=== PATIENT | male | born 1965 | race Caucasian/White ===

== ENCOUNTER 2017-08-19 00:05 | Inpatient (IN) | END 2017-08-22 12:00 | disposition home or self-care (01) | DRG 442 ==

== ENCOUNTER 2017-09-27 04:30 | Inpatient (IN) | END 2017-09-28 19:45 | disposition home health service (06) | DRG 434 ==

== ENCOUNTER 2017-11-21 18:02 | Observation (INO) | END 2017-11-23 16:40 | disposition home or self-care (01) ==

== ENCOUNTER 2018-01-26 21:02 | Inpatient (IN) | END 2018-02-01 18:50 | disposition home or self-care (01) | DRG 444 ==

== ENCOUNTER 2018-04-03 15:17 | Inpatient (IN) | END 2018-04-04 20:50 | disposition home health service (06) | DRG 637 ==

== ENCOUNTER 2018-05-25 19:22 | Inpatient (IN) | END 2018-06-04 20:15 | disposition home health service (06) | DRG 637 ==

== ENCOUNTER 2018-06-22 16:13 | Emergency (ER) | payer BC ==
[~2018-06-22] VITALS: Ht 165.1 cm; Wt 54.3 kg
[~2018-06-22 16:13] MED LIST: AMOX1TAB10 PO; IBUP-1542 PO; INSU100I33 SC; LACT20SO2 PO; PANT40TA4 PO; RIFA550T4 PO; SIME80TA16 PO; SITA25TA3 PO
[2018-06-22 16:16] VITALS: Ht 165.1 cm; Wt 54.3 kg
[2018-06-22] MEDS ORDERED: INSULIN REGULAR, HUMAN 100 UNIT/1 ML 3ML VIAL IVP STA (20:20)
[2018-06-22] MEDS ORDERED: DEXTROSE 50% 50 ML SYRINGE IV PRN (20:30)
[2018-06-22] MEDS ORDERED: SOD CHLORIDE 0.9% 1,000 ML IV ONE ×3 (20:30→22:30)
[2018-06-22] MEDS ORDERED: INSULIN LISPRO 100 UNIT/ML VIAL SC ONE (21:30)
[2018-06-23 00:32] VITALS: BP 115/62; PULSE 70; RESP 20
--- NOTE | 2018-06-23 02:25 | ERD ---
ER Documentation Chief Complaint Chief Complaint DEJESUS, blurry vision, epigastric pain X 1 day HPI 52-year-old male presents for epigastric pain and headache times 1 day. Patient states he has a history of diabetes and liver cirrhosis. States that he has a specialist following up for his liver cirrhosis. He also has history of heavy alcohol use however he states that he has been drinking lately. The epigastric pain is noted to be 7 out of 10. Denies any fevers or chills. Denies nausea or vomiting. He also states that he has mild headache. He has been having bowel movements. No other modifying factors noted. ROS All systems reviewed and are negative except as per history of present illness. Medications Home Meds Active Scripts Amoxicillin/Potassium Clav (Amox-Clav 875-125 mg Tablet) 875-125 mg Tab, 1 TAB PO BID for 7 Days, #14 TAB Prov:DYLAN REBOLLEDO MD 06/04/18 Simethicone (Mi-Acid) 80 Mg Tab.chew, 160 MG PO Q6 PRN for bloating for 30 Days, #120 TAB.CHEW Prov:DYLAN REBOLLEDO MD 06/04/18 Pantoprazole* (Pantoprazole*) 40 Mg Tablet.dr, 40 MG PO AC BREAKFAST DINNER for 30 Days, #60 TAB 6 Refills Prov:DYLAN REBOLLEDO MD 06/04/18 Insulin Glargine,Hum.rec.anlog (Basaglar Kwikpen U-100) 100 Unit/1 Ml Insuln.pen, 30 UNIT SC QHS for 30 Days, #10 EA 6 Refills Prov:DYLAN REBOLLEDO MD 06/04/18 Lactulose* (Lactulose*) 20 Gm/30 Ml Solution, 30 GM PO Q6H for CONSTIPATION for 30 Days, #5 L 6 Refills Prov:DYLAN REBOLLEDO MD 06/04/18 Reported Medications Ibuprofen* (Ibuprofen*) 600 Mg Tablet, 600 MG PO Q6H PRN for PAIN, TAB 05/25/18 Sitagliptin* (Januvia*) 25 Mg Tablet, 25 MG PO DAILY, #30 TAB 05/25/18 Rifaximin* (Xifaxan*) 550 Mg Tablet, 550 MG PO BID, TAB 05/25/18 Allergies Allergies: Coded Allergies: No Known Allergy (Unverified , 05/30/18) PMhx/Soc Medical and Surgical Hx: pt denies Surgical Hx History of Surgery: No Anesthesia Reaction: No Hx Neurological Disorder: Yes (Encephalopathy) Hx Respiratory Disorders: No Hx Cardiac Disorders: Yes (HTN) Hx Psychiatric Problems: Yes (anxiety, depression) Hx Miscellaneous Medical Probl: Yes (alcohol abuse, alcoholic liver disease, hepatic encephalopathy, HTN, DM, ) Hx Alcohol Use: Yes Hx Substance Use: Yes Hx Tobacco Use: Yes Smoking Status: Former smoker Physical Exam Vitals Vital Signs Date Temp Pulse Resp B/P (MAP) Pulse Ox O2 O2 Flow FiO2 Time Delivery Rate 06/23/18 99.1 70 20 115/62 96 Room Air 00:32 (79) 06/22/18 98.6 79 18 132/68 100 16:16 (89) Physical Exam Const: No acute distress, patient is disheveled. Head: Atraumatic Eyes: Eyes are mildly jaundiced ENT: Normal External Ears, Nose and Mouth. Neck: Full range of motion. No meningismus. Resp: Clear to auscultation bilaterally Cardio: Regular rate and rhythm, no murmurs Abd: Soft, non distended. Normal bowel sounds, mild epigastric tenderness to palpation, no McBurney's point tenderness no Ledesma sign, no rebound or guarding noted Skin: No petechiae or rashes Back: No midline or flank tenderness Ext: No cyanosis, or edema Neur: Awake and alert Psych: Normal Mood and Affect Result Diagram: 06/22/18192106/22/181922 Results 24 hrs Laboratory Tests Test 06/22/18 19:22 06/22/18 19:23 06/22/18 21:01 06/22/18 21:21 White Blood Count 4.6 10^3/ul Red Blood Count 3.79 10^6/ul Hemoglobin 13.0 g/dl Hematocrit 37.7 % Mean Corpuscular 99.5 fl Volume Mean Corpuscular 34.3 pg Hemoglobin Mean Corpuscular 34.5 g/dl Hemoglobin Concent Red Cell 12.7 % Distribution Width Platelet Count 69 10^3/UL Mean Platelet 9.6 fl Volume Immature 1.100 % Granulocytes % Neutrophils % % Segmented 60 % Neutrophils % (Manual) Band Neutrophils % 6 % (Manual) Lymphocytes % % Lymphocytes % 19 % (Manual) Monocytes % % Monocytes % 15 % (Manual) Eosinophils % % Basophils % % Nucleated Red Blood 0.0 /100WBC Cells % Immature 0.050 10^3/ul Granulocytes # Neutrophils # 10^3/ul Neutrophils # 2.8 10^3/ul (Manual) Band Neutrophils # 0.2 10^3/ul Lymphocytes 0.8 10^3/ul (Manual) Lymphocytes # 10^3/ul Monocytes # 10^3/ul Monocytes # 0.6 10^3/ul (Manual) Eosinophils # 10^3/ul Basophils # 10^3/ul Nucleated Red Blood 10^3/ul Cells # Platelet Estimate DECREASED Giant Platelets 1 % Polychromasia 1+ Poikilocytosis 2+ Anisocytosis 3+ Macrocytosis 3+ Urine Color STRAW Urine Clarity CLEAR Urine pH 7.0 Urine Specific 1.022 [place] Urine Ketones 1+ mg/dL Urine Nitrite NEGATIVE mg/dL Urine Bilirubin NEGATIVE mg/dL Urine Urobilinogen NEGATIVE mg/dL Urine Leukocyte NEGATIVE Roberto/ul Esterase Urine Hemoglobin NEGATIVE mg/dL Urine Glucose 3+ mg/dL Urine Total Protein NEGATIVE mg/dl Sodium Level 125 mmol/L Potassium Level 4.0 mmol/L Chloride Level 90 mmol/L Carbon Dioxide 20 mmol/L Level Anion Gap 15 Blood Urea Nitrogen 10 mg/dl Creatinine 0.57 mg/dl Est Glomerular > 60 mL/min Filtrat Rate mL/min Glucose Level 679 mg/dl Calcium Level 8.7 mg/dl Total Bilirubin 2.0 mg/dl Direct Bilirubin 0.40 mg/dl Indirect Bilirubin 1.6 mg/dl Aspartate Amino 77 IU/L Transf (AST/SGOT) Alanine 51 IU/L Aminotransferase (A LT/SGPT) Alkaline 349 IU/L Phosphatase Ammonia 30 umol/l Total Protein 7.4 g/dl Albumin 3.2 g/dl Globulin 4.20 g/dl Albumin/Globulin 0.76 Ratio Lipase 163 U/L Ethyl Alcohol Level < 10.0 mg/dl Bedside Glucose 593 mg/dL 589 mg/dL Test 06/22/18 22:11 06/23/18 00:04 Bedside Glucose 466 mg/dL 333 mg/dL Current Medications Medications Dose Sig/Ary Start Time Status Last (Trade) Ordered Route PRN Stop Time Admin Dose Reason Admin Sodium 1,000 ml @ Q1H ONCE 06/22/18 DC 06/22/18 Chloride 1,000 mls/hr IV 20:30 06/22/18 20:48 21:29 Insulin 10 unit ONCE STAT 06/22/18 DC 06/22/18 Human IVP 20:20 06/22/18 21:03 Regular 20:27 (Humulin R) Dextrose ONCE PRN 06/22/18 DC (D50w IV DECREASED 20:30 06/23/18 Syringe) GLUCOSE 00:40 Sodium 1,000 ml @ Q1H ONCE 06/22/18 DC 06/22/18 Chloride 1,000 mls/hr IV 21:30 06/22/18 21:37 22:29 Insulin 10 unit ONCE ONCE 06/22/18 DC 06/22/18 Human SC 21:30 06/22/18 21:36 Lispro 21:31 (Humalog) Sodium 1,000 ml @ Q1H ONCE 06/22/18 DC 06/22/18 Chloride 1,000 mls/hr IV 22:30 06/22/18 22:19 23:29 Procedures/MDM Medical Decision Making: Differential diagnosis includes but not limited to acute gastroenteritis, appendicitis, cholecystitis, pancreatitis. Patient appeared well on physical exam. Nontoxic appearing. Abdominal examination was relatively benign. Low suspicion for an acute abdomen Labs: CBC showed mildly low WBC of 4.6, mildly low anemia hemoglobin 13, normal cytopenia with platelet 69 CMP showed hyperglycemia with blood sugar 679, low sodium 125, elevated bilirubin, mild transaminitis Lipase was normal Ammonia level 30 Patient also had a high blood alcohol level Urine was negative for infection The low sodium is due to pseudohyponatremia from the hypoglycemia. Corrected sodium is 139. Given the severe hyperglycemia patient was given 10 units of IV insulin and subsequently 10 units subcutaneous insulin Patient was also given 3 L of fluid. His blood sugar was monitored in the ER closely. Blood sugar did improve to 333. Patient symptoms improved after treatment. Patient states that he has insulin at home and states that he will take them. He does have a history of noncompliance. Reiterated to patient the importance of taking his medications. Patient advised to follow up with PCP in 1-2 days. Patient advised to return to ED for new or worsening symptoms. Patient stable on discharge from the ED. Disclaimer: Inadvertent spelling and grammatical errors are likely due to EHR/dictation software use and do not reflect on the overall quality of patient care. Also, please note that the electronic time recorded on this note does not necessarily reflect the actual time of the patient encounter. Departure Diagnosis: Primary Impression: Hyperglycemia Additional Impressions: Liver cirrhosis Hepatic cirrhosis type: alcoholic cirrhosis Ascites presence: without ascites Qualified Codes: K70.30 - Alcoholic cirrhosis of liver without ascites Thrombocytopenia Alcohol abuse Condition: Fair Patient Instructions: Hyperglycemia (High Blood Sugar) Referrals: COMM[facility] YOU HAVE RECEIVED A MEDICAL SCREENING EXAM AND THE RESULTS INDICATE THAT YOU DO NOT HAVE A CONDITION THAT REQUIRES URGENT TREATMENT IN THE EMERGENCY DEPARTMENT. FURTHER EVALUATION AND TREATMENT OF YOUR CONDITION CAN WAIT UNTIL YOU ARE SEEN IN YOUR DOCTORS OFFICE WITHIN THE NEXT 1-2 DAYS. IT IS YOUR RESPONSIBILITY TO MAKE AN APPOINTMENT FOR FOLOW-UP CARE. IF YOU HAVE A PRIMARY DOCTOR --you should call your primary doctor and schedule an appointment IF YOU DO NOT HAVE A PRIMARY DOCTOR YOU CAN CALL OUR PHYSICIAN REFERRAL HOTLINE AT IF YOU CAN NOT AFFORD TO SEE A PHYSICIAN YOU CAN CHOSE FROM THE FOLLOWING [facility], [facility] [address] [facility] [address] [facility] [facility] [address] [facility] [facility] [address] [facility]. [facility] [address] [facility]. [facility]. [address] Additional Instructions: Call your primary care doctor TOMORROW for an appointment during the next 1-2 days.See the doctor sooner or return here if your condition worsens before your appointment time. MATTHEW MCCRACKEN DO Jun 23, 2018 02:25
== END 2018-06-23 00:39 | disposition home or self-care (01) ==
LOC: FTE 16:13
DX: E11.65 Type 2 diabetes mellitus with hyperglycemia (principal); I10 Essential (primary) hypertension; Z87.891 Personal history of nicotine dependence; Z79.4 Long term (current) use of insulin
CPT/HCPCS: 80053; 80307; 81003; 82140; 82962; 83690; 85025; 96361; 96372; 96374; J1815; J7030; Z7502

== ENCOUNTER 2018-07-04 03:29 | Inpatient (IN) | payer BC ==
[2018-07-04] VITALS (36 sets, daily range): BP systolic 103–136; BP diastolic 56–78; PULSE 110–124; RESP 11–30; Ht 170.2 cm; Wt 62.7 kg
[~2018-07-04] VITALS: Ht 170.2 cm; Wt 62.7 kg
[2018-07-04] MEDS ORDERED: ONDANSETRON 4 MG INJ IV STA (06:49)
[2018-07-04] MEDS ORDERED: morphine 4 MG/ML VIAL IV STA (06:49)
[2018-07-04] MEDS ORDERED: SOD CHLORIDE 0.9% 630 ML IV ONE (07:00)
--- NOTE | 2018-07-04 07:03 | ERD ---
ER Documentation Chief Complaint Chief Complaint ABD PAIN X1DAY WITH VOMITING HPI 52-year-old [place]-speaking male who is a very limited and poor historian. He refuses to answer most questions. Reviewing the patient's electronic medical record he was here approximately 10 days ago for hyperglycemia and abdominal pain. He has alcohol-related history, possibly cirrhosis. Patient presents today complaining of chest pain and abdominal pain of unclear duration possibly 2 days. The remainder of HPI is exquisitely limited as the patient is refusing to answer any further questions. During the patient's encounter translation services were utilized Language: [place] Source: In person ROS All systems reviewed and are negative except as per history of present illness. Medications Home Meds Active Scripts Simethicone (Mi-Acid) 80 Mg Tab.chew, 160 MG PO Q6 PRN for bloating for 30 Days, #120 TAB.CHEW Prov:DYLAN REBOLLEDO MD 06/04/18 Pantoprazole* (Pantoprazole*) 40 Mg Tablet.dr, 40 MG PO AC BREAKFAST DINNER for 30 Days, #60 TAB 6 Refills Prov:DYLAN REBOLLEDO MD 06/04/18 Insulin Glargine,Hum.rec.anlog (Basaglar Kwikpen U-100) 100 Unit/1 Ml Insuln.pen, 30 UNIT SC QHS for 30 Days, #10 EA 6 Refills Prov:DYLAN REBOLLEDO MD 06/04/18 Lactulose* (Lactulose*) 20 Gm/30 Ml Solution, 30 GM PO Q6H for CONSTIPATION for 30 Days, #5 L 6 Refills Prov:DYLAN REBOLLEDO MD 06/04/18 Reported Medications Ibuprofen* (Ibuprofen*) 600 Mg Tablet, 600 MG PO Q6H PRN for PAIN, TAB 05/25/18 Sitagliptin* (Januvia*) 25 Mg Tablet, 25 MG PO DAILY, #30 TAB 05/25/18 Rifaximin* (Xifaxan*) 550 Mg Tablet, 550 MG PO BID, TAB 05/25/18 Discontinued Scripts Amoxicillin/Potassium Clav (Amox-Clav 875-125 mg Tablet) 875-125 mg Tab, 1 TAB PO BID for 7 Days, #14 TAB Prov:DYLAN REBOLLEDO MD 06/04/18 Allergies Allergies: Coded Allergies: No Known Allergy (Unverified , 07/04/18) PMhx/Soc History of Surgery: No Anesthesia Reaction: No Hx Neurological Disorder: Yes (Encephalopathy) Hx Respiratory Disorders: No Hx Cardiac Disorders: Yes (HTN) Hx Psychiatric Problems: Yes (anxiety, depression) Hx Miscellaneous Medical Probl: Yes (alcohol abuse, alcoholic liver disease, hepatic encephalopathy, HTN, DM, ) Hx Alcohol Use: Yes Hx Substance Use: Yes Hx Tobacco Use: Yes Smoking Status: Current every day smoker Physical Exam Vitals Vital Signs Date Temp Pulse Resp B/P (MAP) Pulse Ox O2 O2 Flow FiO2 Time Delivery Rate 07/04/18 110 21 123/72 100 Room Air 08:00 (89) 07/04/18 96.8 114 28 122/69 98 Room Air 07:10 (86) 07/04/18 96.4 62 19 150/60 99 03:34 (90) Physical Exam General: Extremely disheveled and dehydrated appearing patient, cachectic Head: Normocephalic, atraumatic. Eyes: Pupils equally reactive, EOM intact ENT: Dry mucous membranes Neck: Supple, no lymphadenopathy Respiratory: Kusmal's respirations, lungs clear bilaterally Cardiovascular: RRR, no murmurs, rubs, or gallops Abdominal: Soft, no ascites or fluid wave, mild generalized abdominal tenderness without localization : Deferred MSK: No edema, no unilateral swelling, 5/5 strength Neurologic: Alert and oriented, moving all extremities, normal speech, no focal weakness, no cerebellar signs Skin: No rash Psych: Normal mood Result Diagram: 07/04/18 0730 07/04/18 0730 Results 24 hrs Laboratory Tests Test 07/04/18 06:49 07/04/18 07:10 07/04/18 07:30 07/04/18 08:06 Blood Gas Blood venous Specimen Source Arterial Blood 07/04/2018 7:25:2 Date Drawn 2 AM Arterial Blood OTHER Gas Puncture Site Thierry Test N/A Venous Blood pH 6.896 Venous Blood 22.3 mmHG pCO2 (Temp Corrected) Venous Blood pO2 69.7 mmHG (Temp Corrected) Venous Blood 4.2 mmol/L HCO3 Venous Blood 79.2 mmHG Oxygen Saturation Venous Blood -27.9 mmol/L Base Excess Venous Blood 15.0 g/dl Total Hemoglobin Venous Blood 78.5 % Oxyhemoglobin Venous Blood 0.5 % Methemoglobin Blood Gas A-a O2 53.3 mmHg Differential Carboxyhemoglobi 0.4 % n Blood Gas 37.0 C Temperature Blood Gas ROOM AIR Modality FiO2 21.0 % Blood Gas DM [place] Critical Value Read Back Blood Gas MDA Notified Whom Blood Gas 07/04/2018 7:28:5 Notified Time 8 AM Bedside Glucose > 595 mg/dL 536 mg/dL White Blood 19.7 10^3/ul Count Red Blood Count 3.91 10^6/ul Hemoglobin 13.5 g/dl Hematocrit 43.0 % Mean Corpuscular 110.0 fl Volume Mean Corpuscular 34.5 pg Hemoglobin Mean Corpuscular 31.4 g/dl Hemoglobin Arlene nt Red Cell 14.6 % Distribution Width Platelet Count 113 10^3/UL Mean Platelet 10.1 fl Volume Immature 3.400 % Granulocytes % Neutrophils % 61.3 % Lymphocytes % 24.2 % Monocytes % 10.6 % Eosinophils % 0.2 % Basophils % 0.3 % Nucleated Red 0.6 /100WBC Blood Cells % Immature 0.660 10^3/ul Granulocytes # Neutrophils # 12.1 10^3/ul Lymphocytes # 4.8 10^3/ul Monocytes # 2.1 10^3/ul Eosinophils # 0.0 10^3/ul Basophils # 0.1 10^3/ul Nucleated Red 0.1 10^3/ul Blood Cells # Prothrombin Time 19.1 Sec Prothrombin Time 1.5 Ratio INR 1.60 International Normalized Ratio Activated 33.2 Sec Partial Thrombop last Time Sodium Level 152 mmol/L Potassium Level 4.2 mmol/L Chloride Level 106 mmol/L Carbon Dioxide < 5 mmol/L Level Anion Gap 41 Blood Urea 15 mg/dl Nitrogen Creatinine 1.15 mg/dl Est Glomerular > 60 mL/min Filtrat Rate mL/min Glucose Level 618 mg/dl Hemoglobin A1c 11.3 % Calcium Level 11.6 mg/dl Phosphorus Level 12.7 mg/dl Magnesium Level 2.8 mg/dl Total Bilirubin 0.6 mg/dl Direct Bilirubin 0.00 mg/dl Indirect 0.6 mg/dl Bilirubin Aspartate Amino 115 IU/L Transf (AST/SGOT ) Alanine 61 IU/L Aminotransferase (ALT/SGPT) Alkaline 410 IU/L Phosphatase Ammonia 256 umol/l Troponin I < 0.012 ng/ml Total Protein 7.5 g/dl Albumin 3.6 g/dl Globulin 3.90 g/dl Albumin/Globulin 0.92 Ratio Lipase 304 U/L Current Medications Medications Dose Sig/Ary Start Time Status Last (Trade) Ordered Route PRN Stop Time Admin Dose Reason Admin Sodium 630 ml @ ONCE ONCE 07/04/18 DC 07/04/18 Chloride 630 mls/hr IV 07:00 07:07 07/04/18 07:59 Morphine 4 mg ONCE STAT 07/04/18 DC 07/04/18 Sulfate IV 06:49 07:12 (morphine) 07/04/18 06:53 Ondansetron 4 mg ONCE STAT 07/04/18 DC 07/04/18 HCl (Zofran IV 06:49 07:12 Inj) 07/04/18 06:53 1,000 ml @ Q2H ONCE 07/04/18 DC Multivitamins 500 mls/hr IV 07:30 10 07/04/18 07:30 ml/Thiamine HCl 100 mg/Folic Acid 1 mg/Magnesium Sulfate 2 gm/ Sodium Chloride 1,014.2 ml Q2H2M ONCE 07/04/18 07/04/18 Multivitamins @ 500 mls/ IV 07:30 07:56 10 ml/Folic hr 07/04/18 09:31 Acid 1 mg/Magnesium Sulfate 2 gm/ Sodium Chloride Potassium 1,000 ml @ Q0M IV 07/04/18 Chloride/Sodi 0 mls/hr 07:42 um Chloride Potassium 1,000 ml @ Q0M IV 07/04/18 Chloride/Dext 0 mls/hr 07:42 patricia/ Sod Cl Potassium 1,000 ml @ Q0M IV 07/04/18 Chloride/Sodi 0 mls/hr 07:42 um Chloride Potassium 1,000 ml @ Q0M IV 07/04/18 Chloride/Dext 0 mls/hr 07:42 patricia/ Sod Cl Sodium 1,000 ml @ Q0M IV 07/04/18 Chloride 0 mls/hr 07:42 1,000 ml @ Q0M IV 07/04/18 Dextrose/Sodi 0 mls/hr 07:42 um Chloride Insulin 101 ml @ ER DKA 07/04/18 Human 6.34 mls/hr PROTOCOL IV 08:00 Regular 100 unit/ Sodium Chloride Lactated 630 ml @ ONCE ONCE 07/04/18 07/04/18 Ringer's 630 mls/hr IV 08:00 07:57 1/15/19 08:59 HYPOGLYCEM 07/04/18 Miscellaneous HYPOGLYCEMIA PROTOCOL PRN 08:00 TREATMENT XX Information HYPOGLYCEMIA (* (BS<70) Miscellaneous Pharmacy Order) Dextrose 50 ml Q15M PRN 07/04/18 (D50w IV DECREASED 08:00 Syringe) GLUCOSE Dextrose 25 ml Q15M PRN 07/04/18 (D50w IV DECREASED 08:00 Syringe) GLUCOSE Lactulose 20 gm ONCE ONCE 07/04/18 DC 07/04/18 (Enulose) PO 08:30 08:34 07/04/18 08:31 Cefepime HCl 50 ml @ ONCE ONCE 07/04/18 07/04/18 100 mls/hr IVPB 08:30 08:15 07/04/18 08:59 Sodium 1,000 ml @ Q1H STAT 07/04/18 07/04/18 Chloride 1,000 mls/hr IV 08:12 08:16 07/04/18 09:11 Lidocaine 5 ml ONCE ONCE 07/04/18 DC (Xylocaine SC 08:30 1% (Mpf)) 07/04/18 08:31 Procedures/MDM EKG, MONITORS, & DIAGNOSTIC IMAGING: EKG: I reviewed and interpreted a 12-lead EKG. Rhythm: Sinus tachycardia, wandering baseline ST Changes: No contiguous ST segment elevations T waves: No contiguous T wave inversions Impression: Abnormal EKG Chest x-ray: I reviewed and interpreted a 1 view of the chest Mediastinum: No enlargement Cardiac silhouette: No cardiomegaly Airspace: Clear lung becerra bilaterally without evidence of pneumothorax Bones: No evidence of fracture CT abdomen and pelvis: IMPRESSION: 1. Cirrhosis without focal hepatic lesion. 2. Borderline splenomegaly without focal splenic lesion. 3. Portal venous hypertension. 4. 9 mm calcified gallstone with otherwise unremarkable gallbladder. Biliary ductal dilation. 5. Small hiatal hernia. LAB INTERPRETATION: * CBC reveals elevated white count of 19.7, hemoglobin 13.5 consistent with stress response lower concern for infection * Chemistry profile shows hypernatremia of 152 likely secondary to dehydration. Bicarb less than 5 consistent with diabetic ketoacidosis and anion gap of 41. Hyperglycemia noted. Ammonia is also significantly elevated at 256 MEDICAL DECISION MAKING: The patient provides a very limited and difficult history. However based on the patient's prior presentation of hyperglycemia, alcohol abuse a broad differential exists. Consider possible hepatic encephalopathy, upper GI bleed, perforated viscus, diabetic ketoacidosis, pancreatitis among others. Lower concern for cardiac etiology though EKG and troponin will be appropriate. The patient appears to be significantly dehydrated. He will benefit from fluid resuscitation. Patient likely to benefit from banana bag as well. Screening for DKA will be initiated. Low threshold for hospitalization given his clinical exam and presentation. ER COURSE: * The patient's laboratory testing is convincing for diabetic ketoacidosis. The patient has significant acidosis and significant anion gap. He is critically ill. * The patient was fluid resuscitated with normal saline and lactated Ringer's. The patient also has Sirs criteria with no clear source. This is likely s tress response in the setting of diabetic ketoacidosis though blood cultures, lactic acid, additional saline for 30 cc/kg bolus and empiric antibiotics in the form of cefepime appropriate. * The patient does not have significant ascites that would be consistent with SBP. * The patient's ammonia is additionally significantly elevated. Lactulose provided. The patient is conversive and able to tolerate p.o. * The patient has met criteria for diabetic ketoacidosis. The patient was initiated on the DKA protocol. The patient has been fluid resuscitated and requires intensive care unit * The patient's blood pressure is stable but given critical nature a PICC line has been ordered. He is currently being placed. CONSULTATION: [None] DISPOSITION PLAN: Intensive care unit Accepting care team and consultations: I discussed the current laboratory data, diagnostic imaging and emergency care provided. Admitting team: Dr. Cantu Admitting team indication: Insurance directed Critical Care Note: Total time: 50 minutes Indication/Organ System Threat: Diabetic ketoacidosis I spent the above amount of critical care time with the patient, not including billable procedures. This included chart review, consultations, repeat bedside evaluations, and titration of appropriate medications to prevent cardiopulmonary or respiratory collapse. The patient has Sirs criteria but no clear source of infection in the emergency room setting. This is not consistent with sepsis at this time. Departure Diagnosis: Primary Impression: Diabetic ketoacidosis Diabetes mellitus type: other specified (including ETHAN) Diabetes mellitus complication detail: without coma Qualified Codes: E13.10 - Other specified diabetes mellitus with ketoacidosis without coma Additional Impressions: Severe dehydration Hepatic encephalopathy History of cirrhosis SIRS (systemic inflammatory response syndrome) Hypernatremia Condition: Critical JOLLY CHAIDEZ MD Jul 04, 2018 07:03
[2018-07-04] MEDS ORDERED: MULTIVITAMINS 10 ML, FOLIC ACID 1 MG, MAGNESIUM SULFATE 2 GM in SOD CHLORIDE 0.9% 1,000 ML IV ONE (07:30)
[2018-07-04] MEDS ORDERED: MULTIVITAMINS 10 ML, THIAMINE 100 MG, FOLIC ACID 1 MG, MAGNESIUM SULFATE 2 GM in SOD CH... IV ONE (07:30)
[2018-07-04] MEDS ORDERED: SOD CHLORIDE 0.9% 1,000 ML IV SCH (07:42)
[2018-07-04] MEDS ORDERED: D10/0.45% NACL + KCL 30 MEQ 1,000 ML IV SCH (07:42)
[2018-07-04] MEDS ORDERED: NS + KCL 30 MEQ 1,000 ML IV SCH (07:42)
[2018-07-04] MEDS ORDERED: D10/0.45% NACL + KCL 40 MEQ 1,000 ML IV SCH (07:42)
[2018-07-04] MEDS ORDERED: DEXTROSE 10 %/0.45 % NACL 1,000 ML IV SCH (07:42)
[2018-07-04] MEDS ORDERED: NS + KCL 40 MEQ 1,000 ML IV SCH (07:42)
[2018-07-04] MEDS ORDERED: INSULIN REGULAR, HUMAN 100 UNIT in SOD CHLORIDE 0.9% 100 ML IV SCH ×2 (08:00)
[2018-07-04] MEDS ORDERED: LACTATED RINGER'S 630 ML IV ONE (08:00)
[2018-07-04] MEDS ORDERED: DEXTROSE 50% 50 ML SYRINGE IV PRN ×2 (08:00)
[2018-07-04] MEDS ORDERED: SOD CHLORIDE 0.9% 1,000 ML IV STA (08:12)
[2018-07-04] MEDS ORDERED: LACTULOSE 30ML CUP PO ONE (08:30)
[2018-07-04] MEDS ORDERED: CEFEPIME 1GM/50 ML (PMX) 50 ML IVPB ONE (08:30)
[2018-07-04] MEDS ORDERED: LIDOCAINE 1% (MPF) 5 ML VIAL SC ONE (08:30)
--- NOTE | 2018-07-04 11:55 | NUR ---
PICC Insertion. This nurse to ED for peripherally inserted central catheter (PICC) insertion. Patient awake, alert, oriented x 1. Procedure reviewed, patient agreed to proceed. Signed consent on chart for PICC. RUE prepped with chlorhexidene, then maximum barrier drape applied. 5 FR double lumen Arrow Power PICC inserted into brachial vein, blue tip intact, using U/S guidance and sterile technique. 40CM INTERNAL,0CM EXPOSED. CXR performed; tip confirmed in lower 1/3 SVC. Sterile dressing applied. Patient tolerated procedure well. [id number].
[2018-07-04] MEDS ORDERED: LORAZEPAM 4 MG/ML VIAL IV PRN (12:00)
[2018-07-04] MEDS ORDERED: NA BICARBONATE 8.4% 50 ML SYG IV ONE (12:00)
[2018-07-04] MEDS ORDERED: DEXTROSE 5%-0.45% NACL 1,000 ML IV SCH (12:00)
[2018-07-04] MEDS ORDERED: morphine SULFATE/PF (2 MG/2 ML) SYG IV PRN (12:00)
[2018-07-04] MEDS ORDERED: INSULIN REGULAR, HUMAN 100 UNIT/1 ML 3ML VIAL IV SCH (12:00)
[2018-07-04] MEDS: SOD CHLORIDE 0.45% 1,000 ML IV SCH ×3 (12:08→20:42)
[2018-07-04] MEDS ORDERED: SODIUM CHLORIDE 0.45% 500 ML BAG IV* ONE (12:30)
[2018-07-04] MEDS ORDERED: morphine 2 MG INJ IV STA (13:46)
[2018-07-04] MEDS: THIAMINE 100 MG TAB PO SCH (13:55)
[2018-07-04] MEDS: INSULIN REGULAR, HUMAN 100 UNIT in SOD CHLORIDE 0.9% 100 ML IV SCH ×10 (15:00→22:39)
[2018-07-04] MEDS ORDERED: ALTEPLASE (CATHFLO) 2 MG INJ CATHETER PRN (18:30)
--- NOTE | 2018-07-04 19:40 | NUR ---
pt is AO x 2, Nepalese speaking, moves all extremities, mild weakness noted. Pt is on RA, [address] on monitor, pt has an episode of accelerated junctional for about 2 hrs. Pt is on custom DKA per Dr Cantu. Sufficient urine output present. All the critical labs communicated to Dr Cantu, will monitor closely.
--- NOTE | 2018-07-04 19:53 | RADRPT ---
Vent Rate: 123 bpm RR Interval: 0 msec AK Interval: 0 msec QRS Duration: 90 msec QT Interval: 406 msec QTC Interval: 581 msec P-R-T Ketchum: 0 - -1 - 16 degrees Likely Sinus Tachycardia but baseline artifact Nonspecific ST and T wave abnormality Abnormal ECG Electronically Signed By: Shivam Hooper [id number]
[2018-07-04] MEDS ORDERED: CEFEPIME 1GM/50 ML (PMX) 50 ML IVPB SCH (21:00)
[2018-07-04] MEDS ORDERED: LACTULOSE 30ML CUP PO SCH (22:30)
--- NOTE | 2018-07-04 23:07 | HP ---
DATE OF ADMISSION: 07/04/2018 TIME OF EVALUATION: About 11:00 a.m. PRESENTING COMPLAINTS: Lethargy, severe abdominal pain, nausea and vomiting. 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 He seems to be in significant amount of abdomin al pain and is quite ill. However, this patient presented to the emergency room with abdominal pain and vomiting and was found to be in severe diabetic ketoacidosis, and is being admitted to the intens trent care unit on the insulin drip. The patient is also significantly septic. No other history is ob tainable at this time. There is no evidence of fever. Imaging studies and CT of the abdomen shows c irrhosis, portal venous hypertension, a gallstone and some biliary ductal dilatation. PAST MEDICAL HISTORY: Positive for alcoholic cirrhosis, diabetes mellitus with poor control, history of recurrent DKA, esophagitis and gastritis. PAST SURGICAL HISTORY: There is no documentation of surgery in the chart. FAMILY HISTORY: Positive for diabetes, hypertension, cardiac disease. ALLERGIES: NO KNOWN DRUG ALLERGIES. HOME MEDICATIONS: Reviewed and reconciled. PHYSICAL EXAMINATION: VITAL SIGNS: The patient was tachycardic with a heart rate of 110, temperature 97.3, respiratory rat e 26, blood pressure 134/84 but the patient was admitted and 100% on room air. GENERAL: Lethargic, ill looking, seems to be in significant amount of pain, but is unclear of the lo cation. HEENT: Head is normocephalic. There is scleral jaundice. There is mild conjunctival pallor. Mucou s membranes are dry. NECK: Supple, nontender. CHEST: Clear but diminished breath sounds bilaterally. CARDIOVASCULAR: Tachycardia without added sounds or murmurs. ABDOMEN: Flat, soft. Diffusely tender with normoactive bowel sounds. EXTREMITIES: There is no lower extremity edema. GENITOURINARY: Normal penis and scrotum. No oozing. LABORATORY VALUES: Leukocytosis of 19,000, hemoglobin 13, platelet count is low at around 13. Chemi stry: Chemistry shows sodium of 157, chloride of 114, carbon dioxide less than 5, anion gap of 38, c reatinine is normal. Glucose is around 58. Lactic acid is 10. Calcium is 10, phosphorus is 10.4, m agnesium is 3.4. Coagulation profile: INR is 1.6. PT is elevated. Urinalysis cloudy, zero bacteri a. No esterase, 3+ glucose, 1+ protein. Blood gas is consistent with acidosis. IMAGING: Chest x-ray showed no acute cardiopulmonary disease. CT of the abdomen and pelvis as abo ve. ASSESSMENT: A 52-year-old male who presents with abdominal pain, nausea and vomiting, who is managed as follows: 1. Recurrent diabetic ketoacidosis. 2. Chronic alcoholic liver cirrhosis. 3. Chronic esophagitis and gastritis. 4. Sepsis versus cirrhosis secondary to #1. 5. Chronic thrombocytopenia secondary to cirrhosis. 6. Multiple electrolyte abnormalities due to volume contraction, including hypocalcemia, hypophospha temia, and hypermagnesemia. 7. Diabetes type 2 with hemoglobin A1c of 11.3. 8. Severe lethargy. 9. Mild toxic metabolic encephalopathy, rule out hepatic encephalopathy. PLAN: ICU admission, DKA protocol with insulin drip and aggressive fluid hydration. We will give pa in medicine and antianxiety at this time to calm the patient. The patient will require further lauren p. Empiric antibiotics to cover possible gallbladder disease in view of abdominal pain, intravenous PPI therapy, close ICU monitoring and medical management, further interventions per clinical course. Prognosis guarded. Time spent in evaluation was more than 2 hours. Dictated By: MANA TRENT MD, BA/SUSAN Conf#: [id number] DID#: [id number]
[2018-07-05] VITALS (50 sets, daily range): BP systolic 95–145; BP diastolic 50–88; PULSE 71–116; RESP 10–29
[2018-07-05] MEDS ORDERED: LACTULOSE 30ML CUP PO SCH
--- NOTE | 2018-07-05 00:21 | NUR ---
HOD#2 DKA, sepsis pt has remained obtunded but can be roused by voice or tactile stim for brief moments -- enough to follow some commands, not enough to pass a swallow eval. notified. ok to drop an NG but pt is noted to have slight nosebleed. lungs sound clear/dim throughout -- shallow. no resp distress. on RA sinus tach on the monitor. no ectopy noted. abdomen is soft, no BM. RUE PICC is patent, slightly positional. skin intact. no edema noted. insulin gtts infusing per orders --- increasing by 1unit hourly until within stated range. notified on slow down trending of BS. will continue to monitor closely. Addendum: 07/05/18 at 0448 by ANGIE DENSON RN with an anion gap of 9 and serum co2 of 25, customized DKA titration bridged to ICU insulin algorithms per orders. Addendum: 07/05/18 at 0516 by ANGIE DENSON RN AM lactulose given PO seeing as pt was able to eat small bites of thickened liquids/pudding/apple sauce, no coughing, no difficutly
[2018-07-05] MEDS: SOD CHLORIDE 0.45% 1,000 ML IV SCH (03:04)
[2018-07-05] MEDS: INSULIN REGULAR, HUMAN 100 UNIT in SOD CHLORIDE 0.9% 100 ML IV SCH ×2 (04:08)
[2018-07-05] MEDS ORDERED: DEXTROSE 50% 50 ML SYRINGE IV PRN ×2 (04:30)
[2018-07-05] MEDS: ACCU-CHEK XX SCH ×20 (04:57→23:30)
[2018-07-05] MEDS: INSULIN HUMAN REGULAR 100 UNIT in SOD CHLORIDE 0.9% 99 ML IV SCH ×2 (05:01→20:50)
[2018-07-05] MEDS ORDERED: LACTULOSE 30ML CUP ONE (05:02)
[2018-07-05] MEDS: PIPER-TAZO 3.375 GM IV (PMX) 100 ML IVPB SCH ×3 (05:12→21:21)
[2018-07-05] MEDS: PANTOPRAZOLE 40 MG INJ IV SCH (05:12)
[2018-07-05] MEDS: LACTULOSE ENEMA 1,000 ML BTL PR SCH ×3 (05:13→17:56)
[2018-07-05] MEDS ORDERED: LACTULOSE 30ML CUP PR SCH (06:00)
[2018-07-05] MEDS: FOLIC ACID 1 MG TAB PO SCH (08:41)
[2018-07-05] MEDS: THIAMINE 100 MG TAB PO SCH (08:41)
--- NOTE | 2018-07-05 11:30 | PN ---
Date/Time of Note Date/Time of Note DATE: 07/05/18 TIME: 11:28 Assessment/Plan VTE Prophylaxis [place] [facility] [place] risk: 6 [place] [facility] [place] Yes Pharmacological prophylaxis: NA/contraindicated Pharm contraindication: thrombocytopenia Lines/Catheters IV [facility]ter Type (from [facility]): Peripheral IV Urinary Cath still in place: Yes Reason Cath still needed: other (indicate) Assessment/Plan Result Diagram: 07/04/18 0730 07/05/18 0750 Results 24hrs Laboratory Tests Test 07/04/18 11:37 07/04/18 13:05 07/04/18 14:09 07/04/18 14:35 Bedside Glucose 580 *H 536 *H 496 *H Phosphorus Level 6.3 #H Magnesium Level 2.7 H Test 07/04/18 15:14 07/04/18 16:02 07/04/18 16:24 07/04/18 17:00 Bedside Glucose 518 *H 469 *H Blood Gas Blood venous Specimen Source Arterial Blood 07/04/2018 4:30: Date Drawn 53 PM Arterial Blood OTHER Gas Puncture Site Thierry Test N/A Venous Blood pH 7.222 L Venous Blood 19.0 L pCO2 (Temp Corrected) Venous Blood pO2 55.7 H (Temp Corrected) Venous Blood 7.6 L HCO3 Venous Blood 84.1 H Oxygen Saturation Venous Blood -18.0 L Base Excess Venous Blood 11.6 Total Hemoglobin Venous Blood 83.3 Oxyhemoglobin Venous Blood 0.6 Methemoglobin Carboxyhemoglobi 0.3 n Blood Gas 37.0 Temperature Blood Gas ROOM AIR Modality FiO2 21.0 Blood Gas Yeni CORNELIUS RN Critical Value Read Back Blood Gas T [facility] Notified Whom Blood Gas 07/04/2018 4:39: Notified Time 50 PM Urine Color YELLOW Urine Clarity SLIGHTLY CLOUDY A Urine pH 5.0 Urine Specific 1.011 Boyds Urine Ketones 1+ H Urine Nitrite NEGATIVE Urine Bilirubin NEGATIVE Urine NEGATIVE Urobilinogen Urine Leukocyte NEGATIVE Esterase Urine 1 Microscopic RBC Urine 2 Microscopic WBC Urine Bacteria FEW A Urine Hemoglobin 2+ H Urine Glucose 3+ H Urine Total NEGATIVE Protein Test 07/04/18 17:42 07/04/18 17:45 07/04/18 17:47 07/04/18 20:04 Lactic Acid 21.9 *H Level Sodium Level 150 H Potassium Level 3.6 Chloride Level 117 H Carbon Dioxide 11 L Level Anion Gap 22 #H Blood Urea 17 Nitrogen Creatinine 0.91 Est Glomerular > 60 Filtrat Rate mL/min Glucose Level 487 *H Calcium Level 9.4 Phosphorus Level 3.4 # Magnesium Level 2.5 Bedside Glucose 462 *H 433 *H Test 07/04/18 20:59 07/04/18 21:00 07/04/18 22:12 07/04/18 23:02 Bedside Glucose 427 *H 411 *H 420 *H Blood Gas Blood venous Specimen Source Arterial Blood 07/04/2018 9:10: Date Drawn 34 PM Arterial Blood VENOUS LINE Gas Puncture Site Thirery Test N/A Venous Blood pH 7.365 Venous Blood 28.4 L pCO2 (Temp Corrected) Venous Blood pO2 76.8 H (Temp Corrected) Venous Blood 15.9 L HCO3 Venous Blood 94.2 H Oxygen Saturation Venous Blood -8.3 L Base Excess Venous Blood 10.4 Total Hemoglobin Venous Blood 93.4 Oxyhemoglobin Venous Blood 0.5 Methemoglobin Carboxyhemoglobi 0.3 n Blood Gas 37.0 Temperature Blood Gas ROOM AIR Modality FiO2 21.0 Blood Gas [facility] Notified Whom Blood Gas 07/04/2018 9:15: Notified Time 44 PM Sodium Level 149 H Potassium Level 3.8 Chloride Level 115 H Carbon Dioxide 18 L Level Anion Gap 16 H Blood Urea 19 Nitrogen Creatinine 0.78 Est Glomerular > 60 Filtrat Rate mL/min Glucose Level 433 *H Calcium Level 9.1 Phosphorus Level 1.4 #L Magnesium Level 2.1 Test 07/05/18 00:02 07/05/18 01:02 07/05/18 02:02 07/05/18 02:30 Bedside Glucose 364 H 348 H 301 H Sodium Level 154 H Potassium Level 3.8 Chloride Level 120 H Carbon Dioxide 25 Level Anion Gap 9 # Blood Urea 25 H Nitrogen Creatinine 0.75 Est Glomerular > 60 Filtrat Rate mL/min Glucose Level 272 #H Calcium Level 9.3 Phosphorus Level < 0.5 L Magnesium Level 2.2 Test 07/05/18 03:02 07/05/18 04:02 07/05/18 04:40 07/05/18 04:54 Bedside Glucose 259 H 195 149 Sodium Level 154 H Potassium Level 3.5 Chloride Level 121 H Carbon Dioxide 25 Level Anion Gap 8 Blood Urea 26 H Nitrogen Creatinine 0.69 Est Glomerular > 60 Filtrat Rate mL/min Glucose Level 152 # Calcium Level 9.4 Phosphorus Level 0.8 L Magnesium Level 2.2 Ammonia 95 #H Test 07/05/18 06:11 07/05/18 06:40 07/05/18 07:50 07/05/18 08:01 Bedside Glucose 126 185 Urine Color YELLOW Urine Clarity CLEAR Urine pH 6.0 Urine Specific 1.015 Boyds Urine Ketones NEGATIVE Urine Nitrite NEGATIVE Urine Bilirubin NEGATIVE Urine NEGATIVE Urobilinogen Urine Leukocyte NEGATIVE Esterase Urine 0 Microscopic RBC Urine 2 Microscopic WBC Urine Hemoglobin 1+ H Urine Glucose NEGATIVE Urine Total NEGATIVE Protein Sodium Level 153 H Potassium Level 3.8 Chloride Level 121 H Carbon Dioxide 27 Level Anion Gap 5 Blood Urea 27 H Nitrogen Creatinine 0.69 Est Glomerular > 60 Filtrat Rate mL/min Glucose Level 154 Calcium Level 9.0 Phosphorus Level 1.6 L Magnesium Level 2.1 Test 07/05/18 09:14 07/05/18 09:20 07/05/18 10:29 Lactic Acid 1.7 Level Bedside Glucose 224 H 226 H Subjective 24 Hr Interval Summary Free Text/Dictation S: lethargic++, O: Constitutional: alert, lethargic, will respond with one word answers Head: atraumatic, normocephalic, mildly icteric Respiratory: diminished Cardiovascular: regular rate and rhythm Gastrointestinal: S/ NT / ND / hypoactive BS Extremities: no edema, good radial pulses Assessment and Plan: A 52-year-old male who presents with abdominal pain, nausea and vomiting, who is managed as follows: 1. Recurrent diabetic ketoacidosis. -resolved -mentation is still very lethargic and weak, remain in ICU for now on critical care infusion -Swallow eval pending 2. Chronic alcoholic liver cirrhosis. 3. Chronic esophagitis and gastritis. 4. Sepsis versus cirrhosis secondary to #1. 5. Chronic thrombocytopenia secondary to cirrhosis. 6. Multiple electrolyte abnormalities due to volume contraction, including hypocalcemia, hypophosphatemia, and hypermagnesemia. 7. Diabetes type 2 with hemoglobin A1c of 11.3. 8. Severe lethargy. 9. Encephalopathy: -This is likely combination of toxic metabolic from DKA as well as hepatic encephalopathy -Await clinical improvement -Speech therapy eval, PT eval, PLAN: -Continue ICU care support -await improvement in mentation -supportive care CRITICAL CARE TIME: >35 mins Exam/Review of Systems Vital Signs Vitals Vital Signs Date Temp Pulse Resp B/P (MAP) Pulse Ox O2 O2 Flow FiO2 Time Delivery Rate 07/05/18 81 12 115/65 99 Room Air 10:00 (82) 07/05/18 96.0 08:00 Intake and Output 07/04/18 07/04/18 07/05/18 1515:00 23:00 07:00 IntakeIntake Total 4286.15 ml 1278 ml 1000 ml OutputOutput Total 600 ml 550 ml 1125 ml BalanceBalance 3686.15 ml 728 ml -125 ml Medications Medications Current Medications Sodium Chloride 1,000 ml @ 150 mls/hr Q6H40M IV Last administered on 07/05/18at 03:04; Admin Dose 150 MLS/HR; Start 07/04/18 at 12:00 Morphine Sulfate (morphine SULFATE (PF)) 2 mg Q4H PRN IV SEVERE PAIN LEVEL 7-10 Last administered on 07/04/18at 12:00; Admin Dose 2 MG; Start 07/04/18 at 12:00 Lorazepam (Ativan) 1 mg Q6H PRN IV anxiety; Start 07/04/18 at 12:00 Thiamine HCl (Vitamin B1) 100 mg DAILY PO Last administered on 07/05/18at 08:41; Admin Dose 100 MG; Start 07/04/18 at 13:00 Folic Acid (Folic Acid) 1 mg DAILY PO Last administered on 07/05/18at 08:41; Admin Dose 1 MG; Start 07/05/18 at 09:00 IV Flush (NS 10 ml) 10 ml PRN PRN IV FLUSH LINE Last administered on 07/04/18at 13:18; Admin Dose 10 ML; Start 07/04/18 at 12:00 Influenza Virus Vaccine Quadrival (Fluzone) 0.5 ml ONCE ONCE IM* ; Start 07/05/18 at 17:00; Stop 07/05/18 at 17:01; Status Future Hold Alteplase, Recombinant (Cathflo (Activase)) 2 mg MAY REPEAT X1 PRN CATHETER IF CATHETER REMAINS OCCULUDED; Start 07/04/18 at 18:30 Pantoprazole (Protonix Iv) 40 mg DAILY@06 IV Last administered on 07/05/18at 05:12; Admin Dose 40 MG; Start 07/05/18 at 06:00 Piperacillin Sod/ Tazobactam Sod 100 ml @ 200 mls/hr Q8 IVPB Last administered on 07/05/18at 05:12; Admin Dose 200 MLS/HR; Start 07/05/18 at 06:00 Lactulose (Lactulose Enema) 100 ml Q6 NM ; Start 07/05/18 at 06:00 Diagnostic Test (Pha) (Accu-Chek) 1 ea Q1H XX Last administered on 07/05/18at 10:44; Admin Dose 1 EA; Start 07/05/18 at 04:30 Insulin Human Regular 100 unit/ Sodium Chloride 100 ml @ 0 mls/hr PER PROTOCOL IV Last administered on 07/05/18at 05:01; Admin Dose 1 MLS/HR; Start 07/05/18 at 04:30 Miscellaneous Information (* Miscellaneous Pharmacy Order) Treatment of Hypoglycemia: 1.BG 51... Per protocol XX ; Start 07/05/18 at 04:30 Dextrose (D50w Syringe) 25 ml Q15M PRN IV DECREASED GLUCOSE; Start 07/05/18 at 04:30 Dextrose (D50w Syringe) 50 ml Q15M PRN IV DECREASED GLUCOSE; Start 07/05/18 at 04:30 MANA TRENT Jul 05, 2018 11:30
[2018-07-05] MEDS: DEXTROSE 5%-0.45% NACL 1,000 ML IV SCH (13:00)
[2018-07-05] MEDS ORDERED: POTASSIUM PHOSPHATE 15 MM in SOD CHLORIDE 0.9% 250 ML IVPB ONE (15:00)
--- NOTE | 2018-07-05 18:57 | NUR ---
pt is AO x 2, Mexican speaking, moves all extremities, mild weakness noted. Pt is on RA, 02 sat 99%. NSR on monitor. Pt is on insulin ggt at 5 units/hr, ALg 4. Sufficient urine output present. Pt did not pass RN swallow eval test. Lactulose administered rectally as enema. All the critical labs communicated to Dr Cantu, will monitor closely. The family: sister and brother updated regarding pt's plan of care and possible outcomes.
[2018-07-06] VITALS (22 sets, daily range): BP systolic 87–125; BP diastolic 60–86; PULSE 58–86; RESP 10–37
[2018-07-06] MEDS: LACTULOSE ENEMA 1,000 ML BTL PR SCH ×3 (00:38→12:21)
[2018-07-06] MEDS: ACCU-CHEK XX SCH ×12 (00:39→12:20)
[2018-07-06] MEDS: DEXTROSE 5%-0.45% NACL 1,000 ML IV SCH ×2 (03:04→08:00)
[2018-07-06] MEDS: PANTOPRAZOLE 40 MG INJ IV SCH (05:17)
[2018-07-06] MEDS: PIPER-TAZO 3.375 GM IV (PMX) 100 ML IVPB SCH ×3 (05:18→22:20)
--- NOTE | 2018-07-06 06:00 | NUR ---
MD VELIZ NOTIFIED OF PATIENT CRITICAL PLATELET VALUE. NO NEW ORDERS
[2018-07-06] MEDS: FOLIC ACID 1 MG TAB PO SCH (09:00)
[2018-07-06] MEDS: THIAMINE 100 MG TAB PO SCH (09:00)
--- NOTE | 2018-07-06 11:15 | PN ---
Date/Time of Note Date/Time of Note DATE: 07/06/18 TIME: 11:12 Assessment/Plan VTE Prophylaxis Risk score (from [facility])>0 risk: 3 SCD applied (from [facility] [place]): Yes Pharmacological prophylaxis: NA/contraindicated Pharm contraindication: thrombocytopenia Lines/Catheters IV Catheter Type (from [facility]): PICC Line Central line still needed: Yes Urinary Cath still in place: Yes Reason Cath still needed: other (indicate) Assessment/Plan Result Diagram: 07/06/1840907/06/18 0410 Results 24hrs Laboratory Tests Test 07/05/18 12:12 07/05/18 12:19 07/05/18 13:08 07/05/18 13:09 Bedside Glucose 140 117 White Blood 10.9 #H Count Red Blood Count 2.64 #L Hemoglobin 9.1 #L Hematocrit 26.6 #L Mean Corpuscular 100.8 Volume Mean Corpuscular 34.5 H Hemoglobin Mean Corpuscular 34.2 Hemoglobin Arlene nt Red Cell 14.3 Distribution Width Platelet Count 33 #L 33 L Mean Platelet 10.6 H Volume Immature 0.500 H Granulocytes % Neutrophils % 78.4 H Segmented 67 Neutrophils % (Manual) Band Neutrophils 10 H % (Manual) Lymphocytes % 12.8 L Lymphocytes % 18 (Manual) Monocytes % 8.1 Monocytes % 5 (Manual) Eosinophils % 0.1 Basophils % 0.1 Nucleated Red 0.3 H Blood Cells % Immature 0.060 H Granulocytes # Neutrophils # 8.6 H Neutrophils # 7.4 (Manual) Band Neutrophils 1.0 H # Lymphocytes 1.9 (Manual) Lymphocytes # 1.4 Monocytes # 0.9 Monocytes # 0.5 (Manual) Eosinophils # 0.0 Basophils # 0.0 Nucleated Red 0.0 Blood Cells # Pathologist Review (Hematolo gy) Platelet SIG DECREASED Estimate Polychromasia 1+ Anisocytosis 2+ Microcytosis 1+ Macrocytosis 1+ Ovalocytes 1+ Path Consult HILTON FRAGOSO Signing Patholog MD ist Sodium Level 148 H Potassium Level 3.3 L Chloride Level 121 H Carbon Dioxide 26 Level Anion Gap 1 L Blood Urea 25 H Nitrogen Creatinine 0.69 Est Glomerular > 60 Filtrat Rate mL/min Glucose Level 130 Calcium Level 8.8 Phosphorus Level 1.5 L Magnesium Level 2.1 Test 07/05/18 14:11 07/05/18 15:44 07/05/18 15:45 07/05/18 16:50 Bedside Glucose 107 171 192 Sodium Level 150 H Potassium Level 3.6 Chloride Level 120 H Carbon Dioxide 27 Level Anion Gap 3 L Blood Urea 24 H Nitrogen Creatinine 0.71 Est Glomerular > 60 Filtrat Rate mL/min Glucose Level 148 Calcium Level 8.9 Phosphorus Level 1.8 L Magnesium Level 2.0 Ammonia 82 H Test 07/05/18 18:47 07/05/18 19:19 07/05/18 20:02 07/05/18 20:23 Bedside Glucose 143 127 103 Sodium Level 152 H Potassium Level 3.4 L Chloride Level 122 H Carbon Dioxide 23 Level Anion Gap 7 Blood Urea 21 H Nitrogen Creatinine 0.62 Est Glomerular > 60 Filtrat Rate mL/min Glucose Level 100 # Calcium Level 8.6 Phosphorus Level 2.4 L Magnesium Level 2.0 Test 07/05/18 21:21 07/05/18 22:38 07/05/18 23:23 07/06/18 00:38 Bedside Glucose 122 136 129 95 Test 07/06/18 00:55 07/06/18 01:42 07/06/18 03:01 07/06/18 03:37 White Blood 9.1 Count Red Blood Count 2.62 L Hemoglobin 9.2 L Hematocrit 26.2 L Mean Corpuscular 100.0 Volume Mean Corpuscular 35.1 H Hemoglobin Mean Corpuscular 35.1 Hemoglobin Arlene nt Red Cell 14.4 Distribution Width Platelet Count 29 *L Mean Platelet 9.3 Volume Immature 0.800 H Granulocytes % Neutrophils % 77.2 H Lymphocytes % 14.9 L Monocytes % 6.8 Eosinophils % 0.1 Basophils % 0.2 Nucleated Red 0.2 H Blood Cells % Immature 0.070 H Granulocytes # Neutrophils # 7.0 Lymphocytes # 1.4 Monocytes # 0.6 Eosinophils # 0.0 Basophils # 0.0 Nucleated Red 0.0 Blood Cells # Sodium Level 152 H Potassium Level 3.0 L Chloride Level 123 H Carbon Dioxide 26 Level Anion Gap 3 L Blood Urea 19 Nitrogen Creatinine 0.71 Est Glomerular > 60 Filtrat Rate mL/min Glucose Level 95 Calcium Level 8.8 Phosphorus Level 2.5 Magnesium Level 2.0 Bedside Glucose 96 85 71 Test 07/06/18 04:10 07/06/18 04:44 07/06/18 05:27 07/06/18 06:47 White Blood 7.6 Count Red Blood Count 2.56 L Hemoglobin 8.9 L Hematocrit 25.6 L Mean Corpuscular 100.0 Volume Mean Corpuscular 34.8 H Hemoglobin Mean Corpuscular 34.8 Hemoglobin Arlene nt Red Cell 14.3 Distribution Width Platelet Count 26 *L Mean Platelet 10.1 Volume Immature 1.000 H Granulocytes % Neutrophils % 74.7 Segmented 65 Neutrophils % (Manual) Band Neutrophils 20 H % (Manual) Lymphocytes % 17.3 Lymphocytes % 13 L (Manual) Monocytes % 6.8 Monocytes % 2 (Manual) Eosinophils % 0.1 Basophils % 0.1 Nucleated Red 1 H Blood Cells % Immature 0.080 H Granulocytes # Neutrophils # 5.7 Neutrophils # 5.1 (Manual) Band Neutrophils 1.5 H # Lymphocytes 0.9 (Manual) Lymphocytes # 1.3 Monocytes # 0.5 Monocytes # 0.1 L (Manual) Eosinophils # 0.0 Basophils # 0.0 Nucleated Red 0.0 Blood Cells # Platelet SIG DECREASED Estimate Polychromasia 1+ Anisocytosis 2+ Macrocytosis 2+ Target Cells 1+ Tear Drop Cells 1+ Sodium Level 149 H Potassium Level 3.1 L Chloride Level 121 H Carbon Dioxide 26 Level Anion Gap 2 L Blood Urea 18 Nitrogen Creatinine 0.63 Est Glomerular > 60 Filtrat Rate mL/min Glucose Level 94 Lactic Acid 1.6 Level Calcium Level 8.4 Phosphorus Level 2.8 Magnesium Level 1.9 Ammonia 58 H Bedside Glucose 106 140 167 Test 07/06/18 08:12 07/06/18 09:20 07/06/18 10:01 07/06/18 11:08 Bedside Glucose 155 127 110 147 Subjective 24 Hr Interval Summary Free Text/Dictation S: lethargic++, O: Constitutional: alert, lethargic, more responsive Head: atraumatic, normocephalic, mildly icteric Respiratory: diminished Cardiovascular: regular rate and rhythm Gastrointestinal: S/ NT / ND / hypoactive BS Extremities: no edema, good radial pulses Assessment and Plan: A 52-year-old male who presents with abdominal pain, nausea and vomiting, who is managed as follows: 1. Recurrent diabetic ketoacidosis. -resolved -mentation is still very lethargic and weak, remains in ICU for now on critical care infusion -Swallow eval pending 2. Chronic alcoholic liver cirrhosis. 3. Chronic esophagitis and gastritis. 4. Sepsis versus cirrhosis secondary to #1. 5. Chronic thrombocytopenia secondary to cirrhosis. 6. Hypernatremia: improving 7. Diabetes type 2 with hemoglobin A1c of 11.3. 8. Severe lethargy. 9. Encephalopathy: -This is likely combination of toxic metabolic from DKA as well as hepatic encephalopathy -Await clinical improvement -Speech therapy eval, PT eval, PLAN: f/u ST assessment, if patient is stable for a diet, will d/c insulin drip and commence basal insulin and transfer out of ICU Continue current critical care micromanagement CRITICAL CARE TIME: >35 mins Exam/Review of Systems Vital Signs Vitals Vital Signs Date Temp Pulse Resp B/P (MAP) Pulse Ox O2 O2 Flow FiO2 Time Delivery Rate 07/06/18 67 16 104/69 88 Room Air 10:00 (81) 07/06/18 98.6 08:00 Intake and Output 07/05/18 07/05/18 07/06/18 1515:00 23:00 07:00 IntakeIntake Total 879 ml 1217.75 ml 1026.0 ml OutputOutput Total 935 ml 560 ml 460 ml BalanceBalance -56 ml 657.75 ml 566.0 ml Medications Medications Current Medications Morphine Sulfate (morphine SULFATE (PF)) 2 mg Q4H PRN IV SEVERE PAIN LEVEL 7-10 Last administered on 07/04/18at 12:00; Admin Dose 2 MG; Start 07/04/18 at 12:00 Lorazepam (Ativan) 1 mg Q6H PRN IV anxiety; Start 07/04/18 at 12:00 Thiamine HCl (Vitamin B1) 100 mg DAILY PO Last administered on 07/05/18at 08:41; Admin Dose 100 MG; Start 07/04/18 at 13:00 Folic Acid (Folic Acid) 1 mg DAILY PO Last administered on 07/05/18at 08:41; Admin Dose 1 MG; Start 07/05/18 at 09:00 IV Flush (NS 10 ml) 10 ml PRN PRN IV FLUSH LINE Last administered on 07/04/18at 13:18; Admin Dose 10 ML; Start 07/04/18 at 12:00 Alteplase, Recombinant (Cathflo (Activase)) 2 mg MAY REPEAT X1 PRN CATHETER IF CATHETER REMAINS OCCULUDED; Start 07/04/18 at 18:30 Pantoprazole (Protonix Iv) 40 mg DAILY@06 IV Last administered on 07/06/18at 05:17; Admin Dose 40 MG; Start 07/05/18 at 06:00 Piperacillin Sod/ Tazobactam Sod 100 ml @ 200 mls/hr Q8 IVPB Last administered on 07/06/18at 05:18; Admin Dose 200 MLS/HR; Start 07/05/18 at 06:00 Lactulose (Lactulose Enema) 100 ml Q6 WV Last administered on 07/06/18at 05:18; Admin Dose 100 ML; Start 07/05/18 at 06:00 Insulin Human Regular 100 unit/ Sodium Chloride 100 ml @ 0 mls/hr PER PROTOCOL IV Last administered on 07/05/18at 20:50; Admin Dose 1.5 MLS/HR; Start 07/05/18 at 04:30 Miscellaneous Information (* Miscellaneous Pharmacy Order) Treatment of Hypoglycemia: 1.BG 51... Per protocol XX ; Start 07/05/18 at 04:30 Dextrose (D50w Syringe) 25 ml Q15M PRN IV DECREASED GLUCOSE; Start 07/05/18 at 04:30 Dextrose (D50w Syringe) 50 ml Q15M PRN IV DECREASED GLUCOSE; Start 07/05/18 at 04:30 Dextrose/Sodium Chloride 1,000 ml @ 100 mls/hr Q10H IV Last administered on 07/06/18at 03:04; Admin Dose 100 MLS/HR; Start 07/05/18 at 12:00 Diagnostic Test (Pha) (Accu-Chek) 1 ea Q1H XX Last administered on 07/06/18at 10:03; Admin Dose 1 EA; Start 07/06/18 at 08:00 MANA TRENT Jul 06, 2018 11:15
[2018-07-06] MEDS: POTASSIUM CHLORIDE 100 ML IVPB SCH ×4 (11:39→17:40)
[2018-07-06] MEDS: LACTULOSE 30ML CUP PO SCH ×2 (14:00→22:18)
--- NOTE | 2018-07-06 14:15 | NUR ---
PT [facility] Patient: Rishi Leiva : 1965 Age/Sex: 52/M Unit#: [id number] Room/Bed: [facility]/A User: Cam Mary PT Date: 07/06/18 13:15 Type: PT Technical Record Therapy day number 1 Evaluation Start Time 13:15 Evaluation Total Time 0 min Subjective Denies pain Pain Scale NUMERIC Pain Intensity 0 (0-10) Patient Stated Goal for Pain Relief 0 (0-10) Pain Level Comment denies pain Pre Treatment Vital Signs Stable Yes - 95/71, 62bpm, 100%O2 sats on RA Exercise Assessment Label Bilat Lower Extremity Exercise Type Active Assist ROM Additional Exercise Comments semi-supine APs, heel slides, SLR Supine to Sit Moderate Assist Bed Mobility Sit to Supine Moderate Assist Sitting Tolerance 8 min Additional Mobility Comments difficulty maintaining static sitting balance due to fatigue Patient uses wheelchair Not Applicable Additional Gait Comments TBA Weight Bearing Assessment Label Bilat Lower Extremity Weight Bearing Status Weight Bearing as Meggan Static Sitting Balance Fair minus Dynamic Sitting Balance Poor plus Safety Judgement Poor Activity Tolerance Poor Equipment Present A pump Robin Catheter IV pump Additional Equipment Present FLEXISEAL, ICU LINES Post Treatment Pain Intensity 0 0-10 Variance Documentation SEE PT EVAL PT Technical Record Comment PT EVAL Pt is a 52 yo M with PMH of alcoholic cirrhosis, DM with poor control, recurrent DKA, esophagitis, gastritis who presented to [facility] with abdominal pain, nausea, and vomiting. Admitting diagnoses include recurrent DKA, chronic alcoholic liver cirrhosis, chronic esophagitis and gastritis. Pt received in ICU. Precautions: Fall precautions PLOF: Per pt, pt lives with 2 friends in a H with 2STE. Pt was ambulatory with a FWW and reports requiring assistance for ADL's. Pt does not drive and is not working. CLOF: BENEDICT Paniagua cleared pt for PT evaluation. Pt received supine in bed, vitals assessed and stable, agreeable to PT evaluation. Communication via phone interprter (BELARUSIAN). Noted pt tired and lethargic throughout, replying to phone cell room operator but following about ~75% of commands, difficulty maintaining eyes open throughout. Bed mobility assessment as described above. Pt returned to bed, all needs in reach, no signs of distress, RN notified of pt's status,. Recommendation: Pt evaluation limited due to pt's fatigue and lethargy, difficulty maintaining eyes open and following commands. Pt demonstrates generalized weakness and poor sitting balance, requiring Db to maintain static sitting due to fatigue and weakness. Pt will benefit from additional skilled PT services during hospital stay to improve strength and overall mobility. D/c recommendation pending pt progress. P: Continue c PT POC (daily x 5)
--- NOTE | 2018-07-06 14:33 | NUR ---
Clinical Bedside Swallow Evaluation Completed: Brief Hx: Ms. Blackwell is a 52-year-old male who presents with abdominal pain, nausea and vomiting. Pt currently lethargic and weak and in ICU inorder to address chronic alcoholic liver cirrhosis, Chronic esophagitis and gastritis, Sepsis versus cirrhosis secondary to , Chronic thrombocytopenia secondary to cirrhosis, Hypernatremia which is improving Diabetes type 2 with hemoglobin A1c of 11.3. and acute Encephalopathy (likely toxic metabolic from DKA as well as hepatic encephalopathy). Chest XR completed on 07/04/2018: FINDINGS: Hypoventilatory chest. Cardiomediastinal silhouette is normal. Pulmonary vasculature is normal. Lungs and costophrenic angles are clear. No evidence of acute cardiopulmonary disease. Vitals: RR: 15-19; SPO2: 100% on RA; Labs: WBC: 7.6; Hgb/hct: 8.9L/25.6L; Plt C: 26L (normal is 140-415); NA: 149H; K: 3.1L, Chloride level: 121H; Co2: 26; BUN: 18; AGB PH: 7.365 PLOF: regular and thin liquids (diabetic) Current: NPO pending swallow evaluation Subjective assessment of cognition specific to swallow safety: Pt was drowsy but able to aroused with max stimulation, oriented to self and place, and unable to answer simple wh and/or yes/no questions, slow to response timing and able to follow simple commands. Pt is British-Speaking. Oral mechanism examination completed: Face is symmetrical, lips, tongue and soft palate are symmetrical with 3+/5 tongue strength, dentition noted. P.O trials consisting of the following: ice chips, thin liquids by teaspoon x 3, nectar thick liquids by teaspoon x10, by cup x 1, puree x 5. Pt required max assistance due to generalized weakness and reduced SHERIN. Oral phase of swallow: Reduced oral motor strength/coordination. No anterior oral leakage or residue in the oral cavity after the swallow. Prolonged and reduced bolus manipulation and cohesive formation with puree requiring max stimulation. Delayed anterior to posterior oral transit. Reduced oral control resulting in suspected premature loss into the hypopharynx before initiation of the swallow. Better oral control with NTL by teaspoon verse cup. Pharyngeal phase of swallow: Delayed trigger of swallow up to 4 seconds before initiation with NTL and approx 7 seconds before initiation with puree consistency. Suspected residue in the pharyngeal cavity after the initial swallow requiring prompt from therapist to use a double dry volitional swallow to clear. Pt was able to use a double dry swallow upon request by therapist to clear the residue. Reduced hyolaryngeal excursion and elevation, s/p generalized weakness. Suspect posterior pharyngeal wall constrictor weakness aswell. Suspect penetration with NTL by cup, resulting in an immediate throat clear in the 1 trial and suspect penetration and cannot r/o aspiration with thin liquids by teaspoon resulting in a delayed but productive cough. No s/s of aspiration or penetration were noted with NTL by teaspoon or puree with use of double dry swallow and/or liquid wash. Reduced coordination of breath with swallow safety. Vocal quality was clear across p.o trials. Impression: Oropharyngeal dysphagia associated with waxing/waning in mentation status/level of arousal, reduced oropharyngeal strength/coordination and reduced timing of the swallow impacting swallow safety. Pt is safe to initiate a p.o diet but with use of swallowing strategies and precautions inorder to prevent aspiration. Recommendation: 1. Initiate a Full liquid diet: Pyatt thick liquids by Teaspoon ONLY!!!! NO cup or straws at this time. 2. Administer crushed medication with puree but immediately followed by NTL by teaspoon to prevent build up residue in pharyngeal cavity. 3. Initiate dysphagia therapy 3-5x per week for 1-2 weeks 4. ongoing swallow assessment pending pts overall mentation status.
[2018-07-06] MEDS: INSULIN GLARGINE [LANTus] (100 UNITS/ML) SYG SC SCH (14:40)
[2018-07-06] MEDS: INSULIN ASPART [NOVOLOG] 3 ML PEN SC SCH ×3 (17:35→22:11)
--- NOTE | 2018-07-06 17:55 | NUR ---
REPORT CALLED TO JASEN FOR PT TRANSFER TO ROOM 616B. TRANSPORTATION CALLED AT 0129
--- NOTE | 2018-07-06 18:42 | NUR ---
PT TRANSFERRED TO ROOM 616B VIA BED WITH RN AND TRANSPORTER. PT IS MUCH MORE ALERT THEN THIS AM. PT FOLLOWING COMMANDS. PT'S BELONGINGS PUT IN CLOSET IN ROOM 616B, NA AND RN ARRIVED IN ROOM BEFORE WRIST HEMMER LEFT THE ROOM. TERMINAL PRESS OPERATOR WAS HOOKING PT UP TO THEIR COLORING ROOM WORKER. RN INFORMED PT'S SISTER THAT PT WAS MOVING TO A DIFFERENT ROOM EARLIER, AT THE TIME RN DID NOT KNOW WHAT ROOM. PT CHECKED ON HOURLY AND PRN BY NURSING STAFF.
--- NOTE | 2018-07-06 18:57 | NUR ---
Nurses Note: Pt. got transferred to [facility] from ICU with DKA diagnosis. Last Blood Glucose 120. Pt's Alert and Oriented x3. Pt. on room air. SR on monitor. Pt. is with Robin and Rectal Tube. No wounds noted upon skin assessment. Will continue to monitor and report care to oncoming shift.
[2018-07-07] VITALS (10 sets, daily range): BP systolic 97–105; BP diastolic 59–67; PULSE 60–81; RESP 16–18
[2018-07-07] MEDS: ACCU-CHEK XX SCH ×2 (02:00→21:40)
[2018-07-07] MEDS: PIPER-TAZO 3.375 GM IV (PMX) 100 ML IVPB SCH ×3 (06:12→22:21)
[2018-07-07] MEDS: PANTOPRAZOLE 40 MG INJ IV SCH (06:12)
[2018-07-07] MEDS: LACTULOSE 30ML CUP PO SCH ×3 (06:12→20:32)
--- NOTE | 2018-07-07 06:41 | NUR ---
Pt. on tele monitor. Hourly rounding completed. Bed in lowest position, call light within reach. Pt. platelet count 26. Dr Joseph and Pepe notified. Will endorse continuity of care to day shift.
[2018-07-07] MEDS ORDERED: INSULIN GLARGINE [LANTus] (100 UNITS/ML) SYG SC SCH (08:00)
[2018-07-07] MEDS: THIAMINE 100 MG TAB PO SCH (08:11)
[2018-07-07] MEDS: FOLIC ACID 1 MG TAB PO SCH (08:11)
[2018-07-07] MEDS: INSULIN GLARGINE [LANTus] (100 UNITS/ML) SYG SC SCH (09:00)
[2018-07-07] MEDS: INSULIN ASPART [NOVOLOG] 3 ML PEN SC SCH ×7 (09:00→20:35)
[2018-07-07] MEDS ORDERED: INSULIN GLARGINE [LANTus] (100 UNITS/ML) SYG SC ONE (13:30)
--- NOTE | 2018-07-07 14:08 | NUR ---
SW: ETOH ABUSE SW attempted to conduct a full initial psychosocial assessment on this patient, however patient was lethargic and unable to fully participate in this interview. Patient met with this 52-year-old Macedonian speaking male at bedside with hat and cap parts cutter hand. Patient states he lives with friends at [address] [place] [address]. States that he has two friends who will pick him up from the hospital upon d/c. Patient was not able to provide any additional information. SW will reattempt at a later time.
--- NOTE | 2018-07-07 14:56 | NUR ---
PT NOTE [facility] Patient: Rishi Leiva : 1965 Age/Sex: 52/M Unit#: [id number] Room/Bed: [facility] User: Alyssa Bello PTA Date: 07/07/18 14:56 Type: PT Technical Record Therapy day number 2 Subjective Current complaint of pain Pain Scale NUMERIC Pain Intensity 5 (0-10) Patient Stated Goal for Pain Relief 0 (0-10) Pain Level Comment back pain Exercise Assessment Label Bilat Lower Extremity Exercise Type Active Assist ROM Additional Exercise Comments EOB; APs, LAQ, seated marches, hip abd/add Exercise Start Time 14:33 Exercise End Time 14:48 Total Exercise Time 15 min (8-127) Transfer Training Start Time 14:48 Supine to Sit Moderate Assist Bed Mobility Sit to Supine Moderate Assist Additional Mobility Comments unable to stand d/t pt uncooperative and fatigue Transfer Training End Time 14:56 Total Transfer Training Time 8 min (8-127) Patient uses wheelchair Not Applicable Additional Gait Comments TBA Weight Bearing Assessment Label Bilat Lower Extremity Weight Bearing Status Weight Bearing as Meggan Static Sitting Balance Fair minus Dynamic Sitting Balance Fair minus Safety Judgement Poor Activity Tolerance Poor Equipment Present A pump Robin Catheter IV pump Additional Equipment Present flexiseal Post Treatment Pain Intensity 0 0-10 Total Treament Time 23 min (8-127) Total Minutes 23 Total Units 2 PT Technical Record Comment S: RN cleared pt for PT. Pt c/o 4/10 back pain, however agreeable to tx. See above for assist levels. Performed AAROME while sitting EOB; see technical record for therapeutic exercises. Fair minus sitting balance. Required CGA to maintain sitting EOB. Pt began to feel fatigue and refused OOB activities. Educated pt on benefits of OOB activities however continued to refuse despite max encouragement from this therapist. Returned pt back to bed. Positioned pt to comfort in semifowler. Call light/phone within reach. Bed alarm on. Needs met. A: Poor tolerance to tx. Limited due to fatigue P: Continue w/ POC and progress as tolerated. OOB pending.
[2018-07-07] MEDS ORDERED: morphine LIQ (10 MG/5 ML) CUP PO PRN (16:30)
--- NOTE | 2018-07-07 18:50 | PN ---
Date/Time of Note Date/Time of Note DATE: 07/07/18 TIME: 18:38 Assessment/Plan VTE Prophylaxis Risk score (from Nsg)>0 risk: 7 SCD applied (from Ns): Yes Pharmacological prophylaxis: NA/contraindicated Pharm contraindication: thrombocytopenia Lines/Catheters IV Catheter Type (from Nrsg): PICC Line Central line still needed: Yes Urinary Cath still in place: Yes Reason Cath still needed: other (indicate) Assessment/Plan Assessment/Plan A 52-year-old male known alcoholic with cirrhosis and hx of poorly controlled DM who presents with abdominal pain, nausea and vomiting, who is managed as follows: 1. Recurrent diabetic ketoacidosis.: resolved 2. Diabetes type 2 with hemoglobin A1c of 11.3. -still with suboptimal control, -per nursing, patient is tolerating diet, so will begin to uptitrate insulin dosing 3. Mild Pancreatitis, ?alcoholic vs gallstones -CT also shows gallstones and biliary dilation -No biliary dilation seen on MRCP in 05/2018, will repeat MRCP and get GI consult 4. Chronic alcoholic liver cirrhosis. -with thrombocytopenia, portal HTN, gastrosplenic varices megaloblastic anemia and mild coagulopathy -patient will need counselling regarding alcohol cessation and resources pr ovided once mentation improves -start low dose propranolol as tolerated and resume rifaximin when diarrhea resolves 5. Cholelithiasis + ?cholecystitis -patient has been on zosyn, continue till GI review 6. Encephalopathy with severe debility -This is likely combination of toxic metabolic from DKA as well as hepatic encephalopathy -patient improving, continue lactulose -resume rifaximin at discharge PLAN: -adjust insulin dosing, endo consult -MRCP / GI consult -continue supportive care Result Diagram: 07/07/18 0504 07/07/18 0504 Results 24hrs Laboratory Tests Test 07/06/18 20:11 07/07/18 03:08 07/07/18 05:04 07/07/18 08:03 Bedside Glucose 203 219 231 H White Blood Count 5.1 # Red Blood Count 2.74 L Hemoglobin 9.5 L Hematocrit 28.2 L Mean Corpuscular 102.9 H Volume Mean Corpuscular 34.7 H Hemoglobin Mean Corpuscular 33.7 Hemoglobin Concent Red Cell 14.8 H Distribution Width Platelet Count 26 *L Mean Platelet Volume 11.2 H Immature 0.800 H Granulocytes % Neutrophils % 71.7 Lymphocytes % 20.1 Monocytes % 6.2 Eosinophils % 0.8 Basophils % 0.4 Nucleated Red Blood 0.6 H Cells % Immature 0.040 H Granulocytes # Neutrophils # 3.7 Lymphocytes # 1.0 Monocytes # 0.3 Eosinophils # 0.0 Basophils # 0.0 Nucleated Red Blood 0.0 Cells # Sodium Level 147 H Potassium Level 3.7 Chloride Level 120 H Carbon Dioxide Level 24 Anion Gap 3 L Blood Urea Nitrogen 16 Creatinine 0.60 L Est Glomerular > 60 Filtrat Rate mL/min Glucose Level 230 #H Calcium Level 8.3 L Phosphorus Level 3.3 Magnesium Level 1.8 Total Bilirubin 2.0 H Direct Bilirubin 0.10 Indirect Bilirubin 1.9 H Aspartate Amino 185 H Transf (AST/SGOT) Alanine 80 H Aminotransferase (AL T/SGPT) Alkaline Phosphatase 112 Total Protein 4.9 L Albumin 1.8 L Globulin 3.10 Albumin/Globulin 0.58 Ratio Test 07/07/18 12:03 07/07/18 17:30 Bedside Glucose 298 H 340 H Subjective 24 Hr Interval Summary Free Text/Dictation still very lethargic states abd pain is better pain is located in epigastric area Exam/Review of Systems Vital Signs Vitals Vital Signs Date Temp Pulse Resp B/P (MAP) Pulse Ox O2 O2 Flow FiO2 Time Delivery Rate 07/07/18 64 16:00 07/07/18 98.2 17 101/60 94 15:24 (74) 07/06/18 Room Air 20:00 Intake and Output 07/06/18 07/06/18 07/07/18 1515:00 23:00 07:00 IntakeIntake Total 859.0 ml 418.5 ml 100 ml OutputOutput Total 780 ml 140 ml 550 ml BalanceBalance 79.0 ml 278.5 ml -450 ml Exam Constitutional: alert, oriented, lethargic ++, ill looking, cachectic Head: atraumatic, normocephalic Neck: non-tender, supple Respiratory: clear to auscultation, diminished Cardiovascular: regular rate and rhythm Gastrointestinal: S/ ?tender epigastrium / ND / +BS Extremities: no edema, Medications Medications Current Medications Lorazepam (Ativan) 1 mg Q6H PRN IV anxiety; Start 07/04/18 at 12:00 IV Flush (NS 10 ml) 10 ml PRN PRN IV FLUSH LINE Last administered on 07/04/18at 13:18; Admin Dose 10 ML; Start 07/04/18 at 12:00 Alteplase, Recombinant (Cathflo (Activase)) 2 mg MAY REPEAT X1 PRN CATHETER IF CATHETER REMAINS OCCULUDED; Start 07/04/18 at 18:30 Pantoprazole (Protonix Iv) 40 mg DAILY@06 IV Last administered on 07/07/18at 06:12; Admin Dose 40 MG; Start 07/05/18 at 06:00 Piperacillin Sod/ Tazobactam Sod 100 ml @ 200 mls/hr Q8 IVPB Last administered on 07/07/18at 13:45; Admin Dose 200 MLS/HR; Start 07/05/18 at 06:00 Diagnostic Test (Pha) (Accu-Chek) 1 ea 02 XX Last administered on 07/07/18at 02:00; Admin Dose 1 EA; Start 07/07/18 at 02:00 Insulin Aspart (Novolog Insulin Pen) 3 unit WITH MEALS SC Last administered on 07/07/18at 12:21; Admin Dose 3 UNIT; Start 07/06/18 at 17:35 Insulin Aspart (Novolog Insulin Pen) NOVOLOG *MILD* ALGORITHM WITH MEALS BEDTIME SC Last administered on 07/07/18at 17:38; Admin Dose 5 UNIT; Start 07/06/18 at 17:35 Lactulose (Enulose) 20 gm Q8 PO Last administered on 07/07/18at 13:46; Admin Dose 20 GM; Start 07/06/18 at 14:00 Multivitamins 10 ml/Folic Acid 1 mg/Sodium Chloride 1,010.2 ml @ 80 mls/hr DAILY@09 IVPB ; Start 07/08/18 at 09:00 Insulin Glargine (Lantus) 18 units DAILY@0800 SC ; Start 07/08/18 at 08:00 Morphine Sulfate (morphine) 6 mg Q4H PRN PO SEVERE PAIN LEVEL 7-10; Start 07/07/18 at 16:30 Miscellaneous Information (* Miscellaneous Pharmacy Order) THIAMINE IV FOR USE IN BANANA BAG IS CURRENTLY ... DAILY@0900 XX ; Start 07/08/18 at 09:00 MNAA TRENT Jul 07, 2018 18:48
[2018-07-07] MEDS: LINAGLIPTIN 5 MG TABLET PO SCH (18:57)
[2018-07-07] MEDS ORDERED: DEXTROSE 50% 50 ML SYRINGE IV PRN (19:00)
[2018-07-07] MEDS ORDERED: GLUCOSE GEL 15 GRAM TUBE BUCCAL PRN (19:00)
[2018-07-07] MEDS ORDERED: GLUCOSE GEL 15 GRAM TUBE PO PRN ×2 (19:00)
[2018-07-07] MEDS ORDERED: GLUCAGON 1 MG INJ IM PRN (19:00)
--- NOTE | 2018-07-07 19:04 | NUR ---
Nurses Note: Pt. remained stable. No acute events. Pt. able to tolerate diet very well. Eat almost 100% of meal trays. Pt. blood glucose trending up. Notified Dr. Cantu. Dr. Cantu adjusted medication. Pt. mostly lethargic but easily araousable. Hourly rounding complete. All needs meet. Bed in lowest position. Bed alarm on. Will continue to monitor and report care to day shift. Addendum: 07/07/18 at 1929 by KETAN MONTELONGO RN Report care to cook night. Error in Typing
[2018-07-07] MEDS: PROPRANOLOL 10 MG TAB PO SCH (20:33)
[2018-07-08] VITALS (12 sets, daily range): BP systolic 90–106; BP diastolic 59–62; PULSE 59–67; RESP 16–20
[2018-07-08] MEDS: ACCU-CHEK XX SCH ×5 (02:00→20:13)
[2018-07-08] MEDS: PIPER-TAZO 3.375 GM IV (PMX) 100 ML IVPB SCH ×3 (05:41→23:14)
[2018-07-08] MEDS: PANTOPRAZOLE 40 MG INJ IV SCH (05:41)
--- NOTE | 2018-07-08 06:47 | NUR ---
EOSS Patient remained stable ,no acute respiratory distress, no complaints of pain. Will be endorsed to day shift for continuity of care.
--- NOTE | 2018-07-08 06:58 | NUR ---
Platelets from 26,000 down to 24,000. Reported to Dr. Joseph.
[2018-07-08] MEDS: THIAMINE IV FOR USE IN BANANA BAG IS CURRENTLY NOT AVAILABLE FROM MANUFACTURER. XX SCH (07:59)
[2018-07-08] MEDS ORDERED: INSULIN ASPART [NOVOLOG] 3 ML PEN SC SCH (08:00)
[2018-07-08] MEDS ORDERED: INSULIN GLARGINE [LANTus] (100 UNITS/ML) SYG SC SCH ×2 (08:00)
[2018-07-08] MEDS: LACTULOSE 30ML CUP PO SCH ×2 (08:06→20:11)
[2018-07-08] MEDS: MULTIVITAMINS 10 ML, FOLIC ACID 1 MG in SOD CHLORIDE 0.9% 1,000 ML IVPB SCH (08:07)
[2018-07-08] MEDS: LINAGLIPTIN 5 MG TABLET PO SCH (08:07)
[2018-07-08] MEDS: PROPRANOLOL 10 MG TAB PO SCH ×2 (08:07→20:11)
[2018-07-08] MEDS: INSULIN ASPART [NOVOLOG] 3 ML PEN SC SCH ×6 (08:16→20:10)
--- NOTE | 2018-07-08 11:47 | CONS ---
Date/Time of Note Date/Time of Note DATE: 07/08/18 TIME: 11:39 Assessment/Plan Assessment/Plan Hospital Course Summary Assessment and Plan: Assessment: Pancreatitis 2/2 to ETOh vs gallstone Chronic alcoholic liver cirrhosis -Pancytopenia -Portal venous hypertension Borderline splenomegaly without focal splenic lesion Elevated LFTs with indirect hyperbilirubinemia Cholelithiasis vs cholecystitis Diabetes type 2 Encephalopathy Diabetic ketoacidosis Plan: Monitor labs Pt has already been started on Lactulose (titrate to 3 bm's per day) and propranolol MRCP -pending Endoscopy - risks/benefits/alternatives/indications of procedure and sedation/anesthesia discussed with patient who states understanding and gives informed consent to proceed. Pt is currently on full liquid diet- if sx worsen will change to NPO in am Further recommendations based on clinical course Result Diagram: 07/08/18 0539 07/08/18 0539 Results 24hrs Laboratory Tests Test 07/07/18 12:03 07/07/18 17:30 07/07/18 20:31 07/08/18 02:00 Bedside Glucose 298 H 340 H 235 H 246 H Test 07/08/18 05:39 07/08/18 07:52 White Blood Count 4.6 L Red Blood Count 2.81 L Hemoglobin 9.7 L Hematocrit 28.8 L Mean Corpuscular 102.5 H Volume Mean Corpuscular 34.5 H Hemoglobin Mean Corpuscular 33.7 Hemoglobin Concent Red Cell 14.5 Distribution Width Platelet Count 24 *L Mean Platelet Volume 9.3 Immature 0.600 H Granulocytes % Neutrophils % 72.2 Lymphocytes % 20.7 Monocytes % 4.8 Eosinophils % 1.5 Basophils % 0.2 Nucleated Red Blood 0.0 Cells % Immature 0.030 Granulocytes # Neutrophils # 3.3 Lymphocytes # 1.0 Monocytes # 0.2 L Eosinophils # 0.1 Basophils # 0.0 Nucleated Red Blood 0.0 Cells # Sodium Level 143 Potassium Level 3.4 L Chloride Level 115 H Carbon Dioxide Level 25 Anion Gap 3 L Blood Urea Nitrogen 14 Creatinine 0.59 L Est Glomerular > 60 Filtrat Rate mL/min Glucose Level 189 Calcium Level 8.3 L Phosphorus Level 3.6 Magnesium Level 1.7 Total Bilirubin 2.2 H Direct Bilirubin 0.00 Indirect Bilirubin 2.2 H Aspartate Amino 123 H Transf (AST/SGOT) Alanine 76 H Aminotransferase (AL T/SGPT) Alkaline Phosphatase 110 Total Protein 5.0 L Albumin 1.8 L Globulin 3.20 Albumin/Globulin 0.56 Ratio Amylase Level 149 H Lipase 884 H Bedside Glucose 217 CC: MAKEDA MCARTHUR ; Consultation Date/Type/Reason Admit Date/Time Jul 04, 2018 at 08:52 Date of Consultation: Jul 08, 2018 Type of Consult GI Reason for Consultation Cirrhosis Pancreatitis Hx of Present Illness This is a 52 year old male with PMH decompensated alcoholic liver cirrhosis, UGIB. Pt was admitted to the ED with DKA, upon work-up imaging was obtained revealed Small hiatal hernia. Fluid-filled distended stomach which is otherwise unremarkable, cirrhosis without focal hepatic lesion, borderline splenomegaly without focal splenic lesion, portal venous hypertension, 9 mm calcified gallstone with otherwise unremarkable gallbladder. Biliary ductal dilation. Lipase is elevated at 884, amylase elevated 149. Patient is currently confused alert and oriented to name and year complaining of upper abdominal pain plan for MRCP today. Of note patient previously had an upper endoscopy 01/27/18 esophagitis, gastritis , grade 0-1 EV. Review of Systems: A 12 system, review was conducted and is negative except as noted in the HPI or here. Past Medical History Medications Current Medications Lorazepam (Ativan) 1 mg Q6H PRN IV anxiety; Start 07/04/18 at 12:00 IV Flush (NS 10 ml) 10 ml PRN PRN IV FLUSH LINE Last administered on 07/04/18at 13:18; Admin Dose 10 ML; Start 07/04/18 at 12:00 Alteplase, Recombinant (Cathflo (Activase)) 2 mg MAY REPEAT X1 PRN CATHETER IF CATHETER REMAINS OCCULUDED; Start 07/04/18 at 18:30 Pantoprazole (Protonix Iv) 40 mg DAILY@06 IV Last administered on 07/08/18at 05:41; Admin Dose 40 MG; Start 07/05/18 at 06:00 Diagnostic Test (Pha) (Accu-Chek) 1 ea 02 XX Last administered on 07/07/18at 02:00; Admin Dose 1 EA; Start 07/07/18 at 02:00 Insulin Aspart (Novolog Insulin Pen) NOVOLOG *MILD* ALGORITHM WITH MEALS BEDTIME SC Last administered on 07/08/18at 08:16; Admin Dose 2 UNIT; Start 07/06/18 at 17:35 Multivitamins 10 ml/Folic Acid 1 mg/Sodium Chloride 1,010.2 ml @ 80 mls/hr DAILY@09 IVPB Last administered on 07/08/18at 08:07; Admin Dose 80 MLS/HR; Start 07/08/18 at 09:00 Morphine Sulfate (morphine) 6 mg Q4H PRN PO SEVERE PAIN LEVEL 7-10; Start 07/07/18 at 16:30 Miscellaneous Information (* Miscellaneous Pharmacy Order) THIAMINE IV FOR USE IN [place]NANA BAG IS CURRENTLY ... DAILY@0900 XX ; Start 07/08/18 at 09:00 Insulin Aspart (Novolog Insulin Pen) 7 unit WITH MEALS SC Last administered on 07/08/18at 08:17; Admin Dose 7 UNIT; Start 07/08/18 at 08:00 Insulin Glargine (Lantus) 21 units DAILY@0800 SC Last administered on 07/08/18at 08:16; Admin Dose 21 UNITS; Start 07/08/18 at 08:00 Linagliptin (Tradjenta) 5 mg DAILY PO Last administered on 07/08/18at 08:07; Admin Dose 5 MG; Start 07/07/18 at 18:30 Diagnostic Test (Pha) (Accu-Chek) 1 ea AC MEALS AND BEDTIME XX Last administered on 07/08/18at 07:56; Admin Dose 1 EA; Start 07/07/18 at 21:00 Miscellaneous Information 1 ea NOTE XX ; Start 07/07/18 at 19:00 Glucose (Glutose) 15 gm Q15M PRN PO DECREASED GLUCOSE; Start 07/07/18 at 19:00 Glucose (Glutose) 22.5 gm Q15M PRN PO DECREASED GLUCOSE; Start 07/07/18 at 19:00 Dextrose (D50w Syringe) 25 ml Q15M PRN IV DECREASED GLUCOSE; Start 07/07/18 at 19:00 Dextrose (D50w Syringe) 50 ml Q15M PRN IV DECREASED GLUCOSE; Start 07/07/18 at 19:00 Glucagon (Glucagen) 1 mg Q15M PRN IM DECREASED GLUCOSE; Start 07/07/18 at 19:00 Glucose (Glutose) 15 gm Q15M PRN BUCCAL DECREASED GLUCOSE; Start 07/07/18 at 19:00 Piperacillin Sod/ Tazobactam Sod 100 ml @ 200 mls/hr Q8 IVPB Last administered on 07/08/18at 05:41; Admin Dose 200 MLS/HR; Start 07/07/18 at 22:00 Propranolol HCl (Inderal) 10 mg BID PO Last administered on 07/08/18at 08:07; Admin Dose 10 MG; Start 07/07/18 at 21:00 Lactulose (Enulose) 20 gm Q12 PO Last administered on 07/08/18at 08:06; Admin Dose 20 GM; Start 07/07/18 at 21:00 Allergies: Coded Allergies: No Known Allergy (Unverified , 07/05/18) Past Surgical History Past Surgical Hx: other Social History Smoking Status: Heavy tobacco smoker Exam/Review of Systems Vital Signs Vitals Vital Signs Date Temp Pulse Resp B/P (MAP) Pulse Ox O2 O2 Flow FiO2 Time Delivery Rate 07/08/18 98.2 63 20 95/60 (72) 93 11:28 07/06/18 Room Air 20:00 Intake and Output 07/07/18 07/07/18 07/08/18 1414:59 22:59 06:59 IntakeIntake Total 970 ml 400 ml OutputOutput Total 1350 ml 1000 ml BalanceBalance -380 ml -600 ml Exam PHYSICAL EXAMINATION: GENERAL: Alert & oriented to name confused SKIN: No lesions EYES: Pupils equal reactive to light, no discharge. EARS/NOSE AND THROAT: Ears normal, nose normal, oropharynx brant NECK: Supple, no masses CHEST: Inspection within normal limits. CARDIOVASCULAR: Heart: Regular rate and rhythm RESPIRATORY: Lungs clear to auscultation GASTROINTESTINAL AND LIVER: Abdomen: Soft, non tenderness, non-distended, no hernias, no masses, no organomegaly, no ascites, no guarding, no rebound tenderness, normoactive bowel sounds. Rectal: Deferred Medications Medications Current Medications Lorazepam (Ativan) 1 mg Q6H PRN IV anxiety; Start 07/04/18 at 12:00 IV Flush (NS 10 ml) 10 ml PRN PRN IV FLUSH LINE Last administered on 07/04/18at 13:18; Admin Dose 10 ML; Start 07/04/18 at 12:00 Alteplase, Recombinant (Cathflo (Activase)) 2 mg MAY REPEAT X1 PRN CATHETER IF CATHETER REMAINS OCCULUDED; Start 07/04/18 at 18:30 Pantoprazole (Protonix Iv) 40 mg DAILY@06 IV Last administered on 07/08/18at 05:41; Admin Dose 40 MG; Start 07/05/18 at 06:00 Diagnostic Test (Pha) (Accu-Chek) 1 ea 02 XX Last administered on 07/07/18at 02:00; Admin Dose 1 EA; Start 07/07/18 at 02:00 Insulin Aspart (Novolog Insulin Pen) NOVOLOG *MILD* ALGORITHM WITH MEALS BEDTIME SC Last administered on 07/08/18at 08:16; Admin Dose 2 UNIT; Start 07/06/18 at 17:35 Multivitamins 10 ml/Folic Acid 1 mg/Sodium Chloride 1,010.2 ml @ 80 mls/hr DAILY@09 IVPB Last administered on 07/08/18at 08:07; Admin Dose 80 MLS/HR; Start 07/08/18 at 09:00 Morphine Sulfate (morphine) 6 mg Q4H PRN PO SEVERE PAIN LEVEL 7-10; Start 07/07/18 at 16:30 Miscellaneous Information (* Miscellaneous Pharmacy Order) THIAMINE IV FOR USE IN BANANA BAG IS CURRENTLY ... DAILY@0900 XX ; Start 07/08/18 at 09:00 Insulin Aspart (Novolog Insulin Pen) 7 unit WITH MEALS SC Last administered on 07/08/18at 08:17; Admin Dose 7 UNIT; Start 07/08/18 at 08:00 Insulin Glargine (Lantus) 21 units DAILY@0800 SC Last administered on 07/08/18at 08:16; Admin Dose 21 UNITS; Start 07/08/18 at 08:00 Linagliptin (Tradjenta) 5 mg DAILY PO Last administered on 07/08/18at 08:07; Admin Dose 5 MG; Start 07/07/18 at 18:30 Diagnostic Test (Pha) (Accu-Chek) 1 ea AC MEALS AND BEDTIME XX Last administered on 07/08/18at 07:56; Admin Dose 1 EA; Start 07/07/18 at 21:00 Miscellaneous Information 1 ea NOTE XX ; Start 07/07/18 at 19:00 Glucose (Glutose) 15 gm Q15M PRN PO DECREASED GLUCOSE; Start 07/07/18 at 19:00 Glucose (Glutose) 22.5 gm Q15M PRN PO DECREASED GLUCOSE; Start 07/07/18 at 19:00 Dextrose (D50w Syringe) 25 ml Q15M PRN IV DECREASED GLUCOSE; Start 07/07/18 at 19:00 Dextrose (D50w Syringe) 50 ml Q15M PRN IV DECREASED GLUCOSE; Start 07/07/18 at 19:00 Glucagon (Glucagen) 1 mg Q15M PRN IM DECREASED GLUCOSE; Start 07/07/18 at 19:00 Glucose (Glutose) 15 gm Q15M PRN BUCCAL DECREASED GLUCOSE; Start 07/07/18 at 19:00 Piperacillin Sod/ Tazobactam Sod 100 ml @ 200 mls/hr Q8 IVPB Last administered on 07/08/18at 05:41; Admin Dose 200 MLS/HR; Start 07/07/18 at 22:00 Propranolol HCl (Inderal) 10 mg BID PO Last administered on 07/08/18at 08:07; Admin Dose 10 MG; Start 07/07/18 at 21:00 Lactulose (Enulose) 20 gm Q12 PO Last administered on 07/08/18at 08:06; Admin Dose 20 GM; Start 07/07/18 at 21:00 MAGALY SULTANA Jul 08, 2018 11:47
[2018-07-08] MEDS ORDERED: POTASSIUM CHLORIDE (SR) 20 MEQ TAB PO STA (11:56)
--- NOTE | 2018-07-08 11:58 | NUR ---
Dr. Colón at nurse's station notified of patient's blood sugars consecutively being in 200's as well as, slightly low potassium at 3.4. Per MD will input orders.
--- NOTE | 2018-07-08 12:09 | PN ---
Date/Time of Note Date/Time of Note DATE: 07/08/18 TIME: 12:05 Assessment/Plan VTE Prophylaxis Risk score (from [facility] [place])>0 risk: 7 SCD applied (from [facility] [place]): Yes SCD contraindicated: low risk/ambulating Pharmacological prophylaxis: heparin Lines/Catheters IV Catheter Type (from [facility]): PICC Line Central line still needed: Yes Urinary Cath still in place: Yes Reason Cath still needed: urinary retention Assessment/Plan Problems: (1) Alcohol abuse Status: Chronic Comment: He is receiving thiamine and multiple vitamins B12 and folate. I suspect that he may have some bone marrow toxicity on the basis of his alcohol that is causing some of the decrease in cell lines were seeing. Please note his admission with severe metabolic acidosis was a combination of severe lactic acidosis, and possibly diabetic ketoacidosis all the ketones were not measured (2) History of cirrhosis Status: Acute Comment: Noted. Follow-up. Please note that on imaging there is evidence of some cirrhosis. However he has gallstones and is now developing pancreatitis. Please note his pancreatitis might possibly be a side effect of the DPP 4 inhibitor drug (3) Diabetes mellitus Status: Chronic Comment: I am stopping his DPP 4 inhibitor drug. Given his liver dysfunction I do not want to use very much metformin. Will use a half a tablet twice a day to help compensate no work with the insulins. Qualifiers: Diabetes mellitus type: type 2 Diabetes mellitus terminal gauger insulin use: with terminal gauger use Diabetes mellitus complication status: with unspecified complications Qualified Codes: E11.8 - Type 2 diabetes mellitus with unspecified complications; Z79.4 - detention (current) use of insulin (4) Lactic acidosis Status: Resolved Comment: He had a severe lactic acidosis at the time of admission, and is better now. Please note he is on antibiotics (5) Severe dehydration Status: Resolved Comment: Rehydrated (6) Acute pancreatitis Status: Acute Comment: We are awaiting MRCP to help delineate what could be causing this episode of pancreatitis. Qualifiers: Pancreatitis type: unspecified pancreatitis type Acute pancreatitis complication: no infection or necrosis Qualified Codes: K85.90 - Acute pancreatitis without necrosis or infection, unspecified Result Diagram: 07/08/18 0539 07/08/18 0539 Results 24hrs Laboratory Tests Test 07/07/18 17:30 07/07/18 20:31 07/08/18 02:00 07/08/18 05:39 Bedside Glucose 340 H 235 H 246 H White Blood Count 4.6 L Red Blood Count 2.81 L Hemoglobin 9.7 L Hematocrit 28.8 L Mean Corpuscular 102.5 H Volume Mean Corpuscular 34.5 H Hemoglobin Mean Corpuscular 33.7 Hemoglobin Concent Red Cell 14.5 Distribution Width Platelet Count 24 *L Mean Platelet Volume 9.3 Immature 0.600 H Granulocytes % Neutrophils % 72.2 Lymphocytes % 20.7 Monocytes % 4.8 Eosinophils % 1.5 Basophils % 0.2 Nucleated Red Blood 0.0 Cells % Immature 0.030 Granulocytes # Neutrophils # 3.3 Lymphocytes # 1.0 Monocytes # 0.2 L Eosinophils # 0.1 Basophils # 0.0 Nucleated Red Blood 0.0 Cells # Sodium Level 143 Potassium Level 3.4 L Chloride Level 115 H Carbon Dioxide Level 25 Anion Gap 3 L Blood Urea Nitrogen 14 Creatinine 0.59 L Est Glomerular > 60 Filtrat Rate mL/min Glucose Level 189 Calcium Level 8.3 L Phosphorus Level 3.6 Magnesium Level 1.7 Total Bilirubin 2.2 H Direct Bilirubin 0.00 Indirect Bilirubin 2.2 H Aspartate Amino 123 H Transf (AST/SGOT) Alanine 76 H Aminotransferase (AL T/SGPT) Alkaline Phosphatase 110 Total Protein 5.0 L Albumin 1.8 L Globulin 3.20 Albumin/Globulin 0.56 Ratio Amylase Level 149 H Lipase 884 H Test 07/08/18 07:52 07/08/18 11:53 Bedside Glucose 217 263 H Subjective 24 Hr Interval Summary Free Text/Dictation Patient reports that his stomach is bothering him. Constitutional: no complaints Respiratory: no complaints Cardiovascular: no complaints Gastrointestinal: pain Endocrine: no complaints Exam/Review of Systems Vital Signs Vitals Vital Signs Date Temp Pulse Resp B/P (MAP) Pulse Ox O2 O2 Flow FiO2 Time Delivery Rate 07/08/18 98.2 63 20 95/60 (72) 93 11:28 07/06/18 Room Air 20:00 Intake and Output 07/07/18 07/07/18 07/08/18 1414:59 22:59 06:59 IntakeIntake Total 970 ml 400 ml OutputOutput Total 1350 ml 1000 ml BalanceBalance -380 ml -600 ml Exam Ill-appearing slender male being fed by the nursing staff in bed Constitutional: alert, oriented Neck: supple, non-tender Respiratory: clear to auscultation, normal air movement Cardiovascular: regular rate and rhythm, nl pulses Gastrointestinal: soft, bowel sounds (Bowel sounds are active), tender (Left upper quadrant tenderness) Medications Medications Current Medications Lorazepam (Ativan) 1 mg Q6H PRN IV anxiety; Start 07/04/18 at 12:00 IV Flush (NS 10 ml) 10 ml PRN PRN IV FLUSH LINE Last administered on 07/04/18at 13:18; Admin Dose 10 ML; Start 07/04/18 at 12:00 Alteplase, Recombinant (Cathflo (Activase)) 2 mg MAY REPEAT X1 PRN CATHETER IF CATHETER REMAINS OCCULUDED; Start 07/04/18 at 18:30 Pantoprazole (Protonix Iv) 40 mg DAILY@06 IV Last administered on 07/08/18at 05:41; Admin Dose 40 MG; Start 07/05/18 at 06:00 Diagnostic Test (Pha) (Accu-Chek) 1 ea 02 XX Last administered on 07/07/18at 02:00; Admin Dose 1 EA; Start 07/07/18 at 02:00 Insulin Aspart (Novolog Insulin Pen) NOVOLOG *MILD* ALGORITHM WITH MEALS BEDTIME SC Last administered on 07/08/18at 08:16; Admin Dose 2 UNIT; Start 07/06/18 at 17:35 Multivitamins 10 ml/Folic Acid 1 mg/Sodium Chloride 1,010.2 ml @ 80 mls/hr DAILY@09 IVPB Last administered on 07/08/18at 08:07; Admin Dose 80 MLS/HR; Start 07/08/18 at 09:00 Morphine Sulfate (morphine) 6 mg Q4H PRN PO SEVERE PAIN LEVEL 7-10; Start 07/07/18 at 16:30 Miscellaneous Information (* Miscellaneous Pharmacy Order) THIAMINE IV FOR USE IN BANANA BAG IS CURRENTLY ... DAILY@0900 XX ; Start 07/08/18 at 09:00 Diagnostic Test (Pha) (Accu-Chek) 1 ea AC MEALS AND BEDTIME XX Last administered on 07/08/18at 11:59; Admin Dose 1 EA; Start 07/07/18 at 21:00 Miscellaneous Information 1 ea NOTE XX ; Start 07/07/18 at 19:00 Glucose (Glutose) 15 gm Q15M PRN PO DECREASED GLUCOSE; Start 07/07/18 at 19:00 Glucose (Glutose) 22.5 gm Q15M PRN PO DECREASED GLUCOSE; Start 07/07/18 at 19:00 Dextrose (D50w Syringe) 25 ml Q15M PRN IV DECREASED GLUCOSE; Start 07/07/18 at 19:00 Dextrose (D50w Syringe) 50 ml Q15M PRN IV DECREASED GLUCOSE; Start 07/07/18 at 19:00 Glucagon (Glucagen) 1 mg Q15M PRN IM DECREASED GLUCOSE; Start 07/07/18 at 19:00 Glucose (Glutose) 15 gm Q15M PRN BUCCAL DECREASED GLUCOSE; Start 07/07/18 at 19:00 Piperacillin Sod/ Tazobactam Sod 100 ml @ 200 mls/hr Q8 IVPB Last administered on 07/08/18at 05:41; Admin Dose 200 MLS/HR; Start 07/07/18 at 22:00 Propranolol HCl (Inderal) 10 mg BID PO Last administered on 07/08/18at 08:07; Admin Dose 10 MG; Start 07/07/18 at 21:00 Lactulose (Enulose) 20 gm Q12 PO Last administered on 07/08/18at 08:06; Admin Dose 20 GM; Start 07/07/18 at 21:00 Folic Acid (Folic Acid) 1 mg DAILY PO ; Start 07/08/18 at 12:00 Insulin Aspart (Novolog Insulin Pen) 8 unit WITH MEALS SC ; Start 07/08/18 at 12:00 Insulin Glargine (Lantus) 23 units DAILY@0800 SC ; Start 07/09/18 at 08:00 Insulin Glargine (Lantus) 2 units ONCE ONCE SC ; Start 07/08/18 at 12:30; Stop 07/08/18 at 12:31 ELEUTERIO REHMAN MD Jul 08, 2018 12:09
[2018-07-08] MEDS: FOLIC ACID 1 MG TAB PO SCH (12:14)
[2018-07-08] MEDS ORDERED: INSULIN GLARGINE [LANTus] (100 UNITS/ML) SYG SC ONE (12:30)
--- NOTE | 2018-07-08 13:30 | NUR ---
Patient taken down for MRI, patient in stable condition, continues to remain lethargic. Patient taken down by gilmer with the assistance of transport.
--- NOTE | 2018-07-08 15:07 | NUR ---
PT NOTE [facility] Patient: Rishi Leiva : 1965 Age/Sex: 52/M Unit#: [id number] Room/Bed: [facility] User: Alyssa Bello PTA Date: 07/08/18 15:07 Type: PT Technical Record Therapy day number 3 Subjective Denies pain Pain Scale NUMERIC Pain Intensity 0 (0-10) Patient Stated Goal for Pain Relief 0 (0-10) Pain Level Comment denied pain Exercise Assessment Label Bilat Lower Extremity Exercise Type Active Assist ROM Additional Exercise Comments semifowler; APs, heel slides, hip abd/add/IR/ER, SLR Exercise Start Time 14:44 Exercise End Time 15:07 Total Exercise Time 23 min (8-127) Additional Mobility Comments unable d/t pt lethargic Patient uses wheelchair Not Applicable Additional Gait Comments TBA Weight Bearing Assessment Label Bilat Lower Extremity Weight Bearing Status Weight Bearing as Meggan Additional Balance Assessments Comments unable d/t pt lethargic Safety Judgement Poor Activity Tolerance Poor Equipment Present A pump Robin Catheter IV pump Post Treatment Pain Intensity 0 0-10 Additional Post Treatment Comment lethargic Total Treament Time 23 min (8-127) Total Minutes 23 Total Units 2 PT Technical Record Comment S: BENEDICT Ramos cleared pt for PT. Pt denied pain and agreeable to tx. Per RN, pt has just returned from MRI. O: Recieved pt sleeping in semifowler. Performed AAROME in semifowler; See technical record for therapeutic exercises. Unable to progress d/t pt lethargic A: Poor tolerance to tx. Pt very lethargic. P: Continue w/ POC and progress as tolerated.
--- NOTE | 2018-07-08 18:34 | NUR ---
EOSS: Patient has been lethargic for most of the shift. Patient ate 100% of breakfast and lunch, but only 75% of dinner, as he kept falling asleep. Patient's blood sugar had dropped during dinner time checked twice and it was 62 and 67 and after intervention increased to 88. Dr. Colón notified and orders given to hold night time insulin dose. Patient's pappas catheter intact, PICC line in right arm in place, MVI running at 80 ml/hr, and media monitor in place. Patient is not in any cardiac distress at this time, comfortable and without any complaints.
[2018-07-09] VITALS (10 sets, daily range): BP systolic 91–102; BP diastolic 56–65; PULSE 56–76; RESP 17–18
[2018-07-09] MEDS: ACCU-CHEK XX SCH ×5 (02:00→20:26)
[2018-07-09] MEDS: PANTOPRAZOLE 40 MG INJ IV SCH (05:34)
[2018-07-09] MEDS: PIPER-TAZO 3.375 GM IV (PMX) 100 ML IVPB SCH ×3 (05:34→21:11)
--- NOTE | 2018-07-09 07:25 | NUR ---
EOSS: Patient alert and oriented x3, more awake during shift. No acute distress or discomfort noted. Vital signs stable, hourly rounding done, and repositioning every 2 hours done. Blood sugar overnight within range, no coverage needed.
[2018-07-09] MEDS: INSULIN ASPART [NOVOLOG] 3 ML PEN SC SCH ×8 (08:00→20:28)
[2018-07-09] MEDS: PROPRANOLOL 10 MG TAB PO SCH ×2 (08:04→20:24)
[2018-07-09] MEDS: THIAMINE IV FOR USE IN BANANA BAG IS CURRENTLY NOT AVAILABLE FROM MANUFACTURER. XX SCH (08:04)
[2018-07-09] MEDS: metFORMIN 500 MG TAB PO SCH ×2 (08:04→17:17)
[2018-07-09] MEDS: FOLIC ACID 1 MG TAB PO SCH (08:04)
[2018-07-09] MEDS: MULTIVITAMINS 10 ML, FOLIC ACID 1 MG in SOD CHLORIDE 0.9% 1,000 ML IVPB SCH (08:05)
[2018-07-09] MEDS: LACTULOSE 30ML CUP PO SCH ×2 (08:05→20:25)
[2018-07-09] MEDS: INSULIN GLARGINE [LANTus] (100 UNITS/ML) SYG SC SCH (08:10)
[2018-07-09] MEDS ORDERED: POTASSIUM CHLORIDE (SR) 20 MEQ TAB PO STA (09:26)
--- NOTE | 2018-07-09 09:36 | PN ---
Date/Time of Note Date/Time of Note DATE: 07/09/18 TIME: 09:31 Assessment/Plan VTE Prophylaxis Risk score (from [facility])>0 risk: 7 SCD applied (from [facility]): Yes Pharmacological prophylaxis: NA/contraindicated Pharm contraindication: thrombocytopenia, other (Cirrhosis with thrombocytopenia) Lines/Catheters IV Catheter Type (from [facility]): PICC Line Central line still needed: Yes Urinary Cath still in place: Yes Reason Cath still needed: urinary retention Assessment/Plan Problems: (1) Liver cirrhosis Status: Acute Comment: Patient is already on low-dose beta-blockade using propanolol as opposed to nadolol. Defer management over to GI but would actively consider using a diuretic agent such as Spironolactone with low-dose Lasix to help with the ascites Qualifiers: Hepatic cirrhosis type: alcoholic cirrhosis Ascites presence: with ascites Qualified Codes: K70.31 - Alcoholic cirrhosis of liver with ascites (2) Thrombocytopenia Status: Chronic Comment: Improving. Please note that I do not think the liver see normal platelet count given the severity of his cirrhosis on imaging scan given his splenomegaly evidence of portal hypertension and a shrunken nodular liver. However if we can get him around 50,000 it will be pretty acceptable (3) Portal venous hypertension Status: Chronic Comment: As above. Already on beta-blockade using propanolol as opposed to not allow (4) SIRS (systemic inflammatory response syndrome) Status: Resolved Comment: Resolving nicely (5) Diabetes mellitus Status: Chronic Comment: Adequate control. Please note that we stop the DPP 4 inhibitor due to the onset of pancreatitis in this gentleman. 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 exterminator use Diabetes mellitus complication status: with unspecified complications Qualified Codes: E11.8 - Type 2 diabetes mellitus with unspecified complications; Z79.4 - terminal carman (current) use of insulin (6) Acute pancreatitis Status: Acute Comment: As per gastroenterology Qualifiers: Pancreatitis type: unspecified pancreatitis type Acute pancreatitis compl ication: no infection or necrosis Qualified Codes: K85.90 - Acute pancreatitis without necrosis or infection, unspecified Result Diagram: 07/09/18 0531 07/09/18 0531 Results 24hrs Laboratory Tests Test 07/08/18 11:53 07/08/18 17:22 07/08/18 17:44 07/08/18 18:18 Bedside Glucose 263 H 62 L 72 88 Test 07/08/18 20:03 07/09/18 05:31 07/09/18 08:02 Bedside Glucose 99 134 White Blood Count 4.8 Red Blood Count 2.90 L Hemoglobin 9.9 L Hematocrit 29.5 L Mean Corpuscular 101.7 H Volume Mean Corpuscular 34.1 H Hemoglobin Mean Corpuscular 33.6 Hemoglobin Concent Red Cell 14.6 H Distribution Width Platelet Count 40 #L Mean Platelet Volume 11.0 H Immature 1.000 H Granulocytes % Neutrophils % 54.6 Lymphocytes % 29.5 Monocytes % 11.2 H Eosinophils % 2.9 Basophils % 0.8 Nucleated Red Blood 0.6 H Cells % Immature 0.050 H Granulocytes # Neutrophils # 2.6 Lymphocytes # 1.4 Monocytes # 0.5 Eosinophils # 0.1 Basophils # 0.0 Nucleated Red Blood 0.0 Cells # Sodium Level 138 Potassium Level 3.3 L Chloride Level 111 H Carbon Dioxide Level 23 Anion Gap 4 L Blood Urea Nitrogen 12 Creatinine 0.58 L Est Glomerular > 60 Filtrat Rate mL/min Glucose Level 128 # Calcium Level 7.8 L Total Bilirubin 2.0 H Direct Bilirubin 0.00 Indirect Bilirubin 2.0 H Aspartate Amino 100 H Transf (AST/SGOT) Alanine 67 Aminotransferase (AL T/SGPT) Alkaline Phosphatase 108 Total Protein 4.8 L Albumin 1.8 L Globulin 3.00 Albumin/Globulin 0.60 Ratio Amylase Level 153 H Lipase 810 H Subjective 24 Hr Interval Summary Free Text/Dictation Patient complains it of pain at the ribs especially in the left lower rib cage. Constitutional: no complaints Respiratory: no complaints Cardiovascular: no complaints, other (Test wall pain) Gastrointestinal: no complaints Genitourinary: no complaints Exam/Review of Systems Vital Signs Vitals Vital Signs Date Temp Pulse Resp B/P (MAP) Pulse Ox O2 O2 Flow FiO2 Time Delivery Rate 07/09/18 59 08:31 07/09/18 98.7 18 102/65 94 07:35 (77) 07/06/18 Room Air 20:00 Intake and Output 07/08/18 07/08/18 07/09/18 1515:00 23:00 07:00 IntakeIntake Total 1250 ml 200 ml OutputOutput Total 850 ml 900 ml BalanceBalance 400 ml -700 ml Exam Constitutional: alert, oriented Neck: supple, non-tender Respiratory: clear to auscultation, normal air movement Cardiovascular: regular rate and rhythm, nl pulses, other (Reproducible pain at the left lower rib cage not in the abdomen) Gastrointestinal: soft, nl liver, spleen, non-tender, ascites (Ascites is present) Medications Medications Current Medications Lorazepam (Ativan) 1 mg Q6H PRN IV anxiety; Start 07/04/18 at 12:00 IV Flush (NS 10 ml) 10 ml PRN PRN IV FLUSH LINE Last administered on 07/04/18at 13:18; Admin Dose 10 ML; Start 07/04/18 at 12:00 Alteplase, Recombinant (Cathflo (Activase)) 2 mg MAY REPEAT X1 PRN CATHETER IF CATHETER REMAINS OCCULUDED; Start 07/04/18 at 18:30 Pantoprazole (Protonix Iv) 40 mg DAILY@06 IV Last administered on 07/09/18at 05:34; Admin Dose 40 MG; Start 07/05/18 at 06:00 Diagnostic Test (Pha) (Accu-Chek) 1 ea 02 XX Last administered on 07/07/18at 02:00; Admin Dose 1 EA; Start 07/07/18 at 02:00 Insulin Aspart (Novolog Insulin Pen) NOVOLOG *MILD* ALGORITHM WITH MEALS BEDTIME SC Last administered on 07/08/18at 12:20; Admin Dose 4 UNIT; Start 07/06/18 at 17:35 Multivitamins 10 ml/Folic Acid 1 mg/Sodium Chloride 1,010.2 ml @ 80 mls/hr DAILY@09 IVPB Last administered on 07/09/18at 08:05; Admin Dose 80 MLS/HR; Start 07/08/18 at 09:00 Morphine Sulfate (morphine) 6 mg Q4H PRN PO SEVERE PAIN LEVEL 7-10; Start 07/07/18 at 16:30 Miscellaneous Information (* Miscellaneous Pharmacy Order) THIAMINE IV FOR USE IN BANANA BAG IS CURRENTLY ... DAILY@0900 XX Last administered on 07/09/18at 08:04; Admin Dose 1 EA; Start 07/08/18 at 09:00 Diagnostic Test (Pha) (Accu-Chek) 1 ea AC MEALS AND BEDTIME XX Last administered on 07/09/18at 07:59; Admin Dose 1 EA; Start 07/07/18 at 21:00 Miscellaneous Information 1 ea NOTE XX ; Start 07/07/18 at 19:00 Glucose (Glutose) 15 gm Q15M PRN PO DECREASED GLUCOSE; Start 07/07/18 at 19:00 Glucose (Glutose) 22.5 gm Q15M PRN PO DECREASED GLUCOSE; Start 07/07/18 at 19:00 Dextrose (D50w Syringe) 25 ml Q15M PRN IV DECREASED GLUCOSE; Start 07/07/18 at 19:00 Dextrose (D50w Syringe) 50 ml Q15M PRN IV DECREASED GLUCOSE; Start 07/07/18 at 19:00 Glucagon (Glucagen) 1 mg Q15M PRN IM DECREASED GLUCOSE; Start 07/07/18 at 19:00 Glucose (Glutose) 15 gm Q15M PRN BUCCAL DECREASED GLUCOSE; Start 07/07/18 at 19:00 Piperacillin Sod/ Tazobactam Sod 100 ml @ 200 mls/hr Q8 IVPB Last administered on 07/09/18at 05:34; Admin Dose 200 MLS/HR; Start 07/07/18 at 22:00 Propranolol HCl (Inderal) 10 mg BID PO Last administered on 07/09/18at 08:04; Admin Dose 10 MG; Start 07/07/18 at 21:00 Lactulose (Enulose) 20 gm Q12 PO Last administered on 07/09/18at 08:05; Admin Dose 20 GM; Start 07/07/18 at 21:00 Folic Acid (Folic Acid) 1 mg DAILY PO Last administered on 07/09/18at 08:04; Admin Dose 1 MG; Start 07/08/18 at 12:00 Insulin Aspart (Novolog Insulin Pen) 8 unit WITH MEALS SC Last administered on 07/09/18at 08:11; Admin Dose 8 UNIT; Start 07/08/18 at 12:00 Insulin Glargine (Lantus) 23 units DAILY@0800 SC Last administered on 07/09/18at 08:10; Admin Dose 23 UNITS; Start 07/09/18 at 08:00 Metformin HCl (Glucophage) 250 mg BID WITH MEALS PO Last administered on 07/09/18at 08:04; Admin Dose 250 MG; Start 07/09/18 at 08:00 ELEUTERIO REHMAN MD Jul 09, 2018 09:36
[2018-07-09] MEDS ORDERED: PHYTONADIONE (1 MG/ML PO SYG) PO ONE (10:00)
[2018-07-09] MEDS: SPIRONOLACTONE 25 MG TAB PO SCH (10:22)
--- NOTE | 2018-07-09 13:58 | PN ---
Date/Time of Note Date/Time of Note DATE: 07/09/18 TIME: 13:55 Assessment/Plan VTE Prophylaxis Risk score (from Nsg)>0 risk: 5 SCD applied (from [facility]): Yes Pharmacological prophylaxis: other (scds) Lines/Catheters IV Catheter Type (from Nrsg): Saline Lock Urinary Cath still in place: Yes Reason Cath still needed: other (indicate) (monitor output) Assessment/Plan Hospital Course Summary Assessment and Plan: Assessment: Pancreatitis 2/2 to ETOh vs gallstone Chronic alcoholic liver cirrhosis -Pancytopenia -Portal venous hypertension Borderline splenomegaly without focal splenic lesion Elevated LFTs with indirect hyperbilirubinemia Wall thickening and pericholecystic edema involving the visualized gallbladder with a gallstone -poss 2/2 liver disease Diabetes type 2 Encephalopathy Diabetic ketoacidosis Plan: Monitor labs Pt has already been started on Lactulose (titrate to 3 bm's per day) and propranolol MRCP -Suggestion of mild central intrahepatic biliary ductal dilatation. The visualized common bile duct measures 6 mm, nondilated, however, evaluation for choledocholithiasis is not feasible on this examination due to respiratory motion artifact. Lipase/amylase remain elevated will decrease diet to NPO Patient seen in collaboration with Dr. Raygoza Subjective: Course reviewed with nursing staff Patient interviewed and examined All labs, imaging and other results reviewed The patient c/o upper abd pain 5/10 after pain medications Will change diet to NPO- monitor labs. No plan for ERCP given results of MRCP- and LFTs- Hyperbilirubinemia all indirect and stable, AST trending down, and alk phos WNL. PHYSICAL EXAMINATION: GENERAL: Alert & oriented to name confused SKIN: No lesions EYES: Pupils equal reactive to light, no discharge. EARS/NOSE AND THROAT: Ears normal, nose normal, oropharynx brant NECK: Supple, no masses CHEST: Inspection within normal limits. CARDIOVASCULAR: Heart: Regular rate and rhythm RESPIRATORY: Lungs clear to auscultation GASTROINTESTINAL AND LIVER: Abdomen: Soft, upper abd pain, non-distended, no organomegaly, no guarding, no rebound tenderness, normoactive bowel sounds. Rectal: Deferred Result Diagram: 07/09/18 0531 07/09/18 0531 Results 24hrs Laboratory Tests Test 07/08/18 17:22 07/08/18 17:44 07/08/18 18:18 07/08/18 20:03 Bedside Glucose 62 L 72 88 99 Test 07/09/18 05:31 07/09/18 08:02 07/09/18 11:40 White Blood Count 4.8 Red Blood Count 2.90 L Hemoglobin 9.9 L Hematocrit 29.5 L Mean Corpuscular 101.7 H Volume Mean Corpuscular 34.1 H Hemoglobin Mean Corpuscular 33.6 Hemoglobin Concent Red Cell 14.6 H Distribution Width Platelet Count 40 #L Mean Platelet Volume 11.0 H Immature 1.000 H Granulocytes % Neutrophils % 54.6 Lymphocytes % 29.5 Monocytes % 11.2 H Eosinophils % 2.9 Basophils % 0.8 Nucleated Red Blood 0.6 H Cells % Immature 0.050 H Granulocytes # Neutrophils # 2.6 Lymphocytes # 1.4 Monocytes # 0.5 Eosinophils # 0.1 Basophils # 0.0 Nucleated Red Blood 0.0 Cells # Sodium Level 138 Potassium Level 3.3 L Chloride Level 111 H Carbon Dioxide Level 23 Anion Gap 4 L Blood Urea Nitrogen 12 Creatinine 0.58 L Est Glomerular > 60 Filtrat Rate mL/min Glucose Level 128 # Calcium Level 7.8 L Total Bilirubin 2.0 H Direct Bilirubin 0.00 Indirect Bilirubin 2.0 H Aspartate Amino 100 H Transf (AST/SGOT) Alanine 67 Aminotransferase (AL T/SGPT) Alkaline Phosphatase 108 Total Protein 4.8 L Albumin 1.8 L Globulin 3.00 Albumin/Globulin 0.60 Ratio Amylase Level 153 H Lipase 810 H Bedside Glucose 134 177 Exam/Review of Systems Vital Signs Vitals Vital Signs Date Temp Pulse Resp B/P (MAP) Pulse Ox O2 O2 Flow FiO2 Time Delivery Rate 07/09/18 60 12:19 07/09/18 98.5 18 91/56 (68) 93 Room Air 11:32 Intake and Output 07/08/18 07/08/18 07/09/18 1515:00 23:00 07:00 IntakeIntake Total 1250 ml 300 ml OutputOutput Total 850 ml 900 ml BalanceBalance 400 ml -600 ml Medications Medications Current Medications Lorazepam (Ativan) 1 mg Q6H PRN IV anxiety; Start 07/04/18 at 12:00 IV Flush (NS 10 ml) 10 ml PRN PRN IV FLUSH LINE Last administered on 07/04/18at 13:18; Admin Dose 10 ML; Start 07/04/18 at 12:00 Alteplase, Recombinant (Cathflo (Activase)) 2 mg MAY REPEAT X1 PRN CATHETER IF CATHETER REMAINS OCCULUDED; Start 07/04/18 at 18:30 Pantoprazole (Protonix Iv) 40 mg DAILY@06 IV Last administered on 07/09/18at 05:34; Admin Dose 40 MG; Start 07/05/18 at 06:00 Diagnostic Test (Pha) (Accu-Chek) 1 ea 02 XX Last administered on 07/07/18at 02:00; Admin Dose 1 EA; Start 07/07/18 at 02:00 Insulin Aspart (Novolog Insulin Pen) NOVOLOG *MILD* ALGORITHM WITH MEALS BEDTIME SC Last administered on 07/09/18 11:44; Admin Dose 1 UNIT; Start 07/06/18 at 17:35 Multivitamins 10 ml/Folic Acid 1 mg/Sodium Chloride 1,010.2 ml @ 80 mls/hr DAILY@09 IVPB Last administered on 07/09/18at 08:05; Admin Dose 80 MLS/HR; Start 07/08/18 at 09:00 Morphine Sulfate (morphine) 6 mg Q4H PRN PO SEVERE PAIN LEVEL 7-10 Last administered on 07/09/18at 11:52; Admin Dose 6 MG; Start 07/07/18 at 16:30 Miscellaneous Information (* Miscellaneous Pharmacy Order) THIAMINE IV FOR USE IN BANANA BAG IS CURRENTLY ... DAILY@0900 XX Last administered on 07/09/18at 08:04; Admin Dose 1 EA; Start 07/08/18 at 09:00 Diagnostic Test (Pha) (Accu-Chek) 1 ea AC MEALS AND BEDTIME XX Last ad ministered on 07/09/18at 11:38; Admin Dose 1 EA; Start 07/07/18 at 21:00 Miscellaneous Information 1 ea NOTE XX ; Start 07/07/18 at 19:00 Glucose (Glutose) 15 gm Q15M PRN PO DECREASED GLUCOSE; Start 07/07/18 at 19:00 Glucose (Glutose) 22.5 gm Q15M PRN PO DECREASED GLUCOSE; Start 07/07/18 at 19:00 Dextrose (D50w Syringe) 25 ml Q15M PRN IV DECREASED GLUCOSE; Start 07/07/18 at 19:00 Dextrose (D50w Syringe) 50 ml Q15M PRN IV DECREASED GLUCOSE; Start 07/07/18 at 19:00 Glucagon (Glucagen) 1 mg Q15M PRN IM DECREASED GLUCOSE; Start 07/07/18 at 19:00 Glucose (Glutose) 15 gm Q15M PRN BUCCAL DECREASED GLUCOSE; Start 07/07/18 at 19:00 Piperacillin Sod/ Tazobactam Sod 100 ml @ 200 mls/hr Q8 IVPB Last administered on 07/09/18at 05:34; Admin Dose 200 MLS/HR; Start 07/07/18 at 22:00 Propranolol HCl (Inderal) 10 mg BID PO Last administered on 07/09/18 08:04; Admin Dose 10 MG; Start 07/07/18 at 21:00 Lactulose (Enulose) 20 gm Q12 PO Last administered on 07/09/18 08:05; Admin Dose 20 GM; Start 07/07/18 at 21:00 Folic Acid (Folic Acid) 1 mg DAILY PO Last administered on 07/09/18 08:04; Admin Dose 1 MG; Start 07/08/18 at 12:00 Insulin Aspart (Novolog Insulin Pen) 8 unit WITH MEALS SC Last administered on 07/09/18at 11:43; Admin Dose 8 UNIT; Start 07/08/18 at 12:00 Insulin Glargine (Lantus) 23 units DAILY@0800 SC Last administered on 07/09/18at 08:10; Admin Dose 23 UNITS; Start 07/09/18 at 08:00 Metformin HCl (Glucophage) 250 mg BID WITH MEALS PO Last administered on 07/09/18at 08:04; Admin Dose 250 MG; Start 07/09/18 at 08:00 Spironolactone (Aldactone) 25 mg DAILY PO Last administered on 07/09/18at 10:22; Admin Dose 25 MG; Start 07/09/18 at 10:00 Furosemide (Lasix) 20 mg DAILY PO ; Start 07/10/18 at 09:00 MAGALY SULTANA Jul 09, 2018 13:58
[2018-07-09] MEDS: DEXTROSE 50% 50 ML SYRINGE IV PRN ×2 (17:17→20:33)
--- NOTE | 2018-07-09 18:14 | NUR ---
EOSS Patient stable, diet changed to NPO per GI consult due to elevated pancreatic enzymes and LUQ pain, administered 6mg PO morphine once and patient reported relief, more alert today but still lethargic and slept most of the shift, maintained on banana bag and IV antibiotics, repleted potassium of 3.3 today, pappas catheter patent and draining, blood glucose controlled with hypoglycemic episode this evening that is now resolved and appropriate notifications made, patient refused to be repositioned and refused assessment of sacrum, currently resting comfortably, will endorse to slot shift supervisor.
[2018-07-09] MEDS: DEXTROSE 5%-0.45% NACL 1,000 ML IV SCH (22:35)
[2018-07-10] VITALS (10 sets, daily range): BP systolic 90–109; BP diastolic 51–60; PULSE 54–75; RESP 17–18
[2018-07-10] MEDS: ACCU-CHEK XX SCH ×6 (01:49→21:39)
[2018-07-10] MEDS: DEXTROSE 50% 50 ML SYRINGE IV PRN (01:50)
[2018-07-10] MEDS: PIPER-TAZO 3.375 GM IV (PMX) 100 ML IVPB SCH ×3 (05:04→21:28)
[2018-07-10] MEDS: PANTOPRAZOLE 40 MG INJ IV SCH (05:04)
--- NOTE | 2018-07-10 06:23 | NUR ---
EOSS Patient alert and oriented x3, lethargic and slept throughout shift. Patient had two episodes of hypoglycemia. Hypoglycemic protocol was initiated and was effective. Patient kept NPO. Notified Dr. Joseph of patient's hypoglycemia and diet status- carried out order to give D5 1/2 NS fluids and blood sugar became controlled. All other needs anticipated and met. Patient repositioned every 2 hours. Will endorse to oncoming shift to continue to monitor level of consciousness, blood sugar, and pancreatic enzymes.
[2018-07-10] MEDS: metFORMIN 500 MG TAB PO SCH ×2 (07:42→17:32)
[2018-07-10] MEDS: INSULIN GLARGINE [LANTus] (100 UNITS/ML) SYG SC SCH (07:46)
[2018-07-10] MEDS: INSULIN ASPART [NOVOLOG] 3 ML PEN SC SCH ×7 (07:50→21:00)
[2018-07-10] MEDS: MULTIVITAMINS 10 ML, FOLIC ACID 1 MG in SOD CHLORIDE 0.9% 1,000 ML IVPB SCH (08:52)
[2018-07-10] MEDS: SPIRONOLACTONE 25 MG TAB PO SCH (08:53)
[2018-07-10] MEDS: FOLIC ACID 1 MG TAB PO SCH (08:53)
[2018-07-10] MEDS: PROPRANOLOL 10 MG TAB PO SCH ×2 (08:54→20:28)
[2018-07-10] MEDS: LACTULOSE 30ML CUP PO SCH ×3 (08:54→21:28)
[2018-07-10] MEDS ORDERED: FUROSEMIDE 20 MG TAB PO SCH (09:00)
[2018-07-10] MEDS: THIAMINE IV FOR USE IN BANANA BAG IS CURRENTLY NOT AVAILABLE FROM MANUFACTURER. XX SCH (09:00)
--- NOTE | 2018-07-10 10:22 | NUR ---
ST NOTE: pt now NPO sec. to pancreatitis; pt very upset of NPO status and wants to eat; RN informed; unable to see will f/up when po status reinitiated
--- NOTE | 2018-07-10 11:35 | NUR ---
PT NOTE [facility] Patient: Rishi Leiva : 1965 Age/Sex: 52/M [facility]#: [id number] [facility] Cam [facility] PT Date: 07/10/18 11:10 Type: PT Technical Record Therapy day number 4 Subjective Denies pain Pain Scale NUMERIC Pain Intensity 0 (0-10) Patient Stated Goal for Pain Relief 0 (0-10) Pain Level Comment denies pain Pre Treatment Vital Signs Stable Yes - 92/57, 58bpm Exercise Assessment Label Bilat Lower Extremity Exercise Type Active ROM Additional Exercise Comments seated LAQs, marching; STS x 5 Exercise Start Time 11:09 Exercise End Time 11:25 Total Exercise Time 16 min (8-127) Supine to Sit Stand by Assist Transfer Sit to Stand Ability Stand by Assist Bed Mobility Sit to Supine Stand by Assist Sitting Tolerance 10 min Patient uses wheelchair Not Applicable Gait Training Start Time 11:25 Gait Assist Levels Minimum Assist Assistive Devices Front Wheel Walker Ambulation Distance 80 feet Additional Gait Comments mild unsteady with Db, forward flexed, slow saulo Gait Training End Time 11:35 Total Gait Training Treatment Time 10 min (8-127) Weight Bearing Assessment Label Bilat Lower Extremity Weight Bearing Status Weight Bearing as Meggan Static Sitting Balance Fair plus Dynamic Sitting Balance Fair plus Standing Static Balance Fair Dynamic Standing Balance Fair Additional Balance Assessments Comments FWW Safety Judgement Fair Activity Tolerance Fair Equipment Present A pump Robin Catheter IV pump Post Treatment Pain Intensity 0 0-10 Total Treament Time 26 min (8-127) Total Minutes 26 Total Units 2 PT Technical Record Comment S: Pt reported he was hungry O: Pt received semi-supine in bed, vitals assessed and stable. Pt participated in interventions above including amb of 80' with FWW and mildly unsteady gait. Noted BP in sitting at 104/87 mmHg. Pt returned to bed, all needs in reach, no signs of distress, bed alarm activated. RN notified of pt's status. A; Pt demonstrates improved activity tolerance and strength, able to amb 80' with FWW with mildly unsteady gait. P: Continue c PT POC
--- NOTE | 2018-07-10 11:53 | PN ---
Date/Time of Note Date/Time of Note DATE: 07/10/18 TIME: 11:51 Assessment/Plan VTE Prophylaxis Risk score (from Nsg)>0 risk: 5 SCD applied (from Nsg): Yes Pharmacological prophylaxis: other (scds) Lines/Catheters IV Catheter Type (from Nrsg): PICC Line Central line still needed: Yes (meds) Urinary Cath still in place: Yes Reason Cath still needed: other (indicate) (monitor output) Assessment/Plan Hospital Course Summary Assessment and Plan: Assessment: Pancreatitis 2/2 to ETOh vs gallstone Chronic alcoholic liver cirrhosis -Pancytopenia -Portal venous hypertension Borderline splenomegaly without focal splenic lesion Elevated LFTs with indirect hyperbilirubinemia Wall thickening and pericholecystic edema involving the visualized gallbladder with a gallstone -poss 2/2 liver disease Diabetes type 2 Encephalopathy Diabetic ketoacidosis Plan: Monitor labs Increase Lactulose to q 8hrs (titrate to 3 bm's per day) and propranolol No c/o pain to upper abd- pt does note bilateral rib pain s/p fall at home? Lipase/amylase trending down will restart clear liquid diet today Ct shows ascites which is new from previous imaging obtain in May and in january Plan to correct INR and obtain paracentesis for fluid work-up Patient seen in collaboration with Dr. Raygoza Subjective: Course reviewed with nursing staff Patient interviewed and examined All labs, imaging and other results reviewed The patient c/o upper abd pain 5/10 after pain medications Will change diet to NPO- monitor labs. No plan for ERCP given results of MRCP- and LFTs- Hyperbilirubinemia all indirect and stable, AST trending down, and alk phos WNL. PHYSICAL EXAMINATION: GENERAL: Alert & oriented to name confused SKIN: No lesions EYES: Pupils equal reactive to light, no discharge. EARS/NOSE AND THROAT: Ears normal, nose normal, oropharynx brant NECK: Supple, no masses CHEST: Inspection within normal limits. CARDIOVASCULAR: Heart: Regular rate and rhythm RESPIRATORY: Lungs clear to auscultation GASTROINTESTINAL AND LIVER: Abdomen: Soft, upper abd pain, non-distended, no organomegaly, no guarding, no rebound tenderness, normoactive bowel sounds. Rectal: Deferred Result Diagram: 07/10/18 0403 07/10/18 0403 Results 24hrs Laboratory Tests Test 07/09/18 17:16 07/09/18 17:33 07/09/18 17:47 07/09/18 17:48 Bedside Glucose 56 L 174 136 Glucose Level 113 Test 07/09/18 20:19 07/09/18 20:55 07/10/18 01:44 07/10/18 02:13 Bedside Glucose 59 L 95 57 L 146 Test 07/10/18 04:02 07/10/18 04:03 07/10/18 07:40 Prothrombin Time 26.0 #H Prothrombin Time 2.0 Ratio INR International 2.37 Normalized Ratio Activated 45.5 H Partial Thromboplast Time White Blood Count 3.9 L Red Blood Count 2.88 L Hemoglobin 9.8 L Hematocrit 29.2 L Mean Corpuscular 101.4 H Volume Mean Corpuscular 34.0 H Hemoglobin Mean Corpuscular 33.6 Hemoglobin Concent Red Cell 14.8 H Distribution Width Platelet Count 42 L Mean Platelet Volume 9.9 Immature 2.300 H Granulocytes % Neutrophils % 53.9 Lymphocytes % 26.3 Monocytes % 13.1 H Eosinophils % 3.6 Basophils % 0.8 Nucleated Red Blood 0.0 Cells % Immature 0.090 H Granulocytes # Neutrophils # 2.1 Lymphocytes # 1.0 Monocytes # 0.5 Eosinophils # 0.1 Basophils # 0.0 Nucleated Red Blood 0.0 Cells # Sodium Level 138 Potassium Level 3.5 Chloride Level 113 H Carbon Dioxide Level 22 Anion Gap 3 L Blood Urea Nitrogen 10 Creatinine 0.54 L Est Glomerular > 60 Filtrat Rate mL/min Glucose Level 105 Calcium Level 7.6 L Magnesium Level 1.7 Total Bilirubin 1.9 H Direct Bilirubin 0.00 Indirect Bilirubin 1.9 H Aspartate Amino 96 H Transf (AST/SGOT) Alanine 64 Aminotransferase (AL T/SGPT) Alkaline Phosphatase 103 Ammonia 60 H Total Protein 4.7 L Albumin 1.7 L Globulin 3.00 Albumin/Globulin 0.56 Ratio Amylase Level 160 H Lipase 441 H Bedside Glucose 107 Exam/Review of Systems Vital Signs Vitals Vital Signs Date Temp Pulse Resp B/P (MAP) Pulse Ox O2 O2 Flow FiO2 Time Delivery Rate 07/10/18 98.4 75 18 95/59 (71) 100 11:44 07/09/18 Room Air 11:32 Intake and Output 07/09/18 07/09/18 07/10/18 1515:00 23:00 07:00 IntakeIntake Total 100 ml 500 ml 40 ml OutputOutput Total 1000 ml 2500 ml BalanceBalance 100 ml -500 ml -2460 ml Medications Medications Current Medications Lorazepam (Ativan) 1 mg Q6H PRN IV anxiety; Start 07/04/18 at 12:00 IV Flush (NS 10 ml) 10 ml PRN PRN IV FLUSH LINE Last administered on 07/04/18at 13:18; Admin Dose 10 ML; Start 07/04/18 at 12:00 Alteplase, Recombinant (Cathflo (Activase)) 2 mg MAY REPEAT X1 PRN CATHETER IF CATHETER REMAINS OCCULUDED; Start 07/04/18 at 18:30 Pantoprazole (Protonix Iv) 40 mg DAILY@06 IV Last administered on 07/10/18at 05:04; Admin Dose 40 MG; Start 07/05/18 at 06:00 Diagnostic Test (Pha) (Accu-Chek) 1 ea 02 XX Last administered on 07/10/18at 01:49; Admin Dose 1 EA; Start 07/07/18 at 02:00 Insulin Aspart (Novolog Insulin Pen) NOVOLOG *MILD* ALGORITHM WITH MEALS BEDTIME SC Last administered on 07/09/18 11:44; Admin Dose 1 UNIT; Start 07/06/18 at 17:35 Multivitamins 10 ml/Folic Acid 1 mg/Sodium Chloride 1,010.2 ml @ 80 mls/hr DAILY@09 IVPB Last administered on 07/10/18at 08:52; Admin Dose 80 MLS/HR; Start 07/08/18 at 09:00 Morphine Sulfate (morphine) 6 mg Q4H PRN PO SEVERE PAIN LEVEL 7-10 Last administered on 07/09/18at 11:52; Admin Dose 6 MG; Start 07/07/18 at 16:30 Miscellaneous Information (* Miscellaneous Pharmacy Order) THIAMINE IV FOR USE IN BANANA BAG IS CURRENTLY ... DAILY@0900 XX Last administered on 07/09/18at 08:04; Admin Dose 1 EA; Start 07/08/18 at 09:00 Diagnostic Test (Pha) (Accu-Chek) 1 ea AC MEALS AND BEDTIME XX Last administered on 07/10/18at 11:37; Admin Dose 1 EA; Start 07/07/18 at 21:00 Miscellaneous Information 1 ea NOTE XX ; Start 07/07/18 at 19:00 Glucose (Glutose) 15 gm Q15M PRN PO DECREASED GLUCOSE; Start 07/07/18 at 19:00 Glucose (Glutose) 22.5 gm Q15M PRN PO DECREASED GLUCOSE; Start 07/07/18 at 19:00 Dextrose (D50w Syringe) 25 ml Q15M PRN IV DECREASED GLUCOSE Last administered on 07/10/18at 01:50; Admin Dose 25 ML; Start 07/07/18 at 19:00 Dextrose (D50w Syringe) 50 ml Q15M PRN IV DECREASED GLUCOSE; Start 07/07/18 at 19:00 Glucagon (Glucagen) 1 mg Q15M PRN IM DECREASED GLUCOSE; Start 07/07/18 at 19:00 Glucose (Glutose) 15 gm Q15M PRN BUCCAL DECREASED GLUCOSE; Start 07/07/18 at 19:00 Piperacillin Sod/ Tazobactam Sod 100 ml @ 200 mls/hr Q8 IVPB Last administered on 07/10/18at 05:04; Admin Dose 200 MLS/HR; Start 07/07/18 at 22:00 Propranolol HCl (Inderal) 10 mg BID PO Last administered on 07/10/18at 08:54; Admin Dose 10 MG; Start 07/07/18 at 21:00 Lactulose (Enulose) 20 gm Q12 PO Last administered on 07/10/18at 08:54; Admin Dose 20 GM; Start 07/07/18 at 21:00 Folic Acid (Folic Acid) 1 mg DAILY PO Last administered on 07/10/18at 08:53; Admin Dose 1 MG; Start 07/08/18 at 12:00 Insulin Glargine (Lantus) 23 units DAILY@0800 SC Last administered on 07/10/18at 07:46; Admin Dose 23 UNITS; Start 07/09/18 at 08:00 Metformin HCl (Glucophage) 250 mg BID WITH MEALS PO Last administered on 07/10/18at 07:42; Admin Dose 250 MG; Start 07/09/18 at 08:00 Spironolactone (Aldactone) 25 mg DAILY PO Last administered on 07/10/18at 08:53; Admin Dose 25 MG; Start 07/09/18 at 10:00 Furosemide (Lasix) 20 mg DAILY PO Last administered on 07/10/18at 08:53; Admin Dose 20 MG; Start 07/10/18 at 09:00 Insulin Aspart (Novolog Insulin Pen) 4 unit WITH MEALS SC Last administered on 07/10/18at 11:41; Admin Dose 4 UNIT; Start 07/09/18 at 18:00 Dextrose/Sodium Chloride 1,000 ml @ 80 mls/hr [id number] IV Last administered on 07/09/18at 22:35; Admin Dose 40 MLS/HR; Start 07/09/18 at 22:30 MAGALY SULTANA Jul 10, 2018 11:53
[2018-07-10] MEDS: DEXTROSE 5%-0.45% NACL 1,000 ML IV SCH (12:45)
[2018-07-10] MEDS: PHYTONADIONE 10 MG/ML INJ SC SCH (14:14)
--- NOTE | 2018-07-10 15:57 | PN ---
Date/Time of Note Date/Time of Note DATE: 07/10/18 TIME: 15:40 Assessment/Plan VTE Prophylaxis Risk score (from Ns)>0 risk: 5 SCD applied (from Ns): Yes Pharmacological prophylaxis: NA/contraindicated Pharm contraindication: blood coag disorder, liver dx, thrombocytopenia Lines/Catheters [facility]from [facility] PICC Line Central line still needed: Yes Urinary Cath still in place: Yes Reason Cath still needed: other (indicate) (will d/c ) Assessment/Plan Assessment/Plan A 52-year-old male known alcoholic with cirrhosis and hx of poorly controlled DM who presents with abdominal pain, nausea and vomiting, who is managed as follows: 1. Recurrent diabetic ketoacidosis.: resolved 2. Diabetes type 2 with hemoglobin A1c of 11.3. -improved control 3. Pancreatitis, ?alcoholic vs gallstones -Imaging shows gallstones but MRCP non conclusive for biliary dilation 2/2 moderate ascites -LFTs improving however -lipase trending down -advance diet? 4. Chronic alcoholic liver cirrhosis with new ascites on MRI -with Pancytopenia, portal HTN, gastrosplenic varices and coagulopathy -paracentesis ordered per GI -continue low dose propranolol 5. Cholelithiasis + ?cholecystitis -day 4 on zosyn, f/u post paracentesis eval and imaging -continue abx for now 6. Encephalopathy with severe debility: improving -This is likely combination of toxic metabolic from DKA as well as hepatic encephalopathy -patient improving, ammonia levels still high, continue lactulose and titrate as indicated -resume rifaximin at discharge Dispo: -paracentesis ordered -planned for FFP, VitK to correct coagulopathy prior to paracentesis -continue to trend labs -continue supportive care Result Diagram: 07/10/18 0403 07/10/18 0403 Results 24hrs Laboratory Tests Test 07/09/18 17:16 07/09/18 17:33 07/09/18 17:47 07/09/18 17:48 Bedside Glucose 56 L 174 136 Glucose Level 113 Test 07/09/18 20:19 07/09/18 20:55 07/10/18 01:44 07/10/18 02:13 Bedside Glucose 59 L 95 57 L 146 Test 07/10/18 04:02 07/10/18 04:03 07/10/18 07:40 07/10/18 11:36 Prothrombin Time 26.0 #H Prothrombin Time 2.0 Ratio INR International 2.37 Normalized Ratio Activated 45.5 H Partial Thromboplast Time White Blood Count 3.9 L Red Blood Count 2.88 L Hemoglobin 9.8 L Hematocrit 29.2 L Mean Corpuscular 101.4 H Volume Mean Corpuscular 34.0 H Hemoglobin Mean Corpuscular 33.6 Hemoglobin Concent Red Cell 14.8 H Distribution Width Platelet Count 42 L Mean Platelet Volume 9.9 Immature 2.300 H Granulocytes % Neutrophils % 53.9 Lymphocytes % 26.3 Monocytes % 13.1 H Eosinophils % 3.6 Basophils % 0.8 Nucleated Red Blood 0.0 Cells % Immature 0.090 H Granulocytes # Neutrophils # 2.1 Lymphocytes # 1.0 Monocytes # 0.5 Eosinophils # 0.1 Basophils # 0.0 Nucleated Red Blood 0.0 Cells # Sodium Level 138 Potassium Level 3.5 Chloride Level 113 H Carbon Dioxide Level 22 Anion Gap 3 L Blood Urea Nitrogen 10 Creatinine 0.54 L Est Glomerular > 60 Filtrat Rate mL/min Glucose Level 105 Calcium Level 7.6 L Magnesium Level 1.7 Total Bilirubin 1.9 H Direct Bilirubin 0.00 Indirect Bilirubin 1.9 H Aspartate Amino 96 H Transf (AST/SGOT) Alanine 64 Aminotransferase (AL T/SGPT) Alkaline Phosphatase 103 Ammonia 60 H Total Protein 4.7 L Albumin 1.7 L Globulin 3.00 Albumin/Globulin 0.56 Ratio Amylase Level 160 H Lipase 441 H Bedside Glucose 107 139 Subjective 24 Hr Interval Summary Free Text/Dictation looks much better than the last time I saw him 2 days ago, communicative, asking for more food Exam/Review of Systems Vital Signs Vitals Vital Signs Date Temp Pulse Resp B/P (MAP) Pulse Ox O2 O2 Flow FiO2 Time Delivery Rate 07/10/18 98.2 62 18 90/51 (64) 94 15:32 07/09/18 Room Air 11:32 Intake and Output 07/09/18 07/09/18 07/10/18 1414:59 22:59 06:59 IntakeIntake Total 300 ml 500 ml 40 ml OutputOutput Total 900 ml 1000 ml 2500 ml BalanceBalance -600 ml -500 ml -2460 ml Exam Constitutional: alert, oriented, emanciated (chronic) Head: atraumatic, normocephalic, mild icterus Neck: non-tender, supple Respiratory: clear to auscultation, diminished Cardiovascular: regular rate and rhythm Gastrointestinal: S/ NT / +BS Extremities: trace pedal edema . Medications Medications Current Medications Lorazepam (Ativan) 1 mg Q6H PRN IV anxiety; Start 07/04/18 at 12:00 IV Flush (NS 10 ml) 10 ml PRN PRN IV FLUSH LINE Last administered on 07/04/18 13:18; Admin Dose 10 ML; Start 07/04/18 at 12:00 Alteplase, Recombinant (Cathflo (Activase)) 2 mg MAY REPEAT X1 PRN CATHETER IF CATHETER REMAINS OCCULUDED; Start 07/04/18 at 18:30 Pantoprazole (Protonix Iv) 40 mg DAILY@06 IV Last administered on 07/10/18 05:04; Admin Dose 40 MG; Start 07/05/18 at 06:00 Diagnostic Test (Pha) (Accu-Chek) 1 ea 02 XX Last administered on 07/10/18at 01:49; Admin Dose 1 EA; Start 07/07/18 at 02:00 Insulin Aspart (Novolog Insulin Pen) NOVOLOG *MILD* ALGORITHM WITH MEALS BEDTIME SC Last administered on 07/09/18 11:44; Admin Dose 1 UNIT; Start 07/06/18 at 17:35 Multivitamins 10 ml/Folic Acid 1 mg/Sodium Chloride 1,010.2 ml @ 80 mls/hr D AILY@09 IVPB Last administered on 07/10/18 08:52; Admin Dose 80 MLS/HR; Start 07/08/18 at 09:00 Morphine Sulfate (morphine) 6 mg Q4H PRN PO SEVERE PAIN LEVEL 7-10 Last administered on 07/09/18 11:52; Admin Dose 6 MG; Start 07/07/18 at 16:30 Miscellaneous Information (* Miscellaneous Pharmacy Order) THIAMINE IV FOR USE IN BANANA BAG IS CURRENTLY ... DAILY@0900 XX Last administered on 07/09/18 08:04; Admin Dose 1 EA; Start 07/08/18 at 09:00 Diagnostic Test (Pha) (Accu-Chek) 1 ea AC MEALS AND BEDTIME XX Last administered on 07/10/18 11:37; Admin Dose 1 EA; Start 07/07/18 at 21:00 Miscellaneous Information 1 ea NOTE XX ; Start 07/07/18 at 19:00 Glucose (Glutose) 15 gm Q15M PRN PO DECREASED GLUCOSE; Start 07/07/18 at 19:00 Glucose (Glutose) 22.5 gm Q15M PRN PO DECREASED GLUCOSE; Start 07/07/18 at 19:00 Dextrose (D50w Syringe) 25 ml Q15M PRN IV DECREASED GLUCOSE Last administered o n 07/10/18at 01:50; Admin Dose 25 ML; Start 07/07/18 at 19:00 Dextrose (D50w Syringe) 50 ml Q15M PRN IV DECREASED GLUCOSE; Start 07/07/18 at 19:00 Glucagon (Glucagen) 1 mg Q15M PRN IM DECREASED GLUCOSE; Start 07/07/18 at 19:00 Glucose (Glutose) 15 gm Q15M PRN BUCCAL DECREASED GLUCOSE; Start 07/07/18 at 19:00 Piperacillin Sod/ Tazobactam Sod 100 ml @ 200 mls/hr Q8 IVPB Last administered on 07/10/18at 14:14; Admin Dose 200 MLS/HR; Start 07/07/18 at 22:00 Propranolol HCl (Inderal) 10 mg BID PO Last administered on 07/10/18at 08:54; Admin Dose 10 MG; Start 07/07/18 at 21:00 Folic Acid (Folic Acid) 1 mg DAILY PO Last administered on 07/10/18at 08:53; Admin Dose 1 MG; Start 07/08/18 at 12:00 Insulin Glargine (Lantus) 23 units DAILY@0800 SC Last administered on 07/10/18at 07:46; Admin Dose 23 UNITS; Start 07/09/18 at 08:00 Metformin HCl (Glucophage) 250 mg BID WITH MEALS PO Last administered on 07/10/18at 07:42; Admin Dose 250 MG; Start 07/09/18 at 08:00 Spironolactone (Aldactone) 25 mg DAILY PO Last administered on 07/10/18at 08:53; Admin Dose 25 MG; Start 07/09/18 at 10:00 Furosemide (Lasix) 20 mg DAILY PO Last administered on 07/10/18at 08:53; Admin Dose 20 MG; Start 07/10/18 at 09:00 Insulin Aspart (Novolog Insulin Pen) 4 unit WITH MEALS SC Last administered on 07/10/18at 11:41; Admin Dose 4 UNIT; Start 07/09/18 at 18:00 Dextrose/Sodium Chloride 1,000 ml @ 80 mls/hr [id number] IV Last administered on 07/09/18at 22:35; Admin Dose 40 MLS/HR; Start 07/09/18 at 22:30 Lactulose (Enulose) 20 gm Q8 PO Last administered on 07/10/18at 14:14; Admin Dose 20 GM; Start 07/10/18 at 14:00 Phytonadione (Vitamin K) 10 mg DAILY SC Last administered on 07/10/18at 14:14; Admin Dose 10 MG; Start 07/10/18 at 13:00; Stop 07/11/18 at 10:00 Imaging Imaging PROCEDURE: MRI Abdomen without contrast CLINICAL INDICATION: Rule out choledocholithiasis TECHNIQUE: Multiplanar multisequence magnetic resonance imaging examination of the abdomen was performed without intravenous gadolinium contrast according to liver with MRCP protocol. COMPARISON: CT of the abdomen and pelvis dated 07/04/2018 and MRI of the abdomen dated 05/30/2018 FINDINGS: The liver is shrunken with nodular surface representing hepatic cirrhosis. Moderate volume ascites throughout the abdomen and respiratory motion artifact markedly degrade this examination. The gallbladder is not visualized, however, the visualized gallbladder demonstrates wall thickening and pericholecystic edema (series 5 image 37). A gallstone is identified in the dependent portion of the gallbladder (series 4 image 35). The visualized common bile duct measures 6 mm, nondilated. Evaluation for choledocholithiasis is not feasible due to significant respiratory motion. There is suggestion of mild central intrahepatic biliary ductal dilatation. The pancreas and bilateral adrenal glands are not visualized due to respiratory motion. The spleen is enlarged. The kidneys are of normal size without hydronephrosis. Chronic-appearing mild compression deformities of T12 and L1 with minimal anteri or vertebral body height loss are noted. IMPRESSION: 1. Shrunken and nodular liver representing hepatic cirrhosis. 2. Moderate volume ascites throughout the abdomen with significant respiratory motion artifact markedly degrades the examination. 3. Wall thickening and pericholecystic edema involving the visualized gallbladder with a gallstone in the dependent portion. Acute cholecystitis can not be ruled out, although presence of liver disease and ascites could cause gallbladder wall thickening and pericholecystic edema. 4. Suggestion of mild central intrahepatic biliary ductal dilatation. The visualized common bile duct measures 6 mm, nondilated, however, evaluation for choledocholithiasis is not feasible on this examination due to respiratory motion artifact. 5. Moderate volume ascites. RPTAT: HRF Physician Danna Date Time Electronically viewed and signed by Mohit Forbes Physician on 07/08/2018 15:38 RF/ CC: MANA TRENT BOLATITO M. Jul 10, 2018 15:51
[2018-07-11] VITALS (12 sets, daily range): BP systolic 94–121; BP diastolic 58–71; PULSE 58–75; RESP 16–20
[2018-07-11] MEDS: PANTOPRAZOLE (EC) 40 MG TAB PO SCH (05:30)
[2018-07-11] MEDS: LACTULOSE 30ML CUP PO SCH ×3 (05:31→21:19)
[2018-07-11] MEDS: PIPER-TAZO 3.375 GM IV (PMX) 100 ML IVPB SCH ×3 (05:31→21:19)
--- NOTE | 2018-07-11 06:34 | NUR ---
EOSS: Patient received 2 units of FFP in preparation for thoracentesis. No s/s of blood transfusion reaction. Patient remains afebrile. Blood glucose remains WNL. No fall or injury noted or reported. No c/o pain or discomfort. Kept NPO after midnight.
[2018-07-11] MEDS ORDERED: POTASSIUM CHLORIDE (SR) 20 MEQ TAB PO STA (06:55)
[2018-07-11] MEDS: ACCU-CHEK XX SCH ×4 (07:22→21:19)
[2018-07-11] MEDS: metFORMIN 500 MG TAB PO SCH ×2 (07:22→17:21)
[2018-07-11] MEDS: INSULIN ASPART [NOVOLOG] 3 ML PEN SC SCH ×7 (07:23→21:23)
[2018-07-11] MEDS: INSULIN GLARGINE [LANTus] (100 UNITS/ML) SYG SC SCH (08:00)
[2018-07-11] MEDS ORDERED: MAGNESIUM SULFATE 3 GM in DEXTROSE 5% 100 ML IVPB ONE (08:00)
[2018-07-11] MEDS: THIAMINE IV FOR USE IN BANANA BAG IS CURRENTLY NOT AVAILABLE FROM MANUFACTURER. XX SCH (09:00)
[2018-07-11] MEDS: SPIRONOLACTONE 25 MG TAB PO SCH (09:00)
[2018-07-11] MEDS: FOLIC ACID 1 MG TAB PO SCH (09:00)
[2018-07-11] MEDS: PROPRANOLOL 10 MG TAB PO SCH ×2 (09:00→21:18)
[2018-07-11] MEDS ORDERED: INSULIN GLARGINE [LANTus] (100 UNITS/ML) SYG SC SCH (09:00)
[2018-07-11] MEDS: PHYTONADIONE 10 MG/ML INJ SC SCH (09:06)
[2018-07-11] MEDS: MULTIVITAMINS 10 ML, FOLIC ACID 1 MG in SOD CHLORIDE 0.9% 1,000 ML IVPB SCH (09:10)
--- NOTE | 2018-07-11 10:51 | NUR ---
CM NOTE DISCHARGE PLAN RECEIVED ORDER TO [facility] FOR SNF PLACEMENT ORDER FAXED TO [facility] AND ALSO THIS CM SENT INQUIRY TO [facility], [place], [place] WILL CONTINUE TO FOLLOW UP. GARY ESPOSITO RN,CM EXT [id number]
--- NOTE | 2018-07-11 11:23 | PN ---
Date/Time of Note Date/Time of Note DATE: 07/11/18 TIME: 11:20 Assessment/Plan VTE Prophylaxis Risk score (from Ns)>0 risk: 5 SCD applied (from Ns): Yes Pharmacological prophylaxis: NA/contraindicated Pharm contraindication: thrombocytopenia Lines/Catheters IV [facility] Type ([facility] PICC Line Central line still needed: Yes Urinary Cath still in place: Yes Reason Cath still needed: other (indicate) (will d/c) Assessment/Plan Result Diagram: 07/11/18 0508 07/11/18 0508 Results 24hrs Laboratory Tests Test 07/10/18 11:36 07/10/18 17:30 07/10/18 21:31 07/11/18 05:08 Bedside Glucose 139 243 H 83 White Blood Count 3.7 L Red Blood Count 2.60 L Hemoglobin 9.0 L Hematocrit 26.0 L Mean Corpuscular 100.0 Volume Mean Corpuscular 34.6 H Hemoglobin Mean Corpuscular 34.6 Hemoglobin Concen t Red Cell 14.8 H Distribution Width Platelet Count 51 #L Mean Platelet 10.2 Volume Immature 1.900 H Granulocytes % Neutrophils % 37.9 L Lymphocytes % 36.8 Monocytes % 19.1 H Eosinophils % 3.8 Basophils % 0.5 Nucleated Red 0.0 Blood Cells % Immature 0.070 H Granulocytes # Neutrophils # 1.4 L Lymphocytes # 1.4 Monocytes # 0.7 Eosinophils # 0.1 Basophils # 0.0 Nucleated Red 0.0 Blood Cells # Sodium Level 139 Potassium Level 2.9 *L Chloride Level 112 H Carbon Dioxide 24 Level Anion Gap 3 L Blood Urea 8 Nitrogen Creatinine 0.55 L Est Glomerular > 60 Filtrat Rate mL/min Glucose Level 53 #L Calcium Level 7.6 L Magnesium Level 1.5 L Total Bilirubin 1.8 H Direct Bilirubin 0.00 Indirect 1.8 H Bilirubin Aspartate Amino 82 H Transf (AST/SGOT) Alanine 61 Aminotransferase (ALT/SGPT) Alkaline 111 Phosphatase Total Protein 4.7 L Albumin 1.9 L Globulin 2.80 Albumin/Globulin 0.67 Ratio Amylase Level 84 Lipase 418 H Test 07/11/18 07:22 07/11/18 07:45 Bedside Glucose 74 Lab Scanned BLOOD TRANSFUSIO Report N Subjective 24 Hr Interval Summary Free Text/Dictation subjective: Doing much better, was able to ambulate with physical therapy and front wheel walker yesterday Objective: Constitutional: alert, oriented, emanciated (chronic) Head: atraumatic, normocephalic, mild icterus Neck: non-tender, supple Respiratory: clear to auscultation, diminished Cardiovascular: regular rate and rhythm Gastrointestinal: S/ NT / +BS Extremities: trace pedal edema . assessment and plan: A 52-year-old male known alcoholic with cirrhosis and hx of poorly controlled DM who presents with abdominal pain, nausea and vomiting, who is managed as follows: 1. Recurrent diabetic ketoacidosis.: resolved 2. Diabetes type 2 with hemoglobin A1c of 11.3. -improved control 3. Pancreatitis, ?alcoholic vs gallstones -Imaging shows gallstones but MRCP non conclusive for biliary dilation 2/2 moderate ascites -LFTs improving however -lipase trending down -advance diet? 4. Chronic alcoholic liver cirrhosis with new ascites on MRI -with Pancytopenia, portal HTN, gastrosplenic varices and coagulopathy -paracentesis ordered per GI -continue low dose propranolol 5. Cholelithiasis + ?cholecystitis -day 4 on zosyn, f/u post paracentesis eval and imaging -continue abx for now 6. Encephalopathy with severe debility: improving -This is likely combination of toxic metabolic from DKA as well as hepatic encephalopathy -patient improving, ammonia levels still high, continue lactulose and titrate as indicated -resume rifaximin at discharge Dispo: -Remain on clear liquids for now, continue to trend lipase levels -Possible paracentesis today -continue to trend labs, Replace electrolytes -Continue inpatient rehabilitation, case management working on outpatient longterm facility placement -continue supportive care Exam/Review of Systems Vital Signs Vitals Vital Signs Date Temp Pulse Resp B/P (MAP) Pulse Ox O2 O2 Flow FiO2 Time Delivery Rate 07/11/18 61 08:00 07/11/18 97.8 16 96/60 (72) 100 Room Air 07:11 Intake and Output 07/10/18 07/10/18 07/11/18 1515:00 23:00 07:00 IntakeIntake Total 120 ml 1040 ml 1807 ml OutputOutput Total 2301 ml 300 ml BalanceBalance 120 ml -1261 ml 1507 ml Medications Medications Current Medications Lorazepam (Ativan) 1 mg Q6H PRN IV anxiety; Start 07/04/18 at 12:00 IV Flush (NS 10 ml) 10 ml PRN PRN IV FLUSH LINE Last administered on 07/04/18at 13:18; Admin Dose 10 ML; Start 07/04/18 at 12:00 Alteplase, Recombinant (Cathflo (Activase)) 2 mg MAY REPEAT X1 PRN CATHETER IF CATHETER REMAINS OCCULUDED; Start 07/04/18 at 18:30 Diagnostic Test (Pha) (Accu-Chek) 1 ea 02 XX Last administered on 07/10/18at 01:49; Admin Dose 1 EA; Start 07/07/18 at 02:00 Insulin Aspart (Novolog Insulin Pen) NOVOLOG *MILD* ALGORITHM WITH MEALS BEDTIME SC Last administered on 07/10/18at 17:40; Admin Dose 3 UNIT; Start 07/06/18 at 17:35 Multivitamins 10 ml/Folic Acid 1 mg/Sodium Chloride 1,010.2 ml @ 80 mls/hr DAILY@09 IVPB Last administered on 07/11/18at 09:10; Admin Dose 80 MLS/HR; Start 07/08/18 at 09:00 Morphine Sulfate (morphine) 6 mg Q4H PRN PO SEVERE PAIN LEVEL 7-10 Last administered on 07/09/18at 11:52; Admin Dose 6 MG; Start 07/07/18 at 16:30 Miscellaneous Information (* Miscellaneous Pharmacy Order) THIAMINE IV FOR USE IN BANANA BAG IS CURRENTLY ... DAILY@0900 XX Last administered on 07/09/18 08:04; Admin Dose 1 EA; Start 07/08/18 at 09:00 Diagnostic Test (Pha) (Accu-Chek) 1 ea AC MEALS AND BEDTIME XX Last administered on 07/11/18 07:22; Admin Dose 1 EA; Start 07/07/18 at 21:00 Miscellaneous Information 1 ea NOTE XX ; Start 07/07/18 at 19:00 Glucose (Glutose) 15 gm Q15M PRN PO DECREASED GLUCOSE; Start 07/07/18 at 19:00 Glucose (Glutose) 22.5 gm Q15M PRN PO DECREASED GLUCOSE; Start 07/07/18 at 19:00 Dextrose (D50w Syringe) 25 ml Q15M PRN IV DECREASED GLUCOSE Last administered on 07/10/18at 01:50; Admin Dose 25 ML; Start 07/07/18 at 19:00 Dextrose (D50w Syringe) 50 ml Q15M PRN IV DECREASED GLUCOSE; Start 07/07/18 at 19:00 Glucagon (Glucagen) 1 mg Q15M PRN IM DECREASED GLUCOSE; Start 07/07/18 at 19:00 Glucose (Glutose) 15 gm Q15M PRN BUCCAL DECREASED GLUCOSE; Start 07/07/18 at 19:00 Piperacillin Sod/ Tazobactam Sod 100 ml @ 200 mls/hr Q8 IVPB Last administered on 07/11/18 05:31; Admin Dose 200 MLS/HR; Start 07/07/18 at 22:00 Propranolol HCl (Inderal) 10 mg BID PO Last administered on 07/10/18 08:54; Admin Dose 10 MG; Start 07/07/18 at 21:00 Folic Acid (Folic Acid) 1 mg DAILY PO Last administered on 07/10/18 08:53; Admin Dose 1 MG; Start 07/08/18 at 12:00 Spironolactone (Aldactone) 25 mg DAILY PO Last administered on 07/10/18 08:53; Admin Dose 25 MG; Start 07/09/18 at 10:00 Insulin Aspart (Novolog Insulin Pen) 4 unit WITH MEALS SC Last administered on 07/10/18at 17:37; Admin Dose 4 UNIT; Start 07/09/18 at 18:00 Lactulose (Enulose) 20 gm Q8 PO Last administered on 07/11/18 05:31; Admin Dose 20 GM; Start 07/10/18 at 14:00 Insulin Glargine (Lantus) 23 units DAILY@0800 SC ; Start 07/11/18 at 08:00 Metformin HCl (Glucophage) 250 mg BID WITH MEALS PO Last administered on 07/10/18at 17:32; Admin Dose 250 MG; Start 07/10/18 at 18:00 Pantoprazole (Protonix Tab) 40 mg DAILY@06 PO Last administered on 07/11/18at 05:30; Admin Dose 40 MG; Start 07/11/18 at 06:00 MANA TRENT Jul 11, 2018 11:23
--- NOTE | 2018-07-11 11:49 | NUR ---
Radiology nursing note: Attended pt in ultrasound for paracentesis. Time out at 1147, all team members in agreement. Opening v/s 99/62, HR 62, SpO2 95%. Procedure completed within 6 mins. Closing v/s 98/59, HR 61, SPO2 95%. Pt tolerated well. 12 cc removed, dianna colored fluid.
[2018-07-11] MEDS ORDERED: LORAZEPAM 2 MG INJ IV PRN (12:00)
[2018-07-11] MEDS ORDERED: LIDOCAINE 1% (MPF) 5 ML VIAL ONE (12:02)
--- NOTE | 2018-07-11 12:04 | NUR ---
ULTRASOUND GUIDED PARACENTESIS PERFORMED BY DR SHI,10CC FLUID ASPIRATED AND SENT TO LAB
--- NOTE | 2018-07-11 12:11 | NUR ---
CASE MANAGEMENT NOTE DOMINIC RAMIREZ HAS ACCEPTED AND WILL WORK AT OBTAINING AUTH FROM [facility], CM WILL CONTINUE TO FOLLOW UP.
--- NOTE | 2018-07-11 13:00 | NUR ---
at 12 noon patient came back from radiology by bed s/p us guided paracentecis,only 10 cc fluid removed.blood sugar checked and vs take.placed back on tele monitor.served his clear liquid diet.tolerated well.voiding freely in urinal.iv fluid resumed at 80 cc/hr.dressing to picc line in jim changed.
--- NOTE | 2018-07-11 14:12 | PN ---
Date/Time of Note Date/Time of Note DATE: 07/11/18 TIME: 14:06 Assessment/Plan VTE Prophylaxis Risk score (from Nsg)>0 risk: 7 SCD applied (from Nsg): Yes Pharmacological prophylaxis: other (scds) Lines/Catheters IV Catheter Type (from Nrsg): PICC Line Central line still needed: Yes (meds) Urinary Cath still in place: Yes Reason Cath still needed: other (indicate) (monitor labs) Assessment/Plan Hospital Course Summary Assessment and Plan: Assessment: Pancreatitis 2/2 to ETOh vs gallstone Chronic alcoholic liver cirrhosis- wih ascites- s/p paracentesis 07/11/18 -Pancytopenia -Portal venous hypertension- propranolol -EV grade 0-1- on propranolol Borderline splenomegaly without focal splenic lesion Elevated LFTs with indirect hyperbilirubinemia - improving Wall thickening and pericholecystic edema involving the visualized gallbladder with a gallstone -poss 2/2 liver disease Diabetes type 2 Encephalopathy - improving Diabetic ketoacidosis - resolved Hypocalcemia Plan: Monitor labs Continue current regimen No c/o pain to upper abd- pt does note bilateral rib pain s/p fall at home? Plan to advance diet to soft diabetic diet- f/u with Speech therapy Patient seen in collaboration with Dr. Raygoza Subjective: Course reviewed with nursing staff Patient interviewed and examined All labs, imaging and other results reviewed Pt feels better today- more alert oriented x3 able to make needs known only c/o bilateral rib pain - denies pain to epigastric or LUQ area even with deep palpation Lipase/amylase trending down will advance diet. Will have pt re-evaluated by ST therapy now more alert. PHYSICAL EXAMINATION: GENERAL: Alert & oriented to name confused SKIN: No lesions CHEST: Inspection within normal limits. CARDIOVASCULAR: Heart: Regular rate and rhythm RESPIRATORY: Lungs clear to auscultation GASTROINTESTINAL AND LIVER: Abdomen: Soft, bilateral rib pain, non-distended, no organomegaly, no guarding, no rebound tenderness, normoactive bowel sounds. Rectal: Deferred Result Diagram: 07/11/18 0508 07/11/18 0508 Results 24hrs Laboratory Tests Test 07/10/18 17:30 07/10/18 21:31 07/11/18 05:08 07/11/18 07:22 Bedside Glucose 243 H 83 74 White Blood 3.7 L Count Red Blood Count 2.60 L Hemoglobin 9.0 L Hematocrit 26.0 L Mean Corpuscular 100.0 Volume Mean Corpuscular 34.6 H Hemoglobin Mean Corpuscular 34.6 Hemoglobin Arlene nt Red Cell 14.8 H Distribution Width Platelet Count 51 #L Mean Platelet 10.2 Volume Immature 1.900 H Granulocytes % Neutrophils % 37.9 L Lymphocytes % 36.8 Monocytes % 19.1 H Eosinophils % 3.8 Basophils % 0.5 Nucleated Red 0.0 Blood Cells % Immature 0.070 H Granulocytes # Neutrophils # 1.4 L Lymphocytes # 1.4 Monocytes # 0.7 Eosinophils # 0.1 Basophils # 0.0 Nucleated Red 0.0 Blood Cells # Sodium Level 139 Potassium Level 2.9 *L Chloride Level 112 H Carbon Dioxide 24 Level Anion Gap 3 L Blood Urea 8 Nitrogen Creatinine 0.55 L Est Glomerular > 60 Filtrat Rate mL/min Glucose Level 53 #L Calcium Level 7.6 L Magnesium Level 1.5 L Total Bilirubin 1.8 H Direct Bilirubin 0.00 Indirect 1.8 H Bilirubin Aspartate Amino 82 H Transf (AST/SGOT ) Alanine 61 Aminotransferase (ALT/SGPT) Alkaline 111 Phosphatase Total Protein 4.7 L Albumin 1.9 L Globulin 2.80 Albumin/Globulin 0.67 Ratio Amylase Level 84 Lipase 418 H Test 07/11/18 07:45 07/11/18 11:50 07/11/18 12:09 Lab Scanned BLOOD TRANSFUSI Report ON Body Fluid Type PARACENTHESIS Body Fluid 5.0 Volume Body Fluid Color YELLOW Body Fluid CLOUDY Appearance Body Fluid WBC 22 Body Fluid RBC 8000 (Auto) Body Fluid 36.3 Polynuclear WBCs (%) Body Fluid 63.7 Mononuclear Cells % Auto Bedside Glucose 121 Exam/Review of Systems Vital Signs Vitals Vital Signs Date Temp Pulse Resp B/P (MAP) Pulse Ox O2 O2 Flow FiO2 Time Delivery Rate 07/11/18 62 12:00 07/11/18 97.8 16 96/60 (72) 100 Room Air 07:11 Intake and Output 07/10/18 07/10/18 07/11/18 1515:00 23:00 07:00 IntakeIntake Total 120 ml 1040 ml 1807 ml OutputOutput Total 2301 ml 300 ml BalanceBalance 120 ml -1261 ml 1507 ml Medications Medications Current Medications IV Flush (NS 10 ml) 10 ml PRN PRN IV FLUSH LINE Last administered on 07/04/18at 13:18; Admin Dose 10 ML; Start 07/04/18 at 12:00 Alteplase, Recombinant (Cathflo (Activase)) 2 mg MAY REPEAT X1 PRN CATHETER IF CATHETER REMAINS OCCULUDED; Start 07/04/18 at 18:30 Diagnostic Test (Pha) (Accu-Chek) 1 ea 02 XX Last administered on 07/10/18at 01:49; Admin Dose 1 EA; Start 07/07/18 at 02:00 Insulin Aspart (Novolog Insulin Pen) NOVOLOG *MILD* ALGORITHM WITH MEALS BEDTIME SC Last administered on 07/10/18at 17:40; Admin Dose 3 UNIT; Start 07/06/18 at 17:35 Multivitamins 10 ml/Folic Acid 1 mg/Sodium Chloride 1,010.2 ml @ 80 mls/hr DAILY@09 IVPB Last administered on 07/11/18at 09:10; Admin Dose 80 MLS/HR; Start 07/08/18 at 09:00 Morphine Sulfate (morphine) 6 mg Q4H PRN PO SEVERE PAIN LEVEL 7-10 Last administered on 07/09/18at 11:52; Admin Dose 6 MG; Start 07/07/18 at 16:30 Miscellaneous Information (* Miscellaneous Pharmacy Order) THIAMINE IV FOR USE IN BANANA BAG IS CURRENTLY ... DAILY@0900 XX Last administered on 07/09/18at 08:04; Admin Dose 1 EA; Start 07/08/18 at 09:00 Diagnostic Test (Pha) (Accu-Chek) 1 ea AC MEALS AND BEDTIME XX Last administered on 07/11/18at 12:10; Admin Dose 1 EA; Start 07/07/18 at 21:00 Miscellaneous Information 1 ea NOTE XX ; Start 07/07/18 at 19:00 Glucose (Glutose) 15 gm Q15M PRN PO DECREASED GLUCOSE; Start 07/07/18 at 19:00 Glucose (Glutose) 22.5 gm Q15M PRN PO DECREASED GLUCOSE; Start 07/07/18 at 19:00 Dextrose (D50w Syringe) 25 ml Q15M PRN IV DECREASED GLUCOSE Last administered on 07/10/18at 01:50; Admin Dose 25 ML; Start 07/07/18 at 19:00 Dextrose (D50w Syringe) 50 ml Q15M PRN IV DECREASED GLUCOSE; Start 07/07/18 at 19:00 Glucagon (Glucagen) 1 mg Q15M PRN IM DECREASED GLUCOSE; Start 07/07/18 at 19:00 Glucose (Glutose) 15 gm Q15M PRN BUCCAL DECREASED GLUCOSE; Start 07/07/18 at 19:00 Piperacillin Sod/ Tazobactam Sod 100 ml @ 200 mls/hr Q8 IVPB Last administered on 07/11/18at 05:31; Admin Dose 200 MLS/HR; Start 07/07/18 at 22:00 Propranolol HCl (Inderal) 10 mg BID PO Last administered on 07/10/18 08:54; Admin Dose 10 MG; Start 07/07/18 at 21:00 Folic Acid (Folic Acid) 1 mg DAILY PO Last administered on 07/10/18at 08:53; Admin Dose 1 MG; Start 07/08/18 at 12:00 Spironolactone (Aldactone) 25 mg DAILY PO Last administered on 07/10/18at 08:53; Admin Dose 25 MG; Start 07/09/18 at 10:00 Insulin Aspart (Novolog Insulin Pen) 4 unit WITH MEALS SC Last administered on 07/11/18at 12:15; Admin Dose 4 UNIT; Start 07/09/18 at 18:00 Lactulose (Enulose) 20 gm Q8 PO Last administered on 07/11/18at 05:31; Admin Dose 20 GM; Start 07/10/18 at 14:00 Insulin Glargine (Lantus) 23 units DAILY@0800 SC ; Start 07/11/18 at 08:00 Metformin HCl (Glucophage) 250 mg BID WITH MEALS PO Last administered on 07/10/18at 17:32; Admin Dose 250 MG; Start 07/10/18 at 18:00 Pantoprazole (Protonix Tab) 40 mg DAILY@06 PO Last administered on 07/11/18at 05:30; Admin Dose 40 MG; Start 07/11/18 at 06:00 Lorazepam (Ativan) 0.5 mg Q6H PRN IV anxiety; Start 07/11/18 at 12:00 MAGALY SULTANA Jul 11, 2018 14:12
--- NOTE | 2018-07-11 14:25 | NUR ---
PT NOTE [facility] Patient: Rishi Leiva : 1965 Age/Sex: 52/M Unit#: [id number] [facility] User: Alyssa Bello PTA Date: 07/11/18 14:25 Type: PT Technical Record Therapy day number 5 Subjective Current complaint of pain Pain Scale NUMERIC Pain Intensity 6 (0-10) Patient Stated Goal for Pain Relief 0 (0-10) Pain Level Comment R flank Supine to Sit Stand by Assist Transfer Sit to Stand Ability Stand by Assist Bed Mobility Sit to Supine Stand by Assist Patient uses wheelchair Not Applicable Gait Training Start Time 14:01 Gait Assist Levels Contact Guard Assist Assistive Devices Front Wheel Walker Ambulation Distance 250 feet Additional Gait Comments steady pace, reciprocal pattern, forward posture Gait Training End Time 14:25 Total Gait Training Treatment Time 24 min (8-127) Weight Bearing Assessment Label Bilat Lower Extremity Weight Bearing Status Weight Bearing as Meggan Static Sitting Balance Good Dynamic Sitting Balance Fair plus Standing Static Balance Fair plus Dynamic Standing Balance Fair Additional Balance Assessments Comments FWW Safety Judgement Fair Activity Tolerance Good Equipment Present A pump IV pump Post Treatment Pain Intensity 6 0-10 Total Treament Time 24 min (8-127) Total Minutes 24 Total Units 2 PT Technical Record Comment S: Pt c/o 6/10 R flank pain after paracentesis. Agreeable to tx O: Received pt in semifowler w/ visitor present in room. See above for assist levels. Gait training x 250' and presented with steady pace, reciprocal pattern, and forward posture. VC/TC for posture awareness. Returned pt back to room/bed. Positioned pt to comfort in semifowler. Call light/phone within reach. Bed alarm on. Needs met. Informed RN of pt status and PT activities A: Good tolerance to tx. Improved gait distance. SBA/CGA throughout tx P: Continue w/ POC and progress as tolerated
[2018-07-12] VITALS (8 sets, daily range): BP systolic 101–113; BP diastolic 56–73; PULSE 68–77; RESP 16–19
[2018-07-12] MEDS: ACCU-CHEK XX SCH ×5 (02:06→20:13)
[2018-07-12] MEDS ORDERED: INSULIN ASPART [NOVOLOG] 3 ML PEN SC ONE (03:00)
[2018-07-12] MEDS: PIPER-TAZO 3.375 GM IV (PMX) 100 ML IVPB SCH ×3 (05:45→22:12)
[2018-07-12] MEDS: PANTOPRAZOLE (EC) 40 MG TAB PO SCH (05:45)
[2018-07-12] MEDS: LACTULOSE 30ML CUP PO SCH ×3 (05:45→20:09)
--- NOTE | 2018-07-12 07:22 | NUR ---
EOSS: Pt. slept well. Blood glucose 335 was elevated at 0200. Given Novolog 4 units SC. Was started on soft diet as of yesterday. PLAN: For ST frias today. CM consult for SNF placement. Endorsed.
[2018-07-12] MEDS: INSULIN ASPART [NOVOLOG] 3 ML PEN SC SCH ×7 (07:55→20:13)
[2018-07-12] MEDS: FOLIC ACID 1 MG TAB PO SCH (08:07)
[2018-07-12] MEDS: metFORMIN 500 MG TAB PO SCH ×2 (08:07→17:23)
[2018-07-12] MEDS: SPIRONOLACTONE 25 MG TAB PO SCH (08:07)
[2018-07-12] MEDS: INSULIN GLARGINE [LANTus] (100 UNITS/ML) SYG SC SCH (08:08)
[2018-07-12] MEDS: PROPRANOLOL 10 MG TAB PO SCH ×2 (08:08→20:09)
[2018-07-12] MEDS: THIAMINE IV FOR USE IN BANANA BAG IS CURRENTLY NOT AVAILABLE FROM MANUFACTURER. XX SCH (08:09)
[2018-07-12] MEDS: MULTIVITAMINS 10 ML, FOLIC ACID 1 MG in SOD CHLORIDE 0.9% 1,000 ML IVPB SCH (08:12)
--- NOTE | 2018-07-12 10:16 | NUR ---
PT NOTE [facility] Patient: Rishi Leiva : 1965 Age/Sex: 52/M Unit#: [id number] [facility] Cam Mary PT Date: 07/12/18 09:45 Type: PT Technical Record Therapy day number 6 Subjective Current complaint of pain Pain Scale NUMERIC Pain Intensity 5 (0-10) Patient Stated Goal for Pain Relief 0 (0-10) Pain Level Comment rib pain Supine to Sit Minimum Assist Transfer Sit to Stand Ability Stand by Assist Bed Mobility Sit to Supine Minimum Assist Sitting Tolerance 10 min Additional Mobility Comments Db to reposition in bed Patient uses wheelchair Not Applicable Gait Training Start Time 09:46 Gait Assist Levels Stand by Assist Assistive Devices Front Wheel Walker Ambulation Distance 400 feet Additional Gait Comments forward flexed, fast saulo at times, verbal cues for FWW positioning Gait Training End Time 10:15 Total Gait Training Treatment Time 29 min (8-127) Weight Bearing Assessment Label Bilat Lower Extremity Weight Bearing Status Weight Bearing as Meggan Static Sitting Balance Good Dynamic Sitting Balance Good Standing Static Balance Fair plus Dynamic Standing Balance Fair Additional Balance Assessments Comments FWW Safety Judgement Fair Activity Tolerance Good Equipment Present A pump Post Treatment Pain Intensity 0 0-10 Total Treament Time 29 min (8-127) Total Minutes 29 Total Units 2 PT Technical Record Comment S: Pt reports he is feeling better today O: BENEDICT Boss cleared pt for PT session. Pt receievd semi-supine in bed, agreeable to PT session. Pt participated in interventions above, noted with gait fast saulo at times, forward flexed posture, frequent verbal cues to maintain appropriate distance/position of FWW. Pt returned to bed, all needs in reach, bed alarm activated, RN notified of pt's status A: Pt continues to demonstrate improving activity tolerance and gait distance, able to amb 400' with FWW this date, though requires some verbal cues for safety. P :Continue c PT POC
--- NOTE | 2018-07-12 10:35 | NUR ---
ST NOTE: pt seen for f/up now on soft diet;nctr per GI as lipase levels came down per RN; reassessed safety for thin; tolerating via cup; pt weak; cues to alt food/liquids but did well with soft items; st to follow;
--- NOTE | 2018-07-12 11:56 | PN ---
DATE: 07/12/2018 SUBJECTIVE: No new issues, patient has been advanced to a soft diet and seems to be tolerating it. Continues to get physical therapy in house. PHYSICAL EXAMINATION CONSTITUTIONAL: Alert, oriented, clinically emaciated. HEENT: Head atraumatic, normocephalic, positive icterus. Neck supple. CHEST: Diminished but clear breath sounds. CARDIOVASCULAR: Heart sounds S1 and S2 only without added sounds or murmurs. Good rate control on telemetry so far. ABDOMEN: Soft, nontender, positive bowel sounds. EXTREMITIES: Trace edema bilaterally in lower extremity. LABORATORY VALUES: The patient remains pancytopenic, but with stable indices. Chemistry: Serum glucose levels are high today, but patient got only half Lantus dose in yesterday. Ammonia level is up to 123 from 60 yesterday. Lipase level is also up to 679 from 418, but amylase level has stayed normal. There is no basic metabolic profile yet reported, and there is no mag levels yet. His coag profile is showing improvement in his INR from yesterday after FFP and vitamin K. Paracentesis was attempted and they were only able to get 10 mL of fluid, which was sent to the lab for testing. Only 22 white blood cells were noted not suggestive of infection, pancreatic levels are still pending on ascitic fluid. IMPRESSION: A 52-year-old male, known alcoholic with cirrhosis and a history of poorly controlled diabetes mellitus, who had presented with abdominal pain and vomiting, was managed in ICU for DKA, which is now resolved and is currently managed as follows: 1. Acute pancreatitis, alcoholic versus gallstones. 2. Unable to definitively figure out the source due to presence of moderate ascites on MRCP that was obstructing the imaging. However, attempted paracentesis was not successful for significant fluid removal, they were only able to get 10 mL. At this time, the patient is continued on intravenous Zosyn for concern for possible cholecystitis noted on MRI and is being managed for pancreatitis conservatively. However, her lipase level continues to climb, but LFTs have improved. Elevation in lipase could be secondary to the fact that we advanced the diet; however, will discuss with GI and consider repeat MRCP at this time. Actually will also try right upper quadrant ultrasound first to see if this may give us more information about possible biliary dilatation. 3. Diabetes type 2: hemoglobin A1c came back at 11.3. The control is fluctuating because of his comorbid pancreatitis. The patient's diet is not stable, and as such, insulin is being held and resumed randomly. Nurses have instructions to give her a Lantus dose while patient is n.p.o., but patient has a significant rebound hyperglycemia with a slight reduction in his insulin doses, continue to monitor and titrate as indicated. 4. Status post diabetic ketoacidosis. 5. Chronic alcoholic liver cirrhosis with pancytopenia, portal hypertension, esophageal varices and coagulopathy. The patient maintained on propranolol at a low dose due to the blood pressure. 6. Status post encephalopathy: Patient also has significant debility, which is improving with physical therapy. -- Encephalopathy seems to have significantly improved. 7. Ammonia levels; however, still mildly elevated, will increase lactulose frequency and plan to resume rifaximin at discharge. 8. Cholelithiasis with possible cholecystitis: Patient continues on Zosyn, will repeat ultrasound to assess, ? HIDA scan -- surgical consult. 9. Hypokalemia, status post repletion. 10. Hypomagnesemia, status post repletion. 11. Diet: Patient is currently on a soft diet, continue to monitor for pain. DISPOSITION: Transfer to med/surg, right upper quadrant ultrasound, continue in-house physical therapy. For prophylaxis, the patient is on PPI therapy, and cannot tolerate anticoagulation due to coagulopathy. Note the patient is also maintained on banana bag, which will be transitioned to oral supplement. Dictated By: MANA TRENT MD BA/NTS Conf#: [id number] DID#: [id number] CC: MANA TRENT MD;*EndCC* MTDD
--- NOTE | 2018-07-12 17:59 | PN ---
Date/Time of Note Date/Time of Note DATE: 07/12/18 TIME: 17:29 Assessment/Plan VTE Prophylaxis Risk score (from Nsg)>0 risk: 7 SCD applied (from Nsg): Yes Pharmacological prophylaxis: other (scds) Lines/Catheters IV Catheter Type (from Nrsg): PICC Line Central line still needed: Yes (meds) Urinary Cath still in place: No Assessment/Plan Hospital Course Summary Assessment and Plan: Assessment: ??Pancreatitis 2/2 to ETOH vs gallstone -Elevated Lipase- Pancreas unremarkable on Ct scan Chronic alcoholic liver cirrhosis- with ascites- s/p paracentesis 07/11/18 -Child-Atkinson Class C -MELD 43- last drink 2-3 months ago- unpon discharge pt to f/u as an out-pt will need to be evlauted for possible liver transplant- however usually requires sobriety for at east 6 months -Pancytopenia -Portal venous hypertension- propranolol -EV grade 0-1- on propranolol Borderline splenomegaly without focal splenic lesion Elevated LFTs with indirect hyperbilirubinemia - improving Wall thickening and pericholecystic edema involving the visualized gallbladder with a gallstone- Currently asymptomatic- -Poss 2/2 liver disease Diabetes type 2 Encephalopathy - improving Diabetic ketoacidosis - resolved Hypocalcemia Plan: Despite increase in lipase- pt with normal amylase- and no c/o of abd pain even with deep palpation- continue current diet Also noted increase in ammonia- however mentation continues to improve- lactulose has been increased Pt does note bilateral rib pain s/p fall at home? Give Meld score/Child-Atkinson score- pt high risk for surgical intervention- no c/o RUQ pain with deep palpation. Continue to monitor All imaging shows normal CBD- no recent liver us- shows The common bile duct measures 3 mm in maximal dimension. No plan for GI intervention at this time. Patient seen in collaboration with Dr. Raygoza/Giovanni Subjective: Course reviewed with nursing staff Patient interviewed and examined All labs, imaging and other results reviewed Mentation continues to improve- pt denies abd pain , complaint of bilateral rib pain Patient seen he has 2-3 bowel movements per day no complaints of melena hematochezia, nausea/vomiting Diet as is maintain close observation. PHYSICAL EXAMINATION: GENERAL: Alert & oriented to name confused SKIN: No lesions CHEST: Inspection within normal limits. CARDIOVASCULAR: Heart: Regular rate and rhythm RESPIRATORY: Lungs clear to auscultation GASTROINTESTINAL AND LIVER: Abdomen: Soft, bilateral rib pain, non-distended, no organomegaly, no guarding, no rebound tenderness, normoactive bowel sounds. Rectal: Deferred Result Diagram: 07/12/1852207/12/18522 Results 24hrs Laboratory Tests Test 07/11/18 21:18 07/12/18 01:58 07/12/18 05:23 07/12/18 07:53 Bedside Glucose 248 H 335 H 223 H White Blood Count 4.1 L Red Blood Count 2.62 L Hemoglobin 9.0 L Hematocrit 26.1 L Mean Corpuscular 99.6 Volume Mean Corpuscular 34.4 H Hemoglobin Mean Corpuscular 34.5 Hemoglobin Concent Red Cell 15.0 H Distribution Width Platelet Count 47 L Mean Platelet Volume 9.4 Immature 1.700 H Granulocytes % Neutrophils % 45.2 Lymphocytes % 32.6 Monocytes % 17.5 H Eosinophils % 2.5 Basophils % 0.5 Nucleated Red Blood 0.0 Cells % Immature 0.070 H Granulocytes # Neutrophils # 1.8 Lymphocytes # 1.3 Monocytes # 0.7 Eosinophils # 0.1 Basophils # 0.0 Nucleated Red Blood 0.0 Cells # Sodium Level 137 Potassium Level 3.6 Chloride Level 108 Carbon Dioxide Level 23 Anion Gap 6 Blood Urea Nitrogen 6 L Creatinine 0.54 L Est Glomerular > 60 Filtrat Rate mL/min Glucose Level 244 #H Calcium Level 7.4 L Magnesium Level 1.7 Ammonia 123 #H Amylase Level 97 Lipase 679 H Test 07/12/18 11:12 07/12/18 17:18 Bedside Glucose 138 125 Exam/Review of Systems Vital Signs Vitals Vital Signs Date Temp Pulse Resp B/P (MAP) Pulse Ox O2 O2 Flow FiO2 Time Delivery Rate 07/12/18 68 12:36 07/12/18 98.2 19 104/61 94 11:18 (75) 07/12/18 Room Air 03:45 Intake and Output 07/11/18 07/11/18 07/12/18 1515:00 23:00 07:00 IntakeIntake Total 120 ml 1030 ml 1370 ml OutputOutput Total 1000 ml 1100 ml BalanceBalance 120 ml 30 ml 270 ml Medications Medications Current Medications IV Flush (NS 10 ml) 10 ml PRN PRN IV FLUSH LINE Last administered on 07/04/18at 13:18; Admin Dose 10 ML; Start 07/04/18 at 12:00 Alteplase, Recombinant (Cathflo (Activase)) 2 mg MAY REPEAT X1 PRN CATHETER IF CATHETER REMAINS OCCULUDED; Start 07/04/18 at 18:30 Diagnostic Test (Pha) (Accu-Chek) 1 ea 02 XX Last administered on 07/12/18at 02:06; Admin Dose 1 EA; Start 07/07/18 at 02:00 Multivitamins 10 ml/Folic Acid 1 mg/Sodium Chloride 1,010.2 ml @ 80 mls/hr DAILY@09 IVPB Last administered on 07/12/18at 08:12; Admin Dose 80 MLS/HR; Start 07/08/18 at 09:00 Morphine Sulfate (morphine) 6 mg Q4H PRN PO SEVERE PAIN LEVEL 7-10 Last administered on 07/09/18at 11:52; Admin Dose 6 MG; Start 07/07/18 at 16:30 Miscellaneous Information (* Miscellaneous Pharmacy Order) THIAMINE IV FOR USE IN BANANA BAG IS CURRENTLY ... DAILY@0900 XX Last administered on 07/09/18at 08:04; Admin Dose 1 EA; Start 07/08/18 at 09:00 Diagnostic Test (Pha) (Accu-Chek) 1 ea AC MEALS AND BEDTIME XX Last administered on 07/12/18at 17:23; Admin Dose 1 EA; Start 07/07/18 at 21:00 Miscellaneous Information 1 ea NOTE XX ; Start 07/07/18 at 19:00 Glucose (Glutose) 15 gm Q15M PRN PO DECREASED GLUCOSE; Start 07/07/18 at 19:00 Glucose (Glutose) 22.5 gm Q15M PRN PO DECREASED GLUCOSE; Start 07/07/18 at 19 :00 Dextrose (D50w Syringe) 25 ml Q15M PRN IV DECREASED GLUCOSE Last administered on 07/10/18at 01:50; Admin Dose 25 ML; Start 07/07/18 at 19:00 Dextrose (D50w Syringe) 50 ml Q15M PRN IV DECREASED GLUCOSE; Start 07/07/18 at 19:00 Glucagon (Glucagen) 1 mg Q15M PRN IM DECREASED GLUCOSE; Start 07/07/18 at 19:00 Glucose (Glutose) 15 gm Q15M PRN BUCCAL DECREASED GLUCOSE; Start 07/07/18 at 19:00 Piperacillin Sod/ Tazobactam Sod 100 ml @ 200 mls/hr Q8 IVPB Last administered on 07/12/18 16:11; Admin Dose 200 MLS/HR; Start 07/07/18 at 22:00 Propranolol HCl (Inderal) 10 mg BID PO Last administered on 07/12/18 08:08; Admin Dose 10 MG; Start 07/07/18 at 21:00 Folic Acid (Folic Acid) 1 mg DAILY PO Last administered on 07/12/18 08:07; Admin Dose 1 MG; Start 07/08/18 at 12:00 Spironolactone (Aldactone) 25 mg DAILY PO Last administered on 07/12/18 08:07; Admin Dose 25 MG; Start 07/09/18 at 10:00 Insulin Glargine (Lantus) 23 units DAILY@0800 SC Last administered on 07/12/18 08:08; Admin Dose 23 UNITS; Start 07/11/18 at 08:00 Metformin HCl (Glucophage) 250 mg BID WITH MEALS PO Last administered on 07/12/18 08:07; Admin Dose 250 MG; Start 07/10/18 at 18:00 Pantoprazole (Protonix Tab) 40 mg DAILY@06 PO Last administered on 07/12/18 05:45; Admin Dose 40 MG; Start 07/11/18 at 06:00 Lorazepam (Ativan) 0.5 mg Q6H PRN IV anxiety; Start 07/11/18 at 12:00 Lactulose (Enulose) 20 gm Q6H PO Last administered on 07/12/18at 16:11; Admin Dose 20 GM; Start 07/12/18 at 14:00 Insulin Aspart (Novolog Insulin Pen) NOVOLOG *MODERATE* ALGORITHM WITH MEALS BEDTIME SC ; Start 07/12/18 at 12:00 Insulin Aspart (Novolog Insulin Pen) 5 unit WITH MEALS SC Last administered on 07/12/18 17:25; Admin Dose 5 UNIT; Start 07/12/18 at 12:00 MAGALY SULTANA Jul 12, 2018 17:39
--- NOTE | 2018-07-12 19:17 | NUR ---
EOSS Pt ao x 4 and stable at this time. Pt in no distress noted throughout the shift. Pt was updated regarding plan of care. All needs met and all questions answered. Pt worked with physical therapy and tolerated it. Pt was encouraged to reposition. Room kept clean and clutter free. Pt is now med surg status, charge nurse aware, pending bed placement. hospital monitor d/c'd. Hourly rounding provided. Will endorse to next shift accordingly.
[2018-07-13] VITALS: BP 116/71; PULSE 68; RESP 18
[2018-07-13] MEDS: LACTULOSE 30ML CUP PO SCH ×3 (01:52→14:14)
[2018-07-13] MEDS: ACCU-CHEK XX SCH ×3 (01:53→11:10)
[2018-07-13 04:00] VITALS: BP 109/68; PULSE 69; RESP 16
--- NOTE | 2018-07-13 05:51 | NUR ---
EOSS PATIENT A/0 X4, VITAL SIGNS STABLE, DENIES ANY PAIN.TAKING MEDICATION WELL AND TOLERATING DIET WELL. ALL NEEDS MET, WILL ENDORSE REPORT TO ONCOMING SHIFT.
[2018-07-13] MEDS: PIPER-TAZO 3.375 GM IV (PMX) 100 ML IVPB SCH ×2 (06:03→14:10)
[2018-07-13] MEDS: PANTOPRAZOLE (EC) 40 MG TAB PO SCH (06:03)
[2018-07-13 07:15] VITALS: BP 98/56; PULSE 69; RESP 19
[2018-07-13] MEDS: INSULIN GLARGINE [LANTus] (100 UNITS/ML) SYG SC SCH (07:57)
[2018-07-13] MEDS: INSULIN ASPART [NOVOLOG] 3 ML PEN SC SCH ×4 (07:57→13:08)
[2018-07-13] MEDS: PROPRANOLOL 10 MG TAB PO SCH (08:17)
[2018-07-13] MEDS: metFORMIN 500 MG TAB PO SCH (08:17)
[2018-07-13] MEDS: SPIRONOLACTONE 25 MG TAB PO SCH (08:17)
[2018-07-13] MEDS: FOLIC ACID 1 MG TAB PO SCH (08:17)
[2018-07-13] MEDS: THIAMINE IV FOR USE IN BANANA BAG IS CURRENTLY NOT AVAILABLE FROM MANUFACTURER. XX SCH (08:18)
[2018-07-13] MEDS: MULTIVITAMINS 10 ML, FOLIC ACID 1 MG in SOD CHLORIDE 0.9% 1,000 ML IVPB SCH (08:19)
--- NOTE | 2018-07-13 11:00 | NUR ---
RECEIVED PATIENT FROM [facility],PATIENT IS FULLY AWAKE,AA/ ORIENTED X4.ORIENTED TO ROOM,FULL ASSESSMENT DONE AND VS CHECKED
--- NOTE | 2018-07-13 12:39 | NUR ---
PT NOTE [facility] Patient: Rishi Leiva : 1965 Age/Sex: 52/M Unit#: [id number] Room/Bed: [facility]/B User: Cam Mary PT Date: 07/13/18 11:50 Type: PT Technical Record Therapy day number 7 Subjective Current complaint of pain Pain Scale NUMERIC Pain Intensity 5 (0-10) Patient Stated Goal for Pain Relief 0 (0-10) Pain Level Comment L flank pain Supine to Sit Modified Independent Transfer Sit to Stand Ability Supervised Bed Mobility Sit to Supine Modified Independent Bed Transfer Ability Supervised Chair Transfer Ability Supervised Sitting Tolerance 5 min Additional Mobility Comments requested assistance with BP Patient uses wheelchair Not Applicable Gait Training Start Time 11:55 Gait Assist Levels Supervised Assistive Devices Front Wheel Walker Ambulation Distance 400 feet Additional Gait Comments forward flexed, VC for postural correction, no instances of LOB Gait Training End Time 12:20 Total Gait Training Treatment Time 25 min (8-127) Weight Bearing Assessment Label Bilat Lower Extremity Weight Bearing Status Weight Bearing as Meggan Static Sitting Balance Good Dynamic Sitting Balance Good Standing Static Balance Good Dynamic Standing Balance Fair plus Additional Balance Assessments Comments FWW Safety Judgement Fair Activity Tolerance Good Equipment Present A pump Post Treatment Pain Intensity 0 0-10 Total Treament Time 25 min (8-127) Total Minutes 25 Total Units 2 PT Technical Record Comment S: Pt reported mild dizziness upon sitting EOB O: BENEDICT Kent cleared pt for PT session. Pt received supine in bed, agreeable to PT. Pt participated in interventions above, including amb of 400' with FWW, without instances of LOB. Pt returned to bed, all needs in reach, no signs of distress, bed alarm activated. A: Pt continues to demonstrate increasing independence with all mobility tasks and demonstrates fair+ to good standing balance with use of FWW Able to amb 400' with improved gait quality. Continues to require occasional cues for postural correction. P: Continue c PT POC; decrease frequency to 3x/wk with pt cleared to amb in halls with medical staff specialist using FWW.
[2018-07-13] MEDS ORDERED: METF-849 PO (13:06)
[2018-07-13] MEDS ORDERED: INSU100I33 SC (13:06)
[2018-07-13] MEDS ORDERED: NOVO3I SC (13:06)
[2018-07-13] MEDS ORDERED: PROP10TA6 PO (13:06)
[2018-07-13] MEDS ORDERED: MULT-761 PO (13:06)
[2018-07-13] MEDS ORDERED: METR-122 PO (13:06)
[2018-07-13] MEDS ORDERED: THIA100T10 PO (13:06)
[2018-07-13] MEDS ORDERED: CIPR500T4 PO (13:06)
[2018-07-13] MEDS ORDERED: SPIR25TA PO (13:06)
[2018-07-13] MEDS ORDERED: FOLI-49 PO (13:06)
[2018-07-13] MEDS ORDERED: LACT20SO2 PO (13:06)
--- NOTE | 2018-07-13 13:07 | PDOCDIS ---
Discharge Instructions CONDITION [id number] Patient Condition: [id number] Stable HOME CARE INSTRUCTIONS: [id number] Special Diet: [id number] Soft, 1800 ADA ACTIVITY: [id number] Activity Restrictions: Tocla9s Slowly Increase Activity Rest between Activity FOLLOW UP/APPOINTMENTS Follow-up Plan Patient needs continuous counseling to help with alcohol cessation, and he also needs close monitoring for his blood sugar control. . MANA TRENT Jul 13, 2018 13:07
--- NOTE | 2018-07-13 13:14 | DS ---
Date/Time of Note Date/Time of Note DATE: 07/13/18 TIME: 13:11 Discharge Summary Admission/Discharge Info Admit Date/Time Jul 04, 2018 at 08:52 Discharge Date/Time Discharge Diagnosis A 52-year-old male, known alcoholic with cirrhosis and a history of poorly co ntrolled diabetes mellitus, who had presented with abdominal pain and vomiting, was managed in ICU for DKA, which is now resolved and is currently managed as follows: 1. Acute pancreatitis, alcoholic versus gallstones: improved 2. Status post diabetic ketoacidosis. 3. Diabetes type 2: hemoglobin A1c came back at 11.3.: fair control at this time 4. Alcoholism 5. Chronic alcoholic liver cirrhosis with pancytopenia, portal hypertension, splenic and esophageal varices and coagulopathy. The patient maintained on propranolol at a low dose due to the blood pressure. 6. Status post encephalopathy: Patient also has significant debility, which is improving with physical therapy. -- Encephalopathy seems to have significantly improved. 7. Cholelithiasis : no cholecystitis on HIDA or USS . Patient Condition: Stable Consults GI : Gabriela Davila MD . Hospital Course 52-year-old male who had presented to the emergency room with complaints of lethargy and abdominal pain was managed for DKA with acute pancreatitis and encephalopathy. The patient of note is a known alcoholic with a history of chronic alcoholic liver cirrhosis as well as being a diabetic and has had multiple hospitalizations for DKA. He was admitted, GI consultation was obtained for concern for possible biliary duct obstruction after he was also found to have a gallstone in the setting of pancreatitis. Regarding his DKA he did well with insulin drip therapy and his gap resolved quite expediently, but he required continued workup for his comorbidities that necessitated for him to be n.p.o. on and off hence tight insulin control was not consistent throughout his hospitalization. However he was worked up with an MRCP that was nonconclusive due to reports of the presence of significant amount of ascites, but when a paracentesis was attempted, only 10 cc of fluid was able to be obtained. Since the MRCP was nonconclusive we did a HIDA scan that showed a contracted gallbladder but was not suggestive of a cholecystitis and we also did an abdominal ultrasound that showed no biliary ductal dilatation. The patient was maintained on antibiotics for cholecystitis throughout his hospitalization. At this time the patient is tolerating the soft diet, as there is no concern for cholecystitis requiring further workup, he stable to be discharged. Due to debility he is being discharged to a assisted facility for therapy after which the disposition will be dependent on the providers over at the [facility]. Patient was also optimized for his comorbidities which included pancytopenia from his cirrhosis and the other conditions listed above. For further information and clarification please review the patient's chart. . Home Meds Active Scripts Simethicone (Mi-Acid) 80 Mg Tab.chew, 160 MG PO Q6 PRN for bloating for 30 Days, #120 TAB.CHEW Prov:DYLAN REBOLLEDO MD 06/04/18 Pantoprazole* (Pantoprazole*) 40 Mg Tablet.dr, 40 MG PO AC BREAKFAST DINNER for 30 Days, #60 TAB 6 Refills Prov:DYLAN REBOLLEDO MD 06/04/18 Insulin Glargine,Hum.rec.anlog (Basaglar Kwikpen U-100) 100 Unit/1 Ml Insuln.pen, 30 UNIT SC QHS for 30 Days, #10 EA 6 Refills Prov:DYLAN REBOLLEDO MD 06/04/18 Lactulose* (Lactulose*) 20 Gm/30 Ml Solution, 30 GM PO Q6H for CONSTIPATION for 30 Days, #5 L 6 Refills Prov:DYLAN REBOLLEDO MD 06/04/18 Reported Medications Ibuprofen* (Ibuprofen*) 600 Mg Tablet, 600 MG PO Q6H PRN for PAIN, TAB 05/25/18 Sitagliptin* (Januvia*) 25 Mg Tablet, 25 MG PO DAILY, #30 TAB 05/25/18 Rifaximin* (Xifaxan*) 550 Mg Tablet, 550 MG PO BID, TAB 05/25/18 Follow-up Plan Patient needs continuous counseling to help with alcohol cessation, and he also needs close monitoring for his blood sugar control. . Primary Care Provider Not On Staff Doctor Time spent on discharge: > 30 minutes Pending Labs Laboratory Tests Test 07/12/18 17:18 07/12/18 19:44 07/13/18 04:56 07/13/18 07:51 Bedside 125 220 378 Glucose mg/dL (70-220) mg/dL (70-220) mg/dL (70-220) White Blood 3.7 Count 10^3/ul (4.8-1 0.8) Red Blood 2.64 Count 10^6/ul (4.70- 6.10) Hemoglobin 9.1 g/dl (14.0-18. 0) Hematocrit 26.1 % (42.0-52.0) Mean 98.9 Corpuscular fl (82.0-101.0 Volume ) Mean 34.5 Corpuscular pg (29.0-33.0) Hemoglobin Mean 34.9 Corpuscular g/dl (32.0-37. Hemoglobin Conc 0) ent Red Cell 14.8 Distribution % (11.5-14.5) Width Platelet Count 53 10^3/UL (140-4 15) Mean Platelet 10.2 Volume fl (7.4-10.4) Immature 0.800 Granulocytes % % (0.001-0.429 ) Neutrophils % 45.0 % (39.0-77.0) Lymphocytes % 38.2 % (15.0-51.0) Monocytes % 13.8 % (0.0-11.0) Eosinophils % 1.9 % (0.0-7.0) Basophils % 0.3 % (0.0-2.0) Nucleated Red 0.0 Blood Cells % /100WBC (0.0-0 .0) Immature 0.030 Granulocytes # 10^3/ul (0.0-0 .031) Neutrophils # 1.7 10^3/ul (1.6-7 .5) Lymphocytes # 1.4 10^3/ul (0.8-2 .9) Monocytes # 0.5 10^3/ul (0.3-0 .9) Eosinophils # 0.1 10^3/ul (0.0-0 .5) Basophils # 0.0 10^3/ul (0.0-0 .1) Nucleated Red 0.0 Blood Cells # 10^3/ul (0.0-0 .0) Sodium Level 138 mmol/L (135-14 4) Potassium 3.5 Level mmol/L (3.5-5. 1) Chloride Level 108 mmol/L (97-110 ) Carbon Dioxide 23 Level mmol/L (21-31) Anion Gap 7 (5-13) Blood Urea 7 mg/dl (7-20) Nitrogen Creatinine 0.53 mg/dl (0.61-1. 24) Est Glomerular > 60 Filtrat mL/min (>60) Rate mL/min Glucose Level 345 mg/dl (70-220) Calcium Level 7.6 mg/dl (8.4-10. 2) Total 1.3 Bilirubin mg/dl (0.2-1.3 ) Direct 0.00 Bilirubin mg/dl (0.00-0. 20) Indirect 1.3 Bilirubin mg/dl (0-1.1) Aspartate Amino 57 Transf (AST/SGO IU/L (15-46) T) Alanine 53 Aminotransferas IU/L (13-69) e (ALT/SGPT) Alkaline 196 Phosphatase IU/L (42-121) Total Protein 4.6 g/dl (6.1-8.1) Albumin 1.8 g/dl (3.3-4.9) Globulin 2.80 g/dl (1.3-3.2) Albumin/Globuli 0.64 n Ratio Amylase Level 78 U/L (11-123) Lipase 641 U/L (23-300) Test 07/13/18 12:50 Bedside 190 Glucose mg/dL (70-220) MANA TRENT Jul 13, 2018 13:14
[2018-07-13 14:37] VITALS: BP 124/67; RESP 18
--- NOTE | 2018-07-13 15:15 | NUR ---
CASE MANAGEMENT NOTE DISCHARGE UPDATE PT HAS DISCHARGE ORDER FOR SNF, [address] [facility] AT BEDSIDE AND PROVIDE HIM WITH THE DIRECTION AND PHONE NUMBER, PT STATES THAT HE WILL CONTACT HIS SISTER AND MAKE HER AWARE OF TRANSFER. BENEDICT FAITH MADE AWARE AUTH [id number] Addendum: 07/13/18 at 1524 by GERSON ESPOSITO RN RAIL CAR PAINTER/SANDBLASTER TIME 1630 AND TRIP NUMBER [phone] PER [facility] [phone] AND ROOM ASSIGNED [address] PER [facility] [phone] FOR REPORT. GARY ESPOSITO RN,[facility] EXT [id number]
--- NOTE | 2018-07-13 15:50 | NUR ---
REPORT GIVEN TO MATHIEU AT [facility]
--- NOTE | 2018-07-13 16:00 | NUR ---
RIGHT DOUBLE LUMEN PICC LINE REMOVED WITH NO DIFFICULTY,NO BLEEDING NOTE.BLUE TIP OF CATHETER INTACT.WITNESSED BY ISRAEL MCMULLEN.
--- NOTE | 2018-07-13 16:20 | NUR ---
BROTHER WAS INFORME OF PATIENT'S TRANSFER TO [facility] WITH [employer] MACHINE OPERATOR
[2018-07-29] MEDS ORDERED: INSU100I33 SC (13:13)
[2018-07-29] MEDS ORDERED: NOVO3I SC (13:13)
== END 2018-07-13 16:27 | DRG 637 ==
LOC: E/R 03:29 → ICU 08:52 → 6WM 07-06 18:32 → MS1 07-13 10:36
PROVIDERS: ADMIT Family Medicine; ATTEND Family Medicine
PROC: 02HV33Z Insertion of Infusion Device into Superior Vena Cava, Percutaneous Approach (ICD-10-PCS; principal; 2018-07-04)
PROC: 0W9G3ZX Drainage of Peritoneal Cavity, Percutaneous Approach, Diagnostic (ICD-10-PCS; 2018-07-11)
DX: E11.10 Type 2 diabetes mellitus with ketoacidosis without coma (principal); K85.10 Biliary acute pancreatitis without necrosis or infection; K85.20 Alcohol induced acute pancreatitis without necrosis or infection; G92 Toxic encephalopathy; E87.0 Hyperosmolality and hypernatremia; E44.0 Moderate protein-calorie malnutrition; D61.818 Other pancytopenia; R65.10 Systemic inflammatory response syndrome (SIRS) of non-infectious origin without acute organ dysfunction; K76.6 Portal hypertension; E83.39 Other disorders of phosphorus metabolism; E83.51 Hypocalcemia; E83.41 Hypermagnesemia; F10.20 Alcohol dependence, uncomplicated; K80.20 Calculus of gallbladder without cholecystitis without obstruction; K29.50 Unspecified chronic gastritis without bleeding; K20.8 Other esophagitis; D69.59 Other secondary thrombocytopenia; E87.6 Hypokalemia; E83.42 Hypomagnesemia; K70.31 Alcoholic cirrhosis of liver with ascites; Z68.21 Body mass index [BMI] 21.0-21.9, adult
CPT/HCPCS: 36415; 36430; 36569; 71045; 74176; 74181; 76705; 76937; 78226; 80048; 80053; 81001; 82140; 82150; 82607; 82728; 82803; 82947; 82962; 83036; 83540; 83605; 83690; 83735; 84100; 84484; 85025; 85049; 85610; 85730; 86592; 86850; 86900; 86901; 87040; 87070; 87075; 87081; 87086; 87102; 87116; 88104; 88305; 89051; 90686; 92526; 92610; 93005; 96361; 96365; 96375; 97110; 97116; 97161; 97530; A9537; C9113; J0692; J1815; J2270; J2405; J2543; J3411; J3475; J3480; J7030; J7042; J7050; J7120; P9059

== ENCOUNTER 2018-08-30 17:30 | Inpatient (IN) | payer BC ==
[~2018-08-30] VITALS: Ht 165.1 cm; Wt 54.9 kg
[~2018-08-30 17:30] MED LIST changes: -AMOX1TAB10 PO; +FOLI-49 PO; -IBUP-1542 PO; +MULT-761 PO; +NOVO3I SC; +PROP10TA6 PO; -SITA25TA3 PO; +SPIR25TA PO; +THIA100T10 PO
[2018-08-30] MEDS ORDERED: SOD CHLORIDE 0.9% 500 ML IV STA (20:06)
--- NOTE | 2018-08-30 21:02 | ERD ---
ER Documentation Chief Complaint Chief Complaint AP x 2 weeks hx of liver cirrhosis with headache HPI 52-year-old male with a history of cirrhosis and diabetes presenting with 2 weeks of epigastric pain and headache. Patient is not a very good historian and seems somewhat confused. He is unable to describe his headache and does not remember when it first started and how it started. He does have paperwork from a visit today at [facility] gastroenterology, but he is unable to explain to me what happened at that visit. He does explain that he is taking all of his medications appropriately. ROS . Limited due to patient's altered mental status Medications Home Meds Active Scripts Multivitamin (MULTI VITAMIN DAILY) 1 Each Tablet, 1 TAB PO DAILY, #30 TAB Prov:ERICKSON TRENTO M. 07/13/18 Thiamine* (Thiamine*) 100 Mg Tablet, 100 MG PO DAILY, #30 TAB Prov:[facility]AM[facility]LANGER [facility]. 07/13/18 Folic Acid* (Folic Acid*) 1 Mg Tablet, 1 MG PO DAILY, #30 TAB Prov:SAMM [facility]LANG[facility] M. 07/13/18 Spironolactone* (Aldactone*) 25 Mg Tablet, 25 MG PO DAILY for 30 Days, TAB Prov:TWANERICKSONO M. 07/13/18 Propranolol Hcl* (Propranolol Hcl*) 10 Mg Tablet, 10 MG PO BID for 30 Days, TAB Prov:TWANERICKSON EmeryO M. 07/13/18 Reported Medications Lactulose* (Lactulose*) 20 Gm/30 Ml Solution, 45 ML PO Q6H, ML 08/30/18 Insulin Glargine,Hum.rec.anlog (Basaglar Kwikpen U-100) 100 Unit/1 Ml Insuln.pen, 18 UNIT SC QHS, EA 08/30/18 Discontinued Reported Medications Rifaximin* (Xifaxan*) 550 Mg Tablet, 550 MG PO BID, TAB 05/25/18 Discontinued Scripts Insulin Aspart* (Novolog Insulin Pen*) 100 Unit/Ml Soln, 4 UNIT SC WITH MEALS for 30 Days Prov:JADYN SORTO MD 07/29/18 Insulin Glargine,Hum.rec.anlog (Basaglar Kwikpen U-100) 100 Unit/1 Ml Insuln.pen, 12 UNIT SC QHS for 30 Days, EA 6 Refills Prov:JADYN SORTO MD 07/29/18 Lactulose* (Lactulose*) 20 Gm/30 Ml Solution, 20 GM PO Q6H for 30 Days, ML Prov:TWANSAMMRUSTAM Renee 07/13/18 Simethicone (Mi-Acid) 80 Mg Tab.chew, 160 MG PO Q6 PRN for bloating for 30 Days, #120 TAB.CHEW Prov:DYLAN REBOLLEDO MD 06/04/18 Pantoprazole* (Pantoprazole*) 40 Mg Tablet.dr, 40 MG PO AC BREAKFAST DINNER for 30 Days, #60 TAB 6 Refills Prov:DYLAN REBOLLEDO MD 06/04/18 Allergies Allergies: Coded Allergies: No Known Allergy (Unverified , 08/30/18) PMhx/Soc History of Surgery: No Anesthesia Reaction: No Hx Neurological Disorder: Yes (hepatic encephalopathy) Hx Respiratory Disorders: No Hx Cardiac Disorders: No Hx Psychiatric Problems: No Hx Miscellaneous Medical Probl: No Hx Alcohol Use: Yes Hx Substance Use: No Hx Tobacco Use: Yes Smoking Status: Former smoker FmHx Unable to obtain Physical Exam Vitals Vital Signs Date Temp Pulse Resp B/P (MAP) Pulse Ox O2 O2 Flow FiO2 Time Delivery Rate 08/30/18 98.3 70 14 108/66 100 Room Air 23:00 (80) 08/30/18 75 18 131/81 100 Room Air 21:16 (98) 08/30/18 98.7 82 16 129/83 100 Room Air 19:30 (98) 08/30/18 98.8 86 20 126/67 100 17:41 (86) Physical Exam Const: No acute distress, thin body habitus, chronically ill-appearing Head: Atraumatic Eyes: Normal Conjunctiva ENT: Normal External Ears, Nose and Mouth. Neck: Full range of motion. No meningismus. Resp: Clear to auscultation bilaterally Cardio: Regular rate and rhythm, no murmurs Abd: Soft, non tender, non distended. Normal bowel sounds Skin: No petechiae or rashes Back: No midline or flank tenderness Ext: No cyanosis, or edema Neur: Awake and alert, slow to respond, normal speech, oriented to month and self. No dysarthria. Strength and sensations intact in all 4 extremities. Steady gait Psych: Flat affect, depressed mood Result Diagram: 08/30/18193208/30/18 2336 Results 24 hrs Laboratory Tests Test 08/30/18 19:33 08/30/18 20:06 08/30/18 21:11 08/30/18 21:57 White Blood 5.1 10^3/ul Count Red Blood Count 4.24 10^6/ul Hemoglobin 13.9 g/dl Hematocrit 39.8 % Mean Corpuscular 93.9 fl Volume Mean Corpuscular 32.8 pg Hemoglobin Mean Corpuscular 34.9 g/dl Hemoglobin Arlene nt Red Cell 13.2 % Distribution Width Platelet Count 69 10^3/UL Mean Platelet 9.5 fl Volume Immature 0.400 % Granulocytes % Neutrophils % 68.4 % Segmented 70 % Neutrophils % (Manual) Band Neutrophils 2 % % (Manual) Lymphocytes % 21.4 % Lymphocytes % 12 % (Manual) Reactive 2 % Lymphocytes % (Manual) Monocytes % 9.2 % Monocytes % 8 % (Manual) Eosinophils % 0.2 % Basophils % 0.4 % Basophils % 1 % (Manual) Metamyelocytes % 1 % (manual) Myelocytes % 3 % (Manual) Nucleated Red 0.0 /100WBC Blood Cells % Immature 0.020 10^3/ul Granulocytes # Neutrophils # 3.5 10^3/ul Neutrophils # 3.6 10^3/ul (Manual) Band Neutrophils 0.1 10^3/ul # Lymphocytes 0.6 10^3/ul (Manual) Lymphocytes # 1.1 10^3/ul Reactive 0.1 10^3/ul Lymphocytes # Monocytes # 0.5 10^3/ul Monocytes # 0.4 10^3/ul (Manual) Eosinophils # 0.0 10^3/ul Basophils # 0.0 10^3/ul Basophils # 0.0 10^3/ul (Manual) Metamyelocytes # 0.0 10^3/ul Myelocytes # 0.1 10^3/ul Nucleated Red 0.0 10^3/ul Blood Cells # Platelet @See below Morphology Comment Poikilocytosis 2+ Anisocytosis 2+ Macrocytosis 2+ Prothrombin Time 16.4 Sec Prothrombin Time 1.3 Ratio INR 1.31 International Normalized Ratio Activated 27.2 Sec Partial Thrombop last Time Urine Color PEG Urine Clarity CLEAR Urine pH 7.0 Urine Specific 1.025 [place] Urine Ketones 1+ mg/dL Urine Nitrite NEGATIVE mg/dL Urine Bilirubin NEGATIVE mg/dL Urine NEGATIVE mg/dL Urobilinogen Urine Leukocyte 1+ Roberto/ul Esterase Urine 5 /HPF Microscopic RBC Urine 8 /HPF Microscopic WBC Urine Squamous FEW /HPF Epithelial Cells Urine Hemoglobin NEGATIVE mg/dL Urine Glucose 3+ mg/dL Urine Total NEGATIVE mg/dl Protein Sodium Level 131 mmol/L Potassium Level 3.2 mmol/L Chloride Level 95 mmol/L Carbon Dioxide 20 mmol/L Level Anion Gap 16 Blood Urea 13 mg/dl Nitrogen Creatinine 0.54 mg/dl Est Glomerular > 60 mL/min Filtrat Rate mL/min Glucose Level 620 mg/dl Calcium Level 8.7 mg/dl Total Bilirubin 1.5 mg/dl Direct Bilirubin 0.00 mg/dl Indirect 1.5 mg/dl Bilirubin Aspartate Amino 106 IU/L Transf (AST/SGOT ) Alanine 55 IU/L Aminotransferase (ALT/SGPT) Alkaline 300 IU/L Phosphatase Ammonia 93 umol/l Troponin I < 0.012 ng/ml Total Protein 7.3 g/dl Albumin 2.9 g/dl Globulin 4.40 g/dl Albumin/Globulin 0.65 Ratio Lipase 97 U/L Hemoglobin A1c 10.8 % Bedside Glucose 530 mg/dL Blood Gas Blood venous Specimen Source Arterial Blood 08/30/2018 10:33 Date Drawn :53 PM Arterial Blood VENOUS LINE Gas Puncture Site Thierry Test N/A Venous Blood pH 7.409 Venous Blood 32.5 mmHG pCO2 (Temp Corrected) Venous Blood pO2 49.0 mmHG (Temp Corrected) Venous Blood 20.1 mmol/L HCO3 Venous Blood 82.2 mmHG Oxygen Saturation Venous Blood -3.6 mmol/L Base Excess Venous Blood 13.3 g/dl Total Hemoglobin Venous Blood 81.5 % Oxyhemoglobin Venous Blood 0.3 % Methemoglobin Carboxyhemoglobi 0.6 % n Blood Gas 37.0 C Temperature Blood Gas ROOM AIR Modality FiO2 21.0 % Blood Gas MG Notified Whom Blood Gas 08/30/2018 10:40 Notified Time :40 PM Test 08/30/18 22:38 08/30/18 23:36 08/30/18 23:37 08/30/18 23:58 Bedside Glucose 486 mg/dL 452 mg/dL Sodium Level 133 mmol/L Potassium Level 2.9 mmol/L Chloride Level 99 mmol/L Carbon Dioxide 22 mmol/L Level Anion Gap 12 Blood Urea 13 mg/dl Nitrogen Creatinine 0.49 mg/dl Est Glomerular > 60 mL/min Filtrat Rate mL/min Glucose Level 493 mg/dl Calcium Level 8.6 mg/dl Phosphorus Level 2.8 mg/dl Magnesium Level 1.9 mg/dl Blood Gas Blood venous Specimen Source Arterial Blood 08/31/2018 12:08 Date Drawn :05 AM Arterial Blood VENOUS LINE Gas Puncture Site Thierry Test N/A Venous Blood pH 7.410 Venous Blood 34.5 mmHG pCO2 (Temp Corrected) Venous Blood pO2 48.9 mmHG (Temp Corrected) Venous Blood 21.4 mmol/L HCO3 Venous Blood 81.6 mmHG Oxygen Saturation Venous Blood -2.6 mmol/L Base Excess Venous Blood 13.3 g/dl Total Hemoglobin Venous Blood 80.8 % Oxyhemoglobin Venous Blood 0.3 % Methemoglobin Carboxyhemoglobi 0.7 % n Blood Gas 37.0 C Temperature Blood Gas ROOM AIR Modality FiO2 21.0 % Blood Gas MG Notified Whom Blood Gas 08/31/2018 12:12 Notified Time :33 AM Test 08/31/18 00:35 Bedside Glucose 401 mg/dL Current Medications Medications Dose Sig/Ary Start Time Status Last (Trade) Ordered Route PRN Stop Time Admin Dose Reason Admin Sodium 500 ml @ Q1H STAT 08/30/18 DC 08/30/18 Chloride 500 mls/hr IV 20:06 20:35 08/30/18 21:05 Lactulose 30 gm ONCE ONCE 08/30/18 DC 08/30/18 (Enulose) PO 21:30 21:15 08/30/18 21:31 Potassium 1,000 ml @ Q0M IV 08/30/18 DC Chloride/Sodi 0 mls/hr 21:58 um Chloride 08/30/18 22:58 Potassium 1,000 ml @ Q0M IV 08/30/18 Chloride/Dext 0 mls/hr 21:58 patricia/ Sod Cl Potassium 1,000 ml @ Q0M IV 08/30/18 Chloride/Sodi 0 mls/hr 21:58 um Chloride Potassium 1,000 ml @ Q0M IV 08/30/18 Chloride/Dext 0 mls/hr 21:58 patricia/ Sod Cl Sodium 1,000 ml @ Q0M IV 08/30/18 Chloride 0 mls/hr 21:58 1,000 ml @ Q0M IV 08/30/18 Dextrose/Sodi 0 mls/hr 21:58 um Chloride Insulin 101 ml @ ER DKA 08/30/18 08/30/18 Human 4.45 mls/hr PROTOCOL IV 22:00 23:51 Regular 100 unit/ Sodium Chloride Lactated 440 ml @ ONCE ONCE 08/30/18 DC 08/30/18 Ringer's 440 mls/hr IV 22:00 22:26 08/30/18 22:59 HYPOGLYCEM 08/30/18 Miscellaneous HYPOGLYCEMIA PROTOCOL PRN 22:00 TREATMENT XX Information .HYPOGLYCEMIA (* PROTOCOL Miscellaneous Pharmacy Order) Dextrose 50 ml Q15M PRN 08/30/18 (D50w IV 22:00 Syringe) .DECREASED GLUCOSE Dextrose 25 ml Q15M PRN 08/30/18 (D50w IV 22:00 Syringe) .DECREASED GLUCOSE Potassium 1,000 ml @ Q0M IV 08/30/18 08/30/18 Chloride/Sodi 0 mls/hr 23:00 23:52 um Chloride Ondansetron 4 mg ER BRIDGE 08/30/18 HCl (Zofran PRN IV 23:30 Inj) NAUSEA/VOMITI 08/31/18 23:29 NG 650 mg ER BRIDGE 08/30/18 Acetaminophen PRN PO 23:30 (Tylenol .MILD PAIN 08/31/18 23:29 Tab) 1-3 OR TEMP Sodium 1,000 ml @ Q10H IV 08/31/18 08/31/18 Chloride 100 mls/hr 00:27 00:55 IV Flush 3 ml PER 08/31/18 (NS 3 ml) PROTOCOL IV 00:30 Ondansetron 4 mg Q6H PRN 08/31/18 HCl (Zofran IV 00:30 Inj) NAUSEA/VOMITI NG 650 mg Q6H PRN 08/31/18 Acetaminophen PO .PAIN 1-3 00:30 (Tylenol OR TEMP Tab) Heparin 5,000 unit Q12 SC 08/31/18 Sodium 09:00 (Porcine) (Heparin (5000 Units/1ml)) Discontinue ONCE ONCE 08/31/18 DC Miscellaneous current oral XX 00:30 sulfonylur... 08/31/18 00:38 Information (* Miscellaneous Pharmacy Order) Diagnostic 1 ea 02 XX 08/31/18 Test (Pha) 02:00 (Accu-Chek) Insulin 3 unit WITH MEALS 08/31/18 Aspart SC 08:00 (Novolog Insulin Pen) ONCE ONCE 08/31/18 DC Miscellaneous HYPOGLYCEMIA XX 00:30 PROTOCOL 08/31/18 00:38 Information w... (* Miscellaneous Pharmacy Order) Insulin NOVOLOG Q4 SC 08/31/18 Aspart *MODERATE* 01:00 (Novolog ALGORI... Insulin Pen) Discontinue ONCE ONCE 08/31/18 DC Miscellaneous all previ... XX 00:30 08/31/18 00:38 Information (* Miscellaneous Pharmacy Order) Insulin 20 unit QHS SC 08/31/18 DC Glargine 00:30 (Lantus) 08/31/18 00:52 1 tab DAILY PO 08/31/18 Multivitamins 09:00 Therapeutic (Theragran) Potassium 100 ml @ Q2H IVPB 08/31/18 08/31/18 Chloride 50 mls/hr 01:00 00:55 08/31/18 06:59 1 ea NOTE XX 08/31/18 Miscellaneous 01:00 Information Glucose 15 gm Q15M PRN 08/31/18 (Glutose) PO DECREASED 01:00 GLUCOSE Glucose 22.5 gm Q15M PRN 08/31/18 (Glutose) PO DECREASED 01:00 GLUCOSE Dextrose 25 ml Q15M PRN 08/31/18 (D50w IV DECREASED 01:00 Syringe) GLUCOSE Dextrose 50 ml Q15M PRN 08/31/18 (D50w IV DECREASED 01:00 Syringe) GLUCOSE Glucagon 1 mg Q15M PRN 08/31/18 (Glucagen) IM DECREASED 01:00 GLUCOSE Glucose 15 gm Q15M PRN 08/31/18 (Glutose) BUCCAL 01:00 DECREASED GLUCOSE Insulin 20 units HS SC 08/31/18 Glargine 01:00 (Lantus) Procedures/MDM EMERGENT LABS AND DIAGNOSTIC STUDIES: Lab Results above were reviewed and interpreted by me. CBC: No evidence of infection. Thrombocytopenia noted CMP: Hyperglycemia with evidence of mild acidosis and increased anion gap, possibly due to DKA. Mild hyponatremia. No evidence of renal failure. Abnormalities consistent with chronic liver disease Troponin within normal limits, not indicative of cardiac ischemia UA: no evidence of infection. ketones noted Ammonia elevated 12-lead EKG was interpreted by Jesus Bonilla MD: Normal Sinus Rhythm with ventricular rate of 75 beats per minute Incomplete right bundle branch block with anterior T wave inversions. QTC prolonged at 529. No arrhythmia or STEMI. Abnormal EKG, possible ischemia Radiology Results as interpreted by Radiology below were reviewed by Etelvina Bonilla MD: Chest Xr: No acute abnormalities CT head shows no acute abnormalities Initial Nursing notes reviewed. Previous Medical Records requested via the Electronic Health Record. EMERGENCY DEPARTMENT COURSE / MEDICAL DECISION MAKING: Patient is presenting with confusion and multiple chronic complaints. Vitals were unremarkable upon arrival. Ammonia was elevated, consistent with hepatic encephalopathy. He did have mild acidosis with increased anion gap and hyperglycemia, concerning for mild DKA. DKA protocol was started. He was given lactulose for his hyperammonemia. His gap quickly closed. I discussed the patient's case with the admitting physician and recommended telemetry admission with subcutaneous insulin to control his blood sugars. At this time, there is no evidence of sepsis and I do not suspect acute bacterial infection. However patient is not stable and will require admission for his acute hepatic encepha lopathy and stabilization of his blood sugar. Critical Care Time: 45 minutes Treatments/Evaluations: Close monitoring and treatment of unstable vital signs, cardiorespiratory, and neurologic status, while maintaining tight balance of fluid, respiratory, and cardiac interventions. This time includes discussing the case with the patient and the patients family. This time does not include all procedures stated elsewhere in this record. This time also includes reviewing old records, labs and radiological studies. This time includes examining and re- examining the patient. Additionally, this time also includes arranging care with admitting and consulting physicians. Accepting Care Team: Current data and ongoing care discussed. Time: Time of admission Primary Provider: Dr. Joseph Departure Diagnosis: Primary Impression: Acute hepatic encephalopathy Additional Impressions: Diabetic ketoacidosis Diabetes mellitus type: type 2 Diabetes mellitus complication detail: without coma Qualified Codes: E11.10 - Type 2 diabetes mellitus with ketoacidosis without coma Hypokalemia Condition: Serious AMBERLY BONILLA MD Aug 30, 2018 21:02
[2018-08-30] MEDS ORDERED: INSU100I33 SC (21:28)
[2018-08-30] MEDS ORDERED: LACT20SO2 PO (21:29)
[2018-08-30] MEDS ORDERED: LACTULOSE 30ML CUP PO ONE (21:30)
[2018-08-30] MEDS ORDERED: NS + KCL 40 MEQ 1,000 ML IV SCH ×2 (21:58→23:00)
[2018-08-30] MEDS ORDERED: DEXTROSE 10 %/0.45 % NACL 1,000 ML IV SCH (21:58)
[2018-08-30] MEDS ORDERED: SOD CHLORIDE 0.9% 1,000 ML IV SCH (21:58)
[2018-08-30] MEDS ORDERED: NS + KCL 30 MEQ 1,000 ML IV SCH (21:58)
[2018-08-30] MEDS ORDERED: D10/0.45% NACL + KCL 30 MEQ 1,000 ML IV SCH (21:58)
[2018-08-30] MEDS ORDERED: D10/0.45% NACL + KCL 40 MEQ 1,000 ML IV SCH (21:58)
[2018-08-30] MEDS ORDERED: LACTATED RINGER S IV ONE (22:00)
[2018-08-30] MEDS ORDERED: INSULIN REGULAR, HUMAN 100 UNIT in SOD CHLORIDE 0.9% 100 ML IV SCH ×2 (22:00)
[2018-08-30] MEDS ORDERED: DEXTROSE 50% 50 ML SYRINGE IV PRN ×2 (22:00)
[2018-08-30] MEDS ORDERED: ACETAMINOPHEN 325 MG TAB PO PRN (23:30)
[2018-08-30] MEDS ORDERED: ONDANSETRON 4 MG INJ IV PRN (23:30)
[2018-08-31] VITALS (11 sets, daily range): BP systolic 99–114; BP diastolic 54–70; PULSE 67–83; RESP 16–20; Ht 165.1 cm; Wt 54.9 kg
[2018-08-31] MEDS ORDERED: ONDANSETRON 4 MG INJ IV PRN (00:30)
[2018-08-31] MEDS ORDERED: NACL 0.9% 3 ML SYG IV SCH (00:30)
[2018-08-31] MEDS ORDERED: INSULIN GLARGINE [LANtus] 3 ML PEN SC SCH (00:30)
[2018-08-31] MEDS ORDERED: ACETAMINOPHEN 325 MG TAB PO PRN (00:30)
[2018-08-31] MEDS: POTASSIUM CHLORIDE 100 ML IVPB SCH ×6 (00:55→20:23)
[2018-08-31] MEDS: SOD CHLORIDE 0.9% 1,000 ML IV SCH ×3 (00:55→20:27)
[2018-08-31] MEDS ORDERED: DEXTROSE 50% 50 ML SYRINGE IV PRN ×2 (01:00)
[2018-08-31] MEDS ORDERED: GLUCOSE GEL 15 GRAM TUBE BUCCAL PRN (01:00)
[2018-08-31] MEDS ORDERED: INSULIN GLARGINE [LANTus] (100 UNITS/ML) SYG SC SCH ×2 (01:00→21:00)
[2018-08-31] MEDS ORDERED: GLUCOSE GEL 15 GRAM TUBE PO PRN ×2 (01:00)
[2018-08-31] MEDS ORDERED: GLUCAGON 1 MG INJ IM PRN (01:00)
[2018-08-31] MEDS ORDERED: INSULIN ASP PROT/ASPART (70/30) PEN SC ONE (01:34)
[2018-08-31] MEDS: INSULIN ASPART [NOVOLOG] 3 ML PEN SC SCH ×9 (01:47→20:35)
[2018-08-31] MEDS: ACCU-CHEK XX SCH (02:00)
--- NOTE | 2018-08-31 05:03 | HP ---
Date/Time of Note Date/Time of Note DATE: 08/31/18 TIME: 04:56 Assessment/Plan VTE Prophylaxis Pharmacological prophylaxis: heparin Lines/Catheters IV Catheter Type (from Nrs): Peripheral IV Urinary Cath still in place: No Assessment/Plan Assessment/Plan 1. Mild DKA: Acidosis resolved, gap closed -Currently on subcu insulin -Continue IV fluid, correct electrolytes 2. Abdominal pain: Most likely secondary to above 3. UTI: -IV fluids, IV antibiotic. Follow-up culture results 4. Altered mentation, most likely secondary to hepatic encephalopathy -Continue lactulose -Rifaximin will be added as needed -Head CT negative for acute findings 5. Hyponatremia: pseudohyponatremia from hyperglycemia 6. Hypokalemia: Replete. Monitor closely Result Diagram: 08/30/18 1933 08/30/18 2336 Results 24hrs Laboratory Tests Test 08/30/18 19:33 08/30/18 20:06 08/30/18 21:11 08/30/18 21:57 White Blood Count 5.1 # Red Blood Count 4.24 #L Hemoglobin 13.9 #L Hematocrit 39.8 #L Mean Corpuscular 93.9 Volume Mean Corpuscular 32.8 Hemoglobin Mean Corpuscular 34.9 Hemoglobin Concen t Red Cell 13.2 Distribution Width Platelet Count 69 L Mean Platelet 9.5 Volume Immature 0.400 Granulocytes % Neutrophils % 68.4 Segmented 70 Neutrophils % (Manual) Band Neutrophils 2 % (Manual) Lymphocytes % 21.4 Lymphocytes % 12 L (Manual) Reactive 2 H Lymphocytes % (Manual) Monocytes % 9.2 Monocytes % 8 (Manual) Eosinophils % 0.2 Basophils % 0.4 Basophils % 1 (Manual) Metamyelocytes % 1 H (manual) Myelocytes % 3 H (Manual) Nucleated Red 0.0 Blood Cells % Immature 0.020 Granulocytes # Neutrophils # 3.5 Neutrophils # 3.6 (Manual) Band Neutrophils 0.1 # Lymphocytes 0.6 L (Manual) Lymphocytes # 1.1 Reactive 0.1 H Lymphocytes # Monocytes # 0.5 Monocytes # 0.4 (Manual) Eosinophils # 0.0 Basophils # 0.0 Basophils # 0.0 (Manual) Metamyelocytes # 0.0 Myelocytes # 0.1 H Nucleated Red 0.0 Blood Cells # Platelet @See below Morphology Comment Poikilocytosis 2+ Anisocytosis 2+ Macrocytosis 2+ Prothrombin Time 16.4 H Prothrombin Time 1.3 Ratio INR International 1.31 Normalized Ratio Activated 27.2 Partial Thrombopl ast Time Urine Color PEG Urine Clarity CLEAR Urine pH 7.0 Urine Specific 1.025 [place] Urine Ketones 1+ H Urine Nitrite NEGATIVE Urine Bilirubin NEGATIVE Urine NEGATIVE Urobilinogen Urine Leukocyte 1+ H Esterase Urine Microscopic 5 RBC Urine Microscopic 8 H WBC Urine Squamous FEW Epithelial Cells Urine Hemoglobin NEGATIVE Urine Glucose 3+ H Urine Total NEGATIVE Protein Sodium Level 131 L Potassium Level 3.2 L Chloride Level 95 L Carbon Dioxide 20 L Level Anion Gap 16 H Blood Urea 13 Nitrogen Creatinine 0.54 L Est Glomerular > 60 Filtrat Rate mL/min Glucose Level 620 *H Calcium Level 8.7 Total Bilirubin 1.5 H Direct Bilirubin 0.00 Indirect 1.5 H Bilirubin Aspartate Amino 106 H Transf (AST/SGOT) Alanine 55 Aminotransferase (ALT/SGPT) Alkaline 300 H Phosphatase Ammonia 93 H Troponin I < 0.012 Total Protein 7.3 Albumin 2.9 L Globulin 4.40 H Albumin/Globulin 0.65 Ratio Lipase 97 Hemoglobin A1c 10.8 H Bedside Glucose 530 *H Blood Gas Blood venous Specimen Source Arterial Blood 08/30/2018 10:33: Date Drawn 53 PM Arterial Blood VENOUS LINE Gas Puncture Site Thierry Test N/A Venous Blood pH 7.409 Venous Blood pCO2 32.5 L (Temp Corrected) Venous Blood pO2 49.0 H (Temp Corrected) Venous Blood HCO3 20.1 L Venous Blood 82.2 H Oxygen Saturation Venous Blood Base -3.6 Excess Venous Blood 13.3 Total Hemoglobin Venous Blood 81.5 Oxyhemoglobin Venous Blood 0.3 Methemoglobin Carboxyhemoglobin 0.6 Blood Gas 37.0 Temperature Blood Gas ROOM AIR Modality FiO2 21.0 Blood Gas MG Notified Whom Blood Gas 08/30/2018 10:40: Notified Time 40 PM Test 08/30/18 22:38 08/30/18 23:36 08/30/18 23:37 08/30/18 23:58 Bedside Glucose 486 *H 452 *H Sodium Level 133 L Potassium Level 2.9 *L Chloride Level 99 Carbon Dioxide 22 Level Anion Gap 12 Blood Urea 13 Nitrogen Creatinine 0.49 L Est Glomerular > 60 Filtrat Rate mL/min Glucose Level 493 *H Calcium Level 8.6 Phosphorus Level 2.8 Magnesium Level 1.9 Blood Gas Blood venous Specimen Source Arterial Blood 08/31/2018 12:08: Date Drawn 05 AM Arterial Blood VENOUS LINE Gas Puncture Site Thierry Test N/A Venous Blood pH 7.410 Venous Blood pCO2 34.5 L (Temp Corrected) Venous Blood pO2 48.9 H (Temp Corrected) Venous Blood HCO3 21.4 L Venous Blood 81.6 H Oxygen Saturation Venous Blood Base -2.6 Excess Venous Blood 13.3 Total Hemoglobin Venous Blood 80.8 Oxyhemoglobin Venous Blood 0.3 Methemoglobin Carboxyhemoglobin 0.7 Blood Gas 37.0 Temperature Blood Gas ROOM AIR Modality FiO2 21.0 Blood Gas MG Notified Whom Blood Gas 08/31/2018 12:12: Notified Time 33 AM Test 08/31/18 00:35 08/31/18 01:26 Bedside Glucose 401 *H 405 *H HPI/ROS Admit Date/Time Admit Date/Time Aug 30, 2018 at 23:23 Hx of Present Illness This is a 52-year-old male with a history of decompensated cirrhosis who was brought to ER complaining of epigastric abdominal pain and headache. Patient appears somehow weak and also showing signs of confusion. Head CT in the ER was negative for acute findings. Lab shows multiple abnormalities including a blood glucose of 600 with a bicarb of 20 and anion gap 16 and 1+ ketone and urine, sodium 131. Patient was started on a DKA protocol in the ER. Repeat lab shows resolution of acidosis and gap is closed. Patient was transitioned to subcutaneous insulin and admitted to telemetry. PMH/Family/Social Past Medical History Medical History: other (see hpi) Medications Current Medications Potassium Chloride/Dextrose/ Sod Cl 1,000 ml @ 0 mls/hr Q0M IV ; Start 08/30/18 at 21:58 Potassium Chloride/Sodium Chloride 1,000 ml @ 0 mls/hr Q0M IV ; Start 08/30/18 at 21:58 Potassium Chloride/Dextrose/ Sod Cl 1,000 ml @ 0 mls/hr Q0M IV ; Start 08/30/18 at 21:58 Sodium Chloride 1,000 ml @ 0 mls/hr Q0M IV ; Start 08/30/18 at 21:58 Dextrose/Sodium Chloride 1,000 ml @ 0 mls/hr Q0M IV ; Start 08/30/18 at 21:58 Insulin Human Regular 100 unit/ Sodium Chloride 101 ml @ 4.45 mls/hr ER DKA PROTOCOL IV Last administered on 08/30/18at 23:51; Admin Dose 4.45 MLS/HR; Start 08/30/18 at 22:00 Miscellaneous Information (* Miscellaneous Pharmacy Order) HYPOGLYCEMIA TREATMENT HYPOGLYCEM PROTOCOL PRN XX .HYPOGLYCEMIA PROTOCOL; Start 08/30/18 at 22:00 Dextrose (D50w Syringe) 50 ml Q15M PRN IV .DECREASED GLUCOSE; Start 08/30/18 at 22:00 Dextrose (D50w Syringe) 25 ml Q15M PRN IV .DECREASED GLUCOSE; Start 08/30/18 at 22:00 Potassium Chloride/Sodium Chloride 1,000 ml @ 0 mls/hr Q0M IV Last administered on 08/30/18at 23:52; Admin Dose 250 MLS/HR; Start 08/30/18 at 23:00 Ondansetron HCl (Zofran Inj) 4 mg ER BRIDGE PRN IV NAUSEA/VOMITING; Start 08/30/18 at 23:30; Stop 08/31/18 at 23:29 Acetaminophen (Tylenol Tab) 650 mg ER BRIDGE PRN PO .MILD PAIN 1-3 OR TEMP; Start 08/30/18 at 23:30; Stop 08/31/18 at 23:29 Sodium Chloride 1,000 ml @ 100 mls/hr Q10H IV Last administered on 08/31/18at 00:55; Admin Dose 100 MLS/HR; Start 08/31/18 at 00:27 IV Flush (NS 3 ml) 3 ml PER PROTOCOL IV ; Start 08/31/18 at 00:30 Ondansetron HCl (Zofran Inj) 4 mg Q6H PRN IV NAUSEA/VOMITING; Start 08/31/18 at 00:30 Acetaminophen (Tylenol Tab) 650 mg Q6H PRN PO .PAIN 1-3 OR TEMP; Start 08/31/18 at 00:30 Heparin Sodium (Porcine) (Heparin (5000 Units/1ml)) 5,000 unit Q12 SC ; Start 08/31/18 at 09:00 Diagnostic Test (Pha) (Accu-Chek) 1 ea 02 XX ; Start 08/31/18 at 02:00 Insulin Aspart (Novolog Insulin Pen) 3 unit WITH MEALS SC ; Start 08/31/18 at 07:55 Insulin Aspart (Novolog Insulin Pen) NOVOLOG *MODERATE* ALGORI... Q4 SC Last administered on 08/31/18at 01:47; Admin Dose 12 UNIT; Start 08/31/18 at 01:00 Multivitamins Therapeutic (Theragran) 1 tab DAILY PO ; Start 08/31/18 at 09:00 Potassium Chloride 100 ml @ 50 mls/hr Q2H IVPB Last administered on 08/31/18at 04:17; Admin Dose 50 MLS/HR; Start 08/31/18 at 01:00; Stop 08/31/18 at 06:59 Miscellaneous Information 1 ea NOTE XX ; Start 08/31/18 at 01:00 Glucose (Glutose) 15 gm Q15M PRN PO DECREASED GLUCOSE; Start 08/31/18 at 01:00 Glucose (Glutose) 22.5 gm Q15M PRN PO DECREASED GLUCOSE; Start 08/31/18 at 01:00 Dextrose (D50w Syringe) 25 ml Q15M PRN IV DECREASED GLUCOSE; Start 08/31/18 at 01:00 Dextrose (D50w Syringe) 50 ml Q15M PRN IV DECREASED GLUCOSE; Start 08/31/18 at 01:00 Glucagon (Glucagen) 1 mg Q15M PRN IM DECREASED GLUCOSE; Start 08/31/18 at 01:00 Glucose (Glutose) 15 gm Q15M PRN BUCCAL DECREASED GLUCOSE; Start 08/31/18 at 01:00 Insulin Glargine (Lantus) 20 units HS SC Last administered on 08/31/18at 02:23; Admin Dose 20 UNITS; Start 08/31/18 at 01:00 Ceftriaxone Sodium 50 ml @ 100 mls/hr DAILY IVPB ; Start 08/31/18 at 09:00 Influenza Virus Vaccine Quadrival (Fluzone) 0.5 ml ONCE ONCE IM* ; Start 09/01/18 at 10:00; Stop 09/01/18 at 10:01 Coded Allergies: No Known Allergy (Unverified , 08/30/18) Past Surgical History Past Surgical Hx: other Family History Significant Family History: diabetes Social History Smoking Status: Former smoker Exam/Review of Systems Vital Signs Vitals Vital Signs Date Temp Pulse Resp B/P (MAP) Pulse Ox O2 O2 Flow FiO2 Time Delivery Rate 08/31/18 75 04:00 08/31/18 98.3 16 100/54 98 03:47 (69) 08/31/18 Room Air 01:00 Intake and Output 08/30/18 08/30/18 08/31/18 1515:00 23:00 07:00 IntakeIntake Total 500 ml 440 ml OutputOutput Total 1300 ml BalanceBalance 500 ml -860 ml Exam Exam Exam Constitutional: other (no acute distress) Eyes: PERRL ENMT: nl external ears & nose Neck: supple Respiratory: normal air movement Cardiovascular: nl pulses Gastrointestinal: soft Extremities: normal pulses BERENICE VELIZ MD Aug 31, 2018 05:03
[2018-08-31] MEDS: MULTIVITAMINS THERAPEUTIC TAB PO SCH (09:01)
[2018-08-31] MEDS: CEFTRIAXONE 1 GM/50 ML (PMX) 50 ML IVPB SCH (09:02)
[2018-08-31] MEDS: HEPARIN 5,000 UNIT/1 ML VIAL SC SCH ×2 (09:15→20:33)
--- NOTE | 2018-08-31 13:40 | PN ---
Date/Time of Note Date/Time of Note DATE: 08/31/18 TIME: 13:37 Assessment/Plan VTE Prophylaxis Risk score (from [facility])>0 risk: 3 SCD applied (from [facility]): Yes Pharmacological prophylaxis: NA/contraindicated Pharm contraindication: liver dx Lines/Catheters IV Catheter Type (from [facility]): Peripheral IV Urinary Cath still in place: No Assessment/Plan Assessment/Plan 1. DKA, resolved 2. DM, better controlled, adjust insulin dosage 3. Abdominal pain, Most likely secondary to above, resolved 4. UTI, on rocephin 5. Altered mentation, most likely secondary to hepatic encephalopathy, improved 6. Chronic alcoholic liver cirrhosis 7. Hyponatremia: pseudohyponatremia from hyperglycemia 8. Hypokalemia: Replete. Monitor closely 9. Hypomagnesemia, Mg Result Diagram: 08/30/18193208/30/186 Results 24hrs Laboratory Tests Test 08/30/18 19:33 08/30/18 20:06 08/30/18 21:11 08/30/18 21:57 White Blood Count 5.1 # Red Blood Count 4.24 #L Hemoglobin 13.9 #L Hematocrit 39.8 #L Mean Corpuscular 93.9 Volume Mean Corpuscular 32.8 Hemoglobin Mean Corpuscular 34.9 Hemoglobin Concen t Red Cell 13.2 Distribution Width Platelet Count 69 L Mean Platelet 9.5 Volume Immature 0.400 Granulocytes % Neutrophils % 68.4 Segmented 70 Neutrophils % (Manual) Band Neutrophils 2 % (Manual) Lymphocytes % 21.4 Lymphocytes % 12 L (Manual) Reactive 2 H Lymphocytes % (Manual) Monocytes % 9.2 Monocytes % 8 (Manual) Eosinophils % 0.2 Basophils % 0.4 Basophils % 1 (Manual) Metamyelocytes % 1 H (manual) Myelocytes % 3 H (Manual) Nucleated Red 0.0 Blood Cells % Immature 0.020 Granulocytes # Neutrophils # 3.5 Neutrophils # 3.6 (Manual) Band Neutrophils 0.1 # Lymphocytes 0.6 L (Manual) Lymphocytes # 1.1 Reactive 0.1 H Lymphocytes # Monocytes # 0.5 Monocytes # 0.4 (Manual) Eosinophils # 0.0 Basophils # 0.0 Basophils # 0.0 (Manual) Metamyelocytes # 0.0 Myelocytes # 0.1 H Nucleated Red 0.0 Blood Cells # Platelet @See below Morphology Comment Poikilocytosis 2+ Anisocytosis 2+ Macrocytosis 2+ Prothrombin Time 16.4 H Prothrombin Time 1.3 Ratio INR International 1.31 Normalized Ratio Activated 27.2 Partial Thrombopl ast Time Urine Color PEG Urine Clarity CLEAR Urine pH 7.0 Urine Specific 1.025 [place] Urine Ketones 1+ H Urine Nitrite NEGATIVE Urine Bilirubin NEGATIVE Urine NEGATIVE Urobilinogen Urine Leukocyte 1+ H Esterase Urine Microscopic 5 RBC Urine Microscopic 8 H WBC Urine Squamous FEW Epithelial Cells Urine Hemoglobin NEGATIVE Urine Glucose 3+ H Urine Total NEGATIVE Protein Sodium Level 131 L Potassium Level 3.2 L Chloride Level 95 L Carbon Dioxide 20 L Level Anion Gap 16 H Blood Urea 13 Nitrogen Creatinine 0.54 L Est Glomerular > 60 Filtrat Rate mL/min Glucose Level 620 *H Calcium Level 8.7 Total Bilirubin 1.5 H Direct Bilirubin 0.00 Indirect 1.5 H Bilirubin Aspartate Amino 106 H Transf (AST/SGOT) Alanine 55 Aminotransferase (ALT/SGPT) Alkaline 300 H Phosphatase Ammonia 93 H Troponin I < 0.012 Total Protein 7.3 Albumin 2.9 L Globulin 4.40 H Albumin/Globulin 0.65 Ratio Lipase 97 Hemoglobin A1c 10.8 H Bedside Glucose 530 *H Blood Gas Blood venous Specimen Source Arterial Blood 08/30/2018 10:33: Date Drawn 53 PM Arterial Blood VENOUS LINE Gas Puncture Site Thierry Test N/A Venous Blood pH 7.409 Venous Blood pCO2 32.5 L (Temp Corrected) Venous Blood pO2 49.0 H (Temp Corrected) Venous Blood HCO3 20.1 L Venous Blood 82.2 H Oxygen Saturation Venous Blood Base -3.6 Excess Venous Blood 13.3 Total Hemoglobin Venous Blood 81.5 Oxyhemoglobin Venous Blood 0.3 Methemoglobin Carboxyhemoglobin 0.6 Blood Gas 37.0 Temperature Blood Gas ROOM AIR Modality FiO2 21.0 Blood Gas MG Notified Whom Blood Gas 08/30/2018 10:40: Notified Time 40 PM Test 08/30/18 22:38 08/30/18 23:36 08/30/18 23:37 08/30/18 23:58 Bedside Glucose 486 *H 452 *H Sodium Level 133 L Potassium Level 2.9 *L Chloride Level 99 Carbon Dioxide 22 Level Anion Gap 12 Blood Urea 13 Nitrogen Creatinine 0.49 L Est Glomerular > 60 Filtrat Rate mL/min Glucose Level 493 *H Calcium Level 8.6 Phosphorus Level 2.8 Magnesium Level 1.9 Blood Gas Blood venous Specimen Source Arterial Blood 08/31/2018 12:08: Date Drawn 05 AM Arterial Blood VENOUS LINE Gas Puncture Site Thierry Test N/A Venous Blood pH 7.410 Venous Blood pCO2 34.5 L (Temp Corrected) Venous Blood pO2 48.9 H (Temp Corrected) Venous Blood HCO3 21.4 L Venous Blood 81.6 H Oxygen Saturation Venous Blood Base -2.6 Excess Venous Blood 13.3 Total Hemoglobin Venous Blood 80.8 Oxyhemoglobin Venous Blood 0.3 Methemoglobin Carboxyhemoglobin 0.7 Blood Gas 37.0 Temperature Blood Gas ROOM AIR Modality FiO2 21.0 Blood Gas MG Notified Whom Blood Gas 08/31/2018 12:12: Notified Time 33 AM Test 08/31/18 00:35 08/31/18 01:26 08/31/18 05:17 08/31/18 06:33 Bedside Glucose 401 *H 405 *H 247 H Phosphorus Level 1.4 #L Test 08/31/18 09:10 08/31/18 11:39 08/31/18 12:58 Bedside Glucose 116 80 97 Subjective 24 Hr Interval Summary Free Text/Dictation alert and oriented, no pain, wants food Exam/Review of Systems Exam Vitals Vital Signs Date Temp Pulse Resp B/P (MAP) Pulse Ox O2 O2 Flow FiO2 Time Delivery Rate 08/31/18 98.0 67 20 99/61 (74) 98 Room Air 11:03 Intake and Output 08/30/18 08/30/18 08/31/18 1515:00 23:00 07:00 IntakeIntake Total 500 ml 1040 ml OutputOutput Total 1725 ml BalanceBalance 500 ml -685 ml Constitutional: alert, oriented, well developed Head: normocephalic, atraumatic Eyes: nl conjunctiva, EOMI, nl lids, PERRL ENMT: nl external ears & nose, nl lips & teeth, nl nasal mucosa & septum Neck: supple, non-tender Respiratory: clear to auscultation, normal air movement; No congested cough, No crackles/rales, No diminished breath sounds, No intercostal retraction, No labored breathing, No respirations, No tactile fremitus, No wheezing, No other Cardiovascular: regular rate and rhythm, nl pulses; No bruits, No diastolic murmur, No edema, No gallop, No irregular rhythm, No jugular venous distention (JVD), No murmurs/extra sounds, No rub, No systolic murmur, No S3, No S4, No other Gastrointestinal: soft, nl liver, spleen, non-tender Musculoskeletal: nl extremities to inspection Extremities: normal pulses; No calf tenderness, No cyanosis, No clubbing, No edema, No pitting pedal edema, No palpable cord, No tenderness, No other 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, nl mental status, nl speech, nl strength Results Results 24hrs Laboratory Tests Test 08/30/18 19:33 08/30/18 20:06 08/30/18 21:11 08/30/18 21:57 White Blood Count 5.1 # Red Blood Count 4.24 #L Hemoglobin 13.9 #L Hematocrit 39.8 #L Mean Corpuscular 93.9 Volume Mean Corpuscular 32.8 Hemoglobin Mean Corpuscular 34.9 Hemoglobin Concen t Red Cell 13.2 Distribution Width Platelet Count 69 L Mean Platelet 9.5 Volume Immature 0.400 Granulocytes % Neutrophils % 68.4 Segmented 70 Neutrophils % (Manual) Band Neutrophils 2 % (Manual) Lymphocytes % 21.4 Lymphocytes % 12 L (Manual) Reactive 2 H Lymphocytes % (Manual) Monocytes % 9.2 Monocytes % 8 (Manual) Eosinophils % 0.2 Basophils % 0.4 Basophils % 1 (Manual) Metamyelocytes % 1 H (manual) Myelocytes % 3 H (Manual) Nucleated Red 0.0 Blood Cells % Immature 0.020 Granulocytes # Neutrophils # 3.5 Neutrophils # 3.6 (Manual) Band Neutrophils 0.1 # Lymphocytes 0.6 L (Manual) Lymphocytes # 1.1 Reactive 0.1 H Lymphocytes # Monocytes # 0.5 Monocytes # 0.4 (Manual) Eosinophils # 0.0 Basophils # 0.0 Basophils # 0.0 (Manual) Metamyelocytes # 0.0 Myelocytes # 0.1 H Nucleated Red 0.0 Blood Cells # Platelet @See below Morphology Comment Poikilocytosis 2+ Anisocytosis 2+ Macrocytosis 2+ Prothrombin Time 16.4 H Prothrombin Time 1.3 Ratio INR International 1.31 Normalized Ratio Activated 27.2 Partial Thrombopl ast Time Urine Color PEG Urine Clarity CLEAR Urine pH 7.0 Urine Specific 1.025 [place] Urine Ketones 1+ H Urine Nitrite NEGATIVE Urine Bilirubin NEGATIVE Urine NEGATIVE Urobilinogen Urine Leukocyte 1+ H Esterase Urine Microscopic 5 RBC Urine Microscopic 8 H WBC Urine Squamous FEW Epithelial Cells Urine Hemoglobin NEGATIVE Urine Glucose 3+ H Urine Total NEGATIVE Protein Sodium Level 131 L Potassium Level 3.2 L Chloride Level 95 L Carbon Dioxide 20 L Level Anion Gap 16 H Blood Urea 13 Nitrogen Creatinine 0.54 L Est Glomerular > 60 Filtrat Rate mL/min Glucose Level 620 *H Calcium Level 8.7 Total Bilirubin 1.5 H Direct Bilirubin 0.00 Indirect 1.5 H Bilirubin Aspartate Amino 106 H Transf (AST/SGOT) Alanine 55 Aminotransferase (ALT/SGPT) Alkaline 300 H Phosphatase Ammonia 93 H Troponin I < 0.012 Total Protein 7.3 Albumin 2.9 L Globulin 4.40 H Albumin/Globulin 0.65 Ratio Lipase 97 Hemoglobin A1c 10.8 H Bedside Glucose 530 *H Blood Gas Blood venous Specimen Source Arterial Blood 08/30/2018 10:33: Date Drawn 53 PM Arterial Blood VENOUS LINE Gas Puncture Site Thierry Test N/A Venous Blood pH 7.409 Venous Blood pCO2 32.5 L (Temp Corrected) Venous Blood pO2 49.0 H (Temp Corrected) Venous Blood HCO3 20.1 L Venous Blood 82.2 H Oxygen Saturation Venous Blood Base -3.6 Excess Venous Blood 13.3 Total Hemoglobin Venous Blood 81.5 Oxyhemoglobin Venous Blood 0.3 Methemoglobin Carboxyhemoglobin 0.6 Blood Gas 37.0 Temperature Blood Gas ROOM AIR Modality FiO2 21.0 Blood Gas MG Notified Whom Blood Gas 08/30/2018 10:40: Notified Time 40 PM Test 08/30/18 22:38 08/30/18 23:36 08/30/18 23:37 08/30/18 23:58 Bedside Glucose 486 *H 452 *H Sodium Level 133 L Potassium Level 2.9 *L Chloride Level 99 Carbon Dioxide 22 Level Anion Gap 12 Blood Urea 13 Nitrogen Creatinine 0.49 L Est Glomerular > 60 Filtrat Rate mL/min Glucose Level 493 *H Calcium Level 8.6 Phosphorus Level 2.8 Magnesium Level 1.9 Blood Gas Blood venous Specimen Source Arterial Blood 08/31/2018 12:08: Date Drawn 05 AM Arterial Blood VENOUS LINE Gas Puncture Site Thierry Test N/A Venous Blood pH 7.410 Venous Blood pCO2 34.5 L (Temp Corrected) Venous Blood pO2 48.9 H (Temp Corrected) Venous Blood HCO3 21.4 L Venous Blood 81.6 H Oxygen Saturation Venous Blood Base -2.6 Excess Venous Blood 13.3 Total Hemoglobin Venous Blood 80.8 Oxyhemoglobin Venous Blood 0.3 Methemoglobin Carboxyhemoglobin 0.7 Blood Gas 37.0 Temperature Blood Gas ROOM AIR Modality FiO2 21.0 Blood Gas MG Notified Whom Blood Gas 08/31/2018 12:12: Notified Time 33 AM Test 08/31/18 00:35 08/31/18 01:26 08/31/18 05:17 08/31/18 06:33 Bedside Glucose 401 *H 405 *H 247 H Phosphorus Level 1.4 #L Test 08/31/18 09:10 08/31/18 11:39 08/31/18 12:58 Bedside Glucose 116 80 97 Medications Medication Current Medications Potassium Chloride/Dextrose/ Sod Cl 1,000 ml @ 0 mls/hr Q0M IV ; Start 08/30/18 at 21:58 Potassium Chloride/Sodium Chloride 1,000 ml @ 0 mls/hr Q0M IV ; Start 08/30/18 at 21:58 Potassium Chloride/Dextrose/ Sod Cl 1,000 ml @ 0 mls/hr Q0M IV ; Start 08/30/18 at 21:58 Sodium Chloride 1,000 ml @ 0 mls/hr Q0M IV ; Start 08/30/18 at 21:58 Dextrose/Sodium Chloride 1,000 ml @ 0 mls/hr Q0M IV ; Start 08/30/18 at 21:58 Insulin Human Regular 100 unit/ Sodium Chloride 101 ml @ 4.45 mls/hr ER DKA PROTOCOL IV Last administered on 08/30/18at 23:51; Admin Dose 4.45 MLS/HR; Start 08/30/18 at 22:00 Miscellaneous Information (* Miscellaneous Pharmacy Order) HYPOGLYCEMIA TREATMENT HYPOGLYCEM PROTOCOL PRN XX .HYPOGLYCEMIA PROTOCOL; Start 08/30/18 at 22:00 Dextrose (D50w Syringe) 50 ml Q15M PRN IV .DECREASED GLUCOSE; Start 08/30/18 at 22:00 Dextrose (D50w Syringe) 25 ml Q15M PRN IV .DECREASED GLUCOSE; Start 08/30/18 at 22:00 Potassium Chloride/Sodium Chloride 1,000 ml @ 0 mls/hr Q0M IV Last administered on 08/30/18at 23:52; Admin Dose 250 MLS/HR; Start 08/30/18 at 23:00 Sodium Chloride 1,000 ml @ 100 mls/hr Q10H IV Last administered on 08/31/18at 11:34; Admin Dose 100 MLS/HR; Start 08/31/18 at 00:27 IV Flush (NS 3 ml) 3 ml PER PROTOCOL IV ; Start 08/31/18 at 00:30 Ondansetron HCl (Zofran Inj) 4 mg Q6H PRN IV NAUSEA/VOMITING; Start 08/31/18 at 00:30 Acetaminophen (Tylenol Tab) 650 mg Q6H PRN PO .PAIN 1-3 OR TEMP; Start 08/31/18 at 00:30 Heparin Sodium (Porcine) (Heparin (5000 Units/1ml)) 5,000 unit Q12 SC Last administered on 08/31/18at 09:15; Admin Dose 5,000 UNIT; Start 08/31/18 at 09:00 Diagnostic Test (Pha) (Accu-Chek) 1 ea 02 XX ; Start 08/31/18 at 02:00 Insulin Aspart (Novolog Insulin Pen) 3 unit WITH MEALS SC ; Start 08/31/18 at 07:55 Insulin Aspart (Novolog Insulin Pen) NOVOLOG *MODERATE* ALGORI... Q4 SC Last administered on 08/31/18at 05:24; Admin Dose 6 UNIT; Start 08/31/18 at 01:00 Multivitamins Therapeutic (Theragran) 1 tab DAILY PO Last administered on 08/31/18at 09:01; Admin Dose 1 TAB; Start 08/31/18 at 09:00 Miscellaneous Information 1 ea NOTE XX ; Start 08/31/18 at 01:00 Glucose (Glutose) 15 gm Q15M PRN PO DECREASED GLUCOSE; Start 08/31/18 at 01:00 Glucose (Glutose) 22.5 gm Q15M PRN PO DECREASED GLUCOSE; Start 08/31/18 at 01:00 Dextrose (D50w Syringe) 25 ml Q15M PRN IV DECREASED GLUCOSE; Start 08/31/18 at 01:00 Dextrose (D50w Syringe) 50 ml Q15M PRN IV DECREASED GLUCOSE; Start 08/31/18 at 01:00 Glucagon (Glucagen) 1 mg Q15M PRN IM DECREASED GLUCOSE; Start 08/31/18 at 01:00 Glucose (Glutose) 15 gm Q15M PRN BUCCAL DECREASED GLUCOSE; Start 08/31/18 at 01:00 Ceftriaxone Sodium 50 ml @ 100 mls/hr DAILY IVPB Last administered on 08/31/18at 09:02; Admin Dose 100 MLS/HR; Start 08/31/18 at 09:00 Influenza Virus Vaccine Quadrival (Fluzone) 0.5 ml ONCE ONCE IM* ; Start 09/01/18 at 10:00; Stop 09/01/18 at 10:01 Insulin Glargine (Lantus) 16 units HS SC ; Start 08/31/18 at 21:00 RICARDO SORIANO MD Aug 31, 2018 13:40
[2018-08-31] MEDS ORDERED: SODIUM PHOSPHATE 30 MMOL in SOD CHLORIDE 0.9% 250 ML IVPB ONE (14:00)
[2018-08-31] MEDS ORDERED: POTASSIUM CHLORIDE 50 ML IVPB SCH (15:00)
[2018-09-01] VITALS (10 sets, daily range): BP systolic 100–116; BP diastolic 68–76; PULSE 69–87; RESP 18–20
[2018-09-01] MEDS: POTASSIUM CHLORIDE 100 ML IVPB SCH (00:11)
[2018-09-01] MEDS: ACCU-CHEK XX SCH (02:00)
[2018-09-01] MEDS ORDERED: INSULIN ASPART [NOVOLOG] 3 ML PEN SC ONE (02:30)
[2018-09-01] MEDS: SOD CHLORIDE 0.9% 1,000 ML IV SCH ×2 (06:23→14:30)
[2018-09-01] MEDS: INSULIN ASPART [NOVOLOG] 3 ML PEN SC SCH ×7 (07:47→21:05)
[2018-09-01] MEDS: CEFTRIAXONE 1 GM/50 ML (PMX) 50 ML IVPB SCH (09:01)
[2018-09-01] MEDS: MULTIVITAMINS THERAPEUTIC TAB PO SCH (09:02)
[2018-09-01] MEDS: HEPARIN 5,000 UNIT/1 ML VIAL SC SCH ×2 (09:09→21:06)
[2018-09-01] MEDS ORDERED: POTASSIUM CHLORIDE (SR) 20 MEQ TAB PO STA (14:19)
[2018-09-01] MEDS: FLUCONAZOLE 100 MG TAB PO SCH (14:34)
--- NOTE | 2018-09-01 14:42 | PN ---
Date/Time of Note Date/Time of Note DATE: 09/01/18 TIME: 14:23 Assessment/Plan VTE Prophylaxis Risk score (from [facility])>0 risk: 2 SCD applied (from [facility]): Yes Pharmacological prophylaxis: heparin Lines/Catheters IV Catheter Type (from Nrs): Peripheral IV Urinary Cath still in place: No Assessment/Plan Assessment/Plan 1. UTI, on rocephin, narciso, dilfucan 2. DKA, resolved 3. DM, adjust insulin dosage 4. Abdominal pain, Most likely secondary to above, resolved 5. Altered mentation, most likely secondary to hepatic encephalopathy, improved 6. Chronic alcoholic liver cirrhosis 7. Hyponatremia: pseudohyponatremia from hyperglycemia 8. Hypokalemia: KCL 9. DVT prophylaxis: heparin SQ 10. Epigastric abdominal pain, protonix Result Diagram: 09/01/18 0509/01/18 0555 Results 24hrs Laboratory Tests Test 08/31/18 16:52 08/31/18 20:32 09/01/18 02:13 09/01/18 05:55 Bedside Glucose 175 286 H 308 H White Blood Count 4.0 #L Red Blood Count 4.07 L Hemoglobin 13.4 L Hematocrit 37.5 L Mean Corpuscular 92.1 Volume Mean Corpuscular 32.9 Hemoglobin Mean Corpuscular 35.7 Hemoglobin Concent Red Cell 13.3 Distribution Width Platelet Count 59 L Mean Platelet Volume 10.4 Immature 0.300 Granulocytes % Neutrophils % 54.1 Lymphocytes % 31.2 Monocytes % 12.1 H Eosinophils % 1.8 Basophils % 0.5 Nucleated Red Blood 0.0 Cells % Immature 0.010 Granulocytes # Neutrophils # 2.2 Lymphocytes # 1.2 Monocytes # 0.5 Eosinophils # 0.1 Basophils # 0.0 Nucleated Red Blood 0.0 Cells # Sodium Level 135 Potassium Level 3.0 L Chloride Level 106 Carbon Dioxide Level 21 Anion Gap 8 Blood Urea Nitrogen 11 Creatinine 0.47 L Est Glomerular > 60 Filtrat Rate mL/min Glucose Level 254 #H Calcium Level 7.9 L Phosphorus Level 2.7 Magnesium Level 1.7 Test 09/01/18 07:43 09/01/18 11:19 Bedside Glucose 219 333 H Subjective 24 Hr Interval Summary Free Text/Dictation epigastric pain Exam/Review of Systems Exam Vitals Vital Signs Date Temp Pulse Resp B/P (MAP) Pulse Ox O2 O2 Flow FiO2 Time Delivery Rate 09/01/18 72 12:28 09/01/18 97.3 20 113/70 96 Room Air 11:19 (84) Intake and Output 08/31/18 08/31/18 09/01/18 1515:00 23:00 07:00 IntakeIntake Total 1600 ml OutputOutput Total 1800 ml BalanceBalance -200 ml Constitutional: alert, oriented, well developed Psych: no complaints, nl mood/affect Head: normocephalic, atraumatic Eyes: nl conjunctiva, EOMI, nl lids ENMT: nl external ears & nose, nl lips & teeth, nl nasal mucosa & septum Neck: supple, non-tender Respiratory: clear to auscultation, normal air movement; No congested cough, No crackles/rales, No diminished breath sounds, No intercostal retraction, No labored breathing, No respirations, No tactile fremitus, No wheezing, No other Cardiovascular: regular rate and rhythm, nl pulses; No bruits, No diastolic murmur, No edema, No gallop, No irregular rhythm, No jugular venous distention (JVD), No murmurs/extra sounds, No rub, No systolic murmur, No S3, No S4, No other Gastrointestinal: soft, nl liver, spleen, other (epigastric tenderness) Musculoskeletal: nl extremities to inspection Extremities: normal pulses; No calf tenderness, No cyanosis, No clubbing, No edema, No pitting pedal edema, No palpable cord, No tenderness, No other 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, nl mental status, nl speech, nl strength Results Results 24hrs Laboratory Tests Test 08/31/18 16:52 08/31/18 20:32 09/01/18 02:13 09/01/18 05:55 Bedside Glucose 175 286 H 308 H White Blood Count 4.0 #L Red Blood Count 4.07 L Hemoglobin 13.4 L Hematocrit 37.5 L Mean Corpuscular 92.1 Volume Mean Corpuscular 32.9 Hemoglobin Mean Corpuscular 35.7 Hemoglobin Concent Red Cell 13.3 Distribution Width Platelet Count 59 L Mean Platelet Volume 10.4 Immature 0.300 Granulocytes % Neutrophils % 54.1 Lymphocytes % 31.2 Monocytes % 12.1 H Eosinophils % 1.8 Basophils % 0.5 Nucleated Red Blood 0.0 Cells % Immature 0.010 Granulocytes # Neutrophils # 2.2 Lymphocytes # 1.2 Monocytes # 0.5 Eosinophils # 0.1 Basophils # 0.0 Nucleated Red Blood 0.0 Cells # Sodium Level 135 Potassium Level 3.0 L Chloride Level 106 Carbon Dioxide Level 21 Anion Gap 8 Blood Urea Nitrogen 11 Creatinine 0.47 L Est Glomerular > 60 Filtrat Rate mL/min Glucose Level 254 #H Calcium Level 7.9 L Phosphorus Level 2.7 Magnesium Level 1.7 Test 09/01/18 07:43 09/01/18 11:19 Bedside Glucose 219 333 H Medications Medication Current Medications Potassium Chloride/Dextrose/ Sod Cl 1,000 ml @ 0 mls/hr Q0M IV ; Start 08/30/18 at 21:58 Potassium Chloride/Sodium Chloride 1,000 ml @ 0 mls/hr Q0M IV ; Start 08/30/18 at 21:58 Potassium Chloride/Dextrose/ Sod Cl 1,000 ml @ 0 mls/hr Q0M IV ; Start 08/30/18 at 21:58 Sodium Chloride 1,000 ml @ 0 mls/hr Q0M IV ; Start 08/30/18 at 21:58 Dextrose/Sodium Chloride 1,000 ml @ 0 mls/hr Q0M IV ; Start 08/30/18 at 21:58 Insulin Human Regular 100 unit/ Sodium Chloride 101 ml @ 4.45 mls/hr ER DKA PROTOCOL IV Last administered on 08/30/18at 23:51; Admin Dose 4.45 MLS/HR; Start 08/30/18 at 22:00 Miscellaneous Information (* Miscellaneous Pharmacy Order) HYPOGLYCEMIA TREATMENT HYPOGLYCEM PROTOCOL PRN XX .HYPOGLYCEMIA PROTOCOL; Start 08/30/18 at 22:00 Dextrose (D50w Syringe) 50 ml Q15M PRN IV .DECREASED GLUCOSE; Start 08/30/18 at 22:00 Dextrose (D50w Syringe) 25 ml Q15M PRN IV .DECREASED GLUCOSE; Start 08/30/18 at 22:00 Potassium Chloride/Sodium Chloride 1,000 ml @ 0 mls/hr Q0M IV Last administered on 08/30/18at 23:52; Admin Dose 250 MLS/HR; Start 08/30/18 at 23:00 Sodium Chloride 1,000 ml @ 100 mls/hr Q10H IV Last administered on 09/01/18at 06:23; Admin Dose 100 MLS/HR; Start 08/31/18 at 00:27 IV Flush (NS 3 ml) 3 ml PER PROTOCOL IV ; Start 08/31/18 at 00:30 Ondansetron HCl (Zofran Inj) 4 mg Q6H PRN IV NAUSEA/VOMITING; Start 08/31/18 at 00:30 Acetaminophen (Tylenol Tab) 650 mg Q6H PRN PO .PAIN 1-3 OR TEMP; Start 08/31/18 at 00:30 Heparin Sodium (Porcine) (Heparin (5000 Units/1ml)) 5,000 unit Q12 SC Last administered on 09/01/18at 09:09; Admin Dose 5,000 UNIT; Start 08/31/18 at 09:00 Diagnostic Test (Pha) (Accu-Chek) 1 ea 02 XX ; Start 08/31/18 at 02:00 Insulin Aspart (Novolog Insulin Pen) 3 unit WITH MEALS SC Last administered on 09/01/18at 11:25; Admin Dose 3 UNIT; Start 08/31/18 at 07:55 Multivitamins Therapeutic (Theragran) 1 tab DAILY PO Last administered on 09/01/18at 09:02; Admin Dose 1 TAB; Start 08/31/18 at 09:00 Miscellaneous Information 1 ea NOTE XX ; Start 08/31/18 at 01:00 Glucose (Glutose) 15 gm Q15M PRN PO DECREASED GLUCOSE; Start 08/31/18 at 01:00 Glucose (Glutose) 22.5 gm Q15M PRN PO DECREASED GLUCOSE; Start 08/31/18 at 01:00 Dextrose (D50w Syringe) 25 ml Q15M PRN IV DECREASED GLUCOSE; Start 08/31/18 at 01:00 Dextrose (D50w Syringe) 50 ml Q15M PRN IV DECREASED GLUCOSE; Start 08/31/18 at 01:00 Glucagon (Glucagen) 1 mg Q15M PRN IM DECREASED GLUCOSE; Start 08/31/18 at 01:00 Glucose (Glutose) 15 gm Q15M PRN BUCCAL DECREASED GLUCOSE; Start 08/31/18 at 01:00 Ceftriaxone Sodium 50 ml @ 100 mls/hr DAILY IVPB Last administered on 09/01/18at 09:01; Admin Dose 100 MLS/HR; Start 3/14/19 at 09:00 Insulin Aspart (Novolog Insulin Pen) NOVOLOG *MODERATE* ALGORI... AC MEALS AND BEDTIME SC Last administered on 09/01/18at 11:25; Admin Dose 10 UNIT; Start 08/31/18 at 17:25 Insulin Glargine (Lantus) 20 units HS SC ; Start 09/01/18 at 21:00; Status UNV Potassium Chloride (Klor-Con 20) 40 meq ONCE STAT PO ; Start 09/01/18 at 14:19; Stop 09/01/18 at 14:20; Status UNV RICARDO SORIANO MD Sep 01, 2018 14:35
[2018-09-01] MEDS ORDERED: INSULIN GLARGINE [LANTus] (100 UNITS/ML) SYG SC SCH (21:00)
[2018-09-02] VITALS (10 sets, daily range): BP systolic 108–112; BP diastolic 64–74; PULSE 69–81; RESP 18–20
[2018-09-02] MEDS: ACCU-CHEK XX SCH (01:47)
[2018-09-02] MEDS: SOD CHLORIDE 0.9% 1,000 ML IV SCH (03:46)
[2018-09-02] MEDS: PANTOPRAZOLE (EC) 40 MG TAB PO SCH (05:56)
[2018-09-02] MEDS: INSULIN ASPART [NOVOLOG] 3 ML PEN SC SCH ×7 (07:51→21:17)
[2018-09-02] MEDS: CEFTRIAXONE 1 GM/50 ML (PMX) 50 ML IVPB SCH (08:43)
[2018-09-02] MEDS: FLUCONAZOLE 100 MG TAB PO SCH (08:43)
[2018-09-02] MEDS: MULTIVITAMINS THERAPEUTIC TAB PO SCH (08:43)
[2018-09-02] MEDS: HEPARIN 5,000 UNIT/1 ML VIAL SC SCH ×2 (08:49→21:18)
--- NOTE | 2018-09-02 16:56 | PN ---
Date/Time of Note Date/Time of Note DATE: 09/02/18 TIME: 16:53 Assessment/Plan VTE Prophylaxis Risk score (from Nsg)>0 risk: 2 SCD applied (from Nsg): Yes Pharmacological prophylaxis: heparin Lines/Catheters IV Catheter Type (from Nrsg): Saline Lock Urinary Cath still in place: No Assessment/Plan Assessment/Plan 1. UTI, on rocephin, 2. DKA, resolved 3. DM, adjust insulin dosage 4. Abdominal pain, Most likely secondary to above, resolved 5. Altered mentation, most likely secondary to hepatic encephalopathy, resolved 6. Chronic alcoholic liver cirrhosis 7. Hyponatremia: pseudohyponatremia from hyperglycemia 8. Hypokalemia: KCL 9. DVT prophylaxis: heparin SQ 10. Epigastric abdominal pain, protonix Result Diagram: 09/02/18 1335 09/02/18 1335 Subjective 24 Hr Interval Summary Free Text/Dictation Patient ravenously hungry today; ate all of meals plus demanding snacks. Blood sugars consequently in 300s. Otherwise feeling well, no complaints. Exam/Review of Systems Exam Vitals Vital Signs Date Temp Pulse Resp B/P (MAP) Pulse Ox O2 O2 Flow FiO2 Time Delivery Rate 09/02/18 98.2 73 20 108/70 97 Room Air 15:38 (83) Intake and Output 09/01/18 09/01/18 09/02/18 1515:00 23:00 07:00 IntakeIntake Total 50 ml 2700 ml 900 ml OutputOutput Total 2000 ml 1100 ml BalanceBalance 50 ml 700 ml -200 ml Exam GENERAL: Well developed man lying in bed, no distress HEENT: Moist mucous membranes. Pupils equal and reactive to light. CARDIAC: S1, S2, no added sounds or murmurs. CHEST: Clear to auscultation bilaterally ABDOMEN: Soft, nontender. No guarding or rebound. EXTREMITIES: No cyanosis, clubbing.Trace edema. Skin: warm, dry, well perfused. Results Results 24hrs Laboratory Tests Test 09/01/18 17:47 09/01/18 20:51 09/02/18 01:38 09/02/18 06:36 Bedside Glucose 350 H 322 H 234 H White Blood Count 3.8 L Red Blood Count 3.94 L Hemoglobin 12.8 L Hematocrit 37.0 L Mean Corpuscular 93.9 Volume Mean Corpuscular 32.5 Hemoglobin Mean Corpuscular 34.6 Hemoglobin Concent Red Cell 13.7 Distribution Width Platelet Count 61 L Mean Platelet Volume 9.2 Immature 0.300 Granulocytes % Neutrophils % 51.1 Lymphocytes % 36.9 Monocytes % 9.3 Eosinophils % 1.6 Basophils % 0.8 Nucleated Red Blood 0.0 Cells % Immature 0.010 Granulocytes # Neutrophils # 1.9 Lymphocytes # 1.4 Monocytes # 0.4 Eosinophils # 0.1 Basophils # 0.0 Nucleated Red Blood 0.0 Cells # Test 09/02/18 07:47 09/02/18 11:17 09/02/18 13:35 Bedside Glucose 269 H 333 H White Blood Count 4.0 L Red Blood Count 3.96 L Hemoglobin 13.0 L Hematocrit 37.8 L Mean Corpuscular 95.5 Volume Mean Corpuscular 32.8 Hemoglobin Mean Corpuscular 34.4 Hemoglobin Concent Red Cell 14.0 Distribution Width Platelet Count 64 L Mean Platelet Volume 10.2 Immature 0.300 Granulocytes % Neutrophils % 55.2 Lymphocytes % 33.5 Monocytes % 9.5 Eosinophils % 1.0 Basophils % 0.5 Nucleated Red Blood 0.0 Cells % Immature 0.010 Granulocytes # Neutrophils # 2.2 Lymphocytes # 1.3 Monocytes # 0.4 Eosinophils # 0.0 Basophils # 0.0 Nucleated Red Blood 0.0 Cells # Sodium Level 131 L Potassium Level 3.4 L Chloride Level 104 Carbon Dioxide Level 18 L Anion Gap 9 Blood Urea Nitrogen 9 Creatinine 0.51 L Est Glomerular > 60 Filtrat Rate mL/min Glucose Level 378 H Calcium Level 7.9 L Phosphorus Level 3.3 Magnesium Level 1.6 L Total Bilirubin 1.0 Direct Bilirubin 0.00 Indirect Bilirubin 1.0 Aspartate Amino 151 H Transf (AST/SGOT) Alanine 55 Aminotransferase (AL T/SGPT) Alkaline Phosphatase 250 H Total Protein 6.4 Albumin 2.4 L Globulin 4.00 H Albumin/Globulin 0.60 Ratio Medications Medication Current Medications Miscellaneous Information (* Miscellaneous Pharmacy Order) HYPOGLYCEMIA TREATMENT HYPOGLYCEM PROTOCOL PRN XX .HYPOGLYCEMIA PROTOCOL; Start 08/30/18 at 22:00 Dextrose (D50w Syringe) 50 ml Q15M PRN IV .DECREASED GLUCOSE; Start 08/30/18 at 22:00 Dextrose (D50w Syringe) 25 ml Q15M PRN IV .DECREASED GLUCOSE; Start 08/30/18 at 22:00 IV Flush (NS 3 ml) 3 ml PER PROTOCOL IV ; Start 08/31/18 at 00:30 Ondansetron HCl (Zofran Inj) 4 mg Q6H PRN IV NAUSEA/VOMITING; Start 08/31/18 at 00:30 Acetaminophen (Tylenol Tab) 650 mg Q6H PRN PO .PAIN 1-3 OR TEMP; Start 08/31/18 at 00:30 Heparin Sodium (Porcine) (Heparin (5000 Units/1ml)) 5,000 unit Q12 SC Last administered on 09/02/18at 08:49; Admin Dose 5,000 UNIT; Start 08/31/18 at 09:00 Diagnostic Test (Pha) (Accu-Chek) 1 ea 02 XX ; Start 08/31/18 at 02:00 Multivitamins Therapeutic (Theragran) 1 tab DAILY PO Last administered on 09/02/18at 08:43; Admin Dose 1 TAB; Start 08/31/18 at 09:00 Miscellaneous Information 1 ea NOTE XX ; Start 08/31/18 at 01:00 Glucose (Glutose) 15 gm Q15M PRN PO DECREASED GLUCOSE; Start 08/31/18 at 01:00 Glucose (Glutose) 22.5 gm Q15M PRN PO DECREASED GLUCOSE; Start 08/31/18 at 01:0 0 Dextrose (D50w Syringe) 25 ml Q15M PRN IV DECREASED GLUCOSE; Start 08/31/18 at 01:00 Dextrose (D50w Syringe) 50 ml Q15M PRN IV DECREASED GLUCOSE; Start 08/31/18 at 01:00 Glucagon (Glucagen) 1 mg Q15M PRN IM DECREASED GLUCOSE; Start 08/31/18 at 01:00 Glucose (Glutose) 15 gm Q15M PRN BUCCAL DECREASED GLUCOSE; Start 08/31/18 at 01:00 Ceftriaxone Sodium 50 ml @ 100 mls/hr DAILY IVPB Last administered on 09/02/18at 08:43; Admin Dose 100 MLS/HR; Start 08/31/18 at 09:00 Insulin Aspart (Novolog Insulin Pen) NOVOLOG *MODERATE* ALGORI... AC MEALS AND BEDTIME SC Last administered on 09/02/18at 11:22; Admin Dose 10 UNIT; Start 08/31/18 at 17:25 Fluconazole (Diflucan) 100 mg DAILY PO Last administered on 09/02/18at 08:43; Admin Dose 100 MG; Start 09/01/18 at 14:30 Pantoprazole (Protonix Tab) 40 mg DAILY@06 PO Last administered on 09/02/18at 05:56; Admin Dose 40 MG; Start 09/02/18 at 06:00 Insulin Aspart (Novolog Insulin Pen) 10 unit WITH MEALS SC ; Start 09/02/18 at 17:55 Insulin Glargine (Lantus) 30 units HS SC ; Start 09/02/18 at 21:00 DERREK ARRIETA MD Sep 02, 2018 16:56
[2018-09-02] MEDS ORDERED: MAGNESIUM SULFATE 2 GM/50 ML 50 ML IVPB ONE (17:00)
[2018-09-02] MEDS ORDERED: POTASSIUM CHLORIDE 20 MEQ POWDER FOR ORAL SOLN PO ONE (17:00)
[2018-09-02] MEDS: INSULIN GLARGINE [LANTus] (100 UNITS/ML) SYG SC SCH (21:17)
[2018-09-03] VITALS (11 sets, daily range): BP systolic 100–117; BP diastolic 63–71; PULSE 66–80; RESP 18–20
[2018-09-03] MEDS: ACCU-CHEK XX SCH (02:00)
[2018-09-03] MEDS: PANTOPRAZOLE (EC) 40 MG TAB PO SCH (05:49)
[2018-09-03] MEDS: INSULIN ASPART [NOVOLOG] 3 ML PEN SC SCH ×7 (07:58→21:13)
[2018-09-03] MEDS: MULTIVITAMINS THERAPEUTIC TAB PO SCH (08:42)
[2018-09-03] MEDS: CEFTRIAXONE 1 GM/50 ML (PMX) 50 ML IVPB SCH (08:42)
[2018-09-03] MEDS: HEPARIN 5,000 UNIT/1 ML VIAL SC SCH ×2 (08:49→21:13)
[2018-09-03] MEDS ORDERED: POTASSIUM CHLORIDE 20 MEQ POWDER FOR ORAL SOLN PO ONE (09:00)
--- NOTE | 2018-09-03 14:04 | PN ---
Date/Time of Note Date/Time of Note DATE: 09/03/18 TIME: 14:03 Assessment/Plan VTE Prophylaxis Risk score (from Ns)>0 risk: 3 SCD applied (from Ns): Yes Pharmacological prophylaxis: NA/contraindicated Pharm contraindication: low risk/ambulating Lines/Catheters IV Catheter Type (from Nrsg): Saline Lock Urinary Cath still in place: No Assessment/Plan Assessment/Plan 1. UTI, on rocephin, 2. DKA, resolved 3. DM, adjust insulin dosage 4. Abdominal pain, Most likely secondary to above, resolved 5. Altered mentation, most likely secondary to hepatic encephalopathy, resolved 6. Chronic alcoholic liver cirrhosis 7. Hyponatremia: pseudohyponatremia from hyperglycemia 8. Hypokalemia: KCL 9. DVT prophylaxis: heparin SQ 10. Epigastric abdominal pain, protonix Dispo: Anticipate discharge in 24-48 hours Result Diagram: 09/03/18 0542 09/03/18 05 Subjective 24 Hr Interval Summary Free Text/Dictation No acute overnight events. Patient doing well. He reports still feeling fatigued and dizzy when standing; requests to stay one more day. I did walk with him about 20 feet down the hallway and he seemed fine. Exam/Review of Systems Exam Vitals Vital Signs Date Temp Pulse Resp B/P (MAP) Pulse Ox O2 O2 Flow FiO2 Time Delivery Rate 09/03/18 66 12:25 09/03/18 98.0 18 102/67 97 11:46 (79) 09/02/18 Room Air 15:38 Intake and Output 09/02/18 09/02/18 09/03/18 1515:00 23:00 07:00 IntakeIntake Total 2700 ml 1200 ml OutputOutput Total 2400 ml 2000 ml BalanceBalance 300 ml -800 ml Exam GENERAL: Well developed man lying in bed, no distress HEENT: Moist mucous membranes. Pupils equal and reactive to light. CARDIAC: S1, S2, no added sounds or murmurs. CHEST: Clear to auscultation bilaterally ABDOMEN: Soft, nontender. No guarding or rebound. EXTREMITIES: No cyanosis, clubbing.Trace edema. Skin: warm, dry, well perfused. Results Results 24hrs Laboratory Tests Test 09/02/18 17:22 09/02/18 21:04 09/03/18 03:03 09/03/18 05:42 Bedside Glucose 368 H 282 H 216 White Blood Count 4.1 L Red Blood Count 3.78 L Hemoglobin 12.2 L Hematocrit 35.6 L Mean Corpuscular 94.2 Volume Mean Corpuscular 32.3 Hemoglobin Mean Corpuscular 34.3 Hemoglobin Concent Red Cell 13.6 Distribution Width Platelet Count 58 L Mean Platelet Volume 9.1 Immature 0.500 H Granulocytes % Neutrophils % 47.4 Lymphocytes % 38.4 Monocytes % 11.5 H Eosinophils % 1.5 Basophils % 0.7 Nucleated Red Blood 0.0 Cells % Immature 0.020 Granulocytes # Neutrophils # 1.9 Lymphocytes # 1.6 Monocytes # 0.5 Eosinophils # 0.1 Basophils # 0.0 Nucleated Red Blood 0.0 Cells # Sodium Level 134 L Potassium Level 3.3 L Chloride Level 107 Carbon Dioxide Level 23 Anion Gap 4 L Blood Urea Nitrogen 9 Creatinine 0.50 L Est Glomerular > 60 Filtrat Rate mL/min Glucose Level 215 # Calcium Level 7.8 L Phosphorus Level 3.3 Magnesium Level 2.0 Test 09/03/18 07:53 09/03/18 12:00 Bedside Glucose 190 265 H Medications Medication Current Medications Miscellaneous Information (* Miscellaneous Pharmacy Order) HYPOGLYCEMIA TREATMENT HYPOGLYCEM PROTOCOL PRN XX .HYPOGLYCEMIA PROTOCOL; Start 08/30/18 at 22:00 Dextrose (D50w Syringe) 50 ml Q15M PRN IV .DECREASED GLUCOSE; Start 08/30/18 at 22:00 Dextrose (D50w Syringe) 25 ml Q15M PRN IV .DECREASED GLUCOSE; Start 08/30/18 at 22:00 IV Flush (NS 3 ml) 3 ml PER PROTOCOL IV ; Start 08/31/18 at 00:30 Ondansetron HCl (Zofran Inj) 4 mg Q6H PRN IV NAUSEA/VOMITING; Start 08/31/18 at 00:30 Acetaminophen (Tylenol Tab) 650 mg Q6H PRN PO .PAIN 1-3 OR TEMP; Start 08/31/18 at 00:30 Heparin Sodium (Porcine) (Heparin (5000 Units/1ml)) 5,000 unit Q12 SC Last administered on 09/03/18at 08:49; Admin Dose 5,000 UNIT; Start 08/31/18 at 09:00 Diagnostic Test (Pha) (Accu-Chek) 1 ea 02 XX ; Start 08/31/18 at 02:00 Multivitamins Therapeutic (Theragran) 1 tab DAILY PO Last administered on 09/03/18at 08:42; Admin Dose 1 TAB; Start 08/31/18 at 09:00 Miscellaneous Information 1 ea NOTE XX ; Start 08/31/18 at 01:00 Glucose (Glutose) 15 gm Q15M PRN PO DECREASED GLUCOSE; Start 08/31/18 at 01:00 Glucose (Glutose) 22.5 gm Q15M PRN PO DECREASED GLUCOSE; Start 08/31/18 at 01:00 Dextrose (D50w Syringe) 25 ml Q15M PRN IV DECREASED GLUCOSE; Start 08/31/18 at 01:00 Dextrose (D50w Syringe) 50 ml Q15M PRN IV DECREASED GLUCOSE; Start 08/31/18 at 01:00 Glucagon (Glucagen) 1 mg Q15M PRN IM DECREASED GLUCOSE; Start 08/31/18 at 01:00 Glucose (Glutose) 15 gm Q15M PRN BUCCAL DECREASED GLUCOSE; Start 08/31/18 at 01:00 Ceftriaxone Sodium 50 ml @ 100 mls/hr DAILY IVPB Last administered on 09/03/18at 08:42; Admin Dose 100 MLS/HR; Start 08/31/18 at 09:00 Insulin Aspart (Novolog Insulin Pen) NOVOLOG *MODERATE* ALGORI... AC MEALS AND BEDTIME SC Last administered on 09/03/18at 12:04; Admin Dose 8 UNIT; Start 08/31/18 at 17:25 Pantoprazole (Protonix Tab) 40 mg DAILY@06 PO Last administered on 09/03/18at 05:49; Admin Dose 40 MG; Start 09/02/18 at 06:00 Insulin Aspart (Novolog Insulin Pen) 10 unit WITH MEALS SC Last administered on 09/03/18at 12:04; Admin Dose 10 UNIT; Start 09/02/18 at 17:55 Insulin Glargine (Lantus) 30 units HS SC Last administered on 09/02/18at 21:17; Admin Dose 30 UNITS; Start 09/02/18 at 21:00 DERREK ARRIETA MD Sep 03, 2018 14:04
[2018-09-03] MEDS: INSULIN GLARGINE [LANTus] (100 UNITS/ML) SYG SC SCH (21:13)
[2018-09-04] VITALS (10 sets, daily range): BP systolic 114–129; BP diastolic 68–80; PULSE 63–90; RESP 18–20
[2018-09-04] MEDS: ACCU-CHEK XX SCH (01:24)
[2018-09-04] MEDS: PANTOPRAZOLE (EC) 40 MG TAB PO SCH (05:47)
[2018-09-04] MEDS: INSULIN ASPART [NOVOLOG] 3 ML PEN SC SCH ×7 (08:24→21:45)
[2018-09-04] MEDS: MULTIVITAMINS THERAPEUTIC TAB PO SCH (09:04)
[2018-09-04] MEDS: CEFTRIAXONE 1 GM/50 ML (PMX) 50 ML IVPB SCH (09:04)
[2018-09-04] MEDS: HEPARIN 5,000 UNIT/1 ML VIAL SC SCH ×2 (09:14→21:44)
[2018-09-04] MEDS ORDERED: INSU100I33 SC (10:30)
[2018-09-04] MEDS ORDERED: NOVO3I SC (10:30)
--- NOTE | 2018-09-04 10:31 | PDOCDIS ---
Discharge Instructions DIAGNOSIS Discharge Diagnosis Diabetic ketoacidosis CONDITION [id number] Patient Condition: [id number] Good HOME CARE INSTRUCTIONS: [id number] Special Diet: [id number] Consistent carbohydrate FOLLOW UP/APPOINTMENTS Follow-up Plan 1. Take insulin as prescribed. You should take 30 units long-acting insulin glargine at night and 10 units insulin aspart with meals. 2. If you skip a meal, do not take that dose of insulin. 3. See your primary care doctor in 1-2 weeks. 1. [place] la insulina segn lo prescrito. Debe mary lou 30 unidades de insulina glargina de accin prolongada por la noche y 10 unidades de insulina aspart con las comidas. 2. Si se salta fausto comida, no tome karan dosis de insulina. 3. Consulte a sommer mdico de atencin primaria en 1-2 semanas. DERREK ARRIETA MD Sep 04, 2018 10:31
--- NOTE | 2018-09-04 16:34 | PN ---
Date/Time of Note Date/Time of Note DATE: 09/04/18 TIME: 16:31 Assessment/Plan VTE Prophylaxis Risk score (from Nsg)>0 risk: 2 SCD applied (from Ns): Yes Pharmacological prophylaxis: NA/contraindicated Pharm contraindication: low risk/ambulating Lines/Catheters IV Catheter Type (from Nrsg): Saline Lock Urinary Cath still in place: No Assessment/Plan Assessment/Plan 1. UTI, s/p 5 days of ceftriaxone 2. DKA, resolved 3. DM, adjust insulin dosage 4. Abdominal pain, Most likely secondary to above, resolved 5. Altered mentation, most likely secondary to hepatic encephalopathy, resolved 6. Chronic alcoholic liver cirrhosis 7. Hyponatremia: pseudohyponatremia from hyperglycemia 8. Hypokalemia: KCL 9. DVT prophylaxis: heparin SQ 10. Epigastric abdominal pain, protonix Dispo: Medically stable for discharge on current insulin regimen. Per PT recommendations will plan for ARU evaluation. Result Diagram: 09/03/1842 09/03/18541 Subjective 24 Hr Interval Summary Free Text/Dictation No acute overnight events. Patient reports feeling forgetful. Currently planning for ARU eval per PT recommendations. Exam/Review of Systems Exam Vitals Vital Signs Date Temp Pulse Resp B/P (MAP) Pulse Ox O2 O2 Flow FiO2 Time Delivery Rate 09/04/18 Room Air 16:11 09/04/18 98.6 88 20 126/76 93 15:45 (93) Intake and Output 09/03/18 09/03/18 09/04/18 1515:00 23:00 07:00 IntakeIntake Total 2700 ml 360 ml OutputOutput Total 3400 ml 1100 ml BalanceBalance -700 ml -740 ml Exam GENERAL: Well developed man lying in bed, no distress HEENT: Moist mucous membranes. Pupils equal and reactive to light. CARDIAC: S1, S2, no added sounds or murmurs. CHEST: Clear to auscultation bilaterally ABDOMEN: Soft, nontender. No guarding or rebound. EXTREMITIES: No cyanosis, clubbing.Trace edema. Skin: warm, dry, well perfused. Results Results 24hrs Laboratory Tests Test 09/03/18 17:05 09/03/18 20:54 09/04/18 01:23 09/04/18 08:15 Bedside Glucose 239 H 210 214 143 Test 09/04/18 12:16 Bedside Glucose 320 H Medications Medication Current Medications Miscellaneous Information (* Miscellaneous Pharmacy Order) HYPOGLYCEMIA TREATMENT HYPOGLYCEM PROTOCOL PRN XX .HYPOGLYCEMIA PROTOCOL; Start 08/30/18 at 22:00 Dextrose (D50w Syringe) 50 ml Q15M PRN IV .DECREASED GLUCOSE; Start 08/30/18 at 22:00 Dextrose (D50w Syringe) 25 ml Q15M PRN IV .DECREASED GLUCOSE; Start 08/30/18 at 22:00 IV Flush (NS 3 ml) 3 ml PER PROTOCOL IV ; Start 08/31/18 at 00:30 Ondansetron HCl (Zofran Inj) 4 mg Q6H PRN IV NAUSEA/VOMITING; Start 08/31/18 at 00:30 Acetaminophen (Tylenol Tab) 650 mg Q6H PRN PO .PAIN 1-3 OR TEMP; Start 08/31/18 at 00:30 Heparin Sodium (Porcine) (Heparin (5000 Units/1ml)) 5,000 unit Q12 SC Last administered on 09/04/18at 09:14; Admin Dose 5,000 UNIT; Start 08/31/18 at 09:00 Diagnostic Test (Pha) (Accu-Chek) 1 ea 02 XX Last administered on 09/04/18at 01:24; Admin Dose 1 EA; Start 08/31/18 at 02:00 Multivitamins Therapeutic (Theragran) 1 tab DAILY PO Last administered on 09/04/18at 09:04; Admin Dose 1 TAB; Start 08/31/18 at 09:00 Miscellaneous Information 1 ea NOTE XX ; Start 08/31/18 at 01:00 Glucose (Glutose) 15 gm Q15M PRN PO DECREASED GLUCOSE; Start 08/31/18 at 01:00 Glucose (Glutose) 22.5 gm Q15M PRN PO DECREASED GLUCOSE; Start 08/31/18 at 01:00 Dextrose (D50w Syringe) 25 ml Q15M PRN IV DECREASED GLUCOSE; Start 08/31/18 at 01:00 Dextrose (D50w Syringe) 50 ml Q15M PRN IV DECREASED GLUCOSE; Start 08/31/18 at 01:00 Glucagon (Glucagen) 1 mg Q15M PRN IM DECREASED GLUCOSE; Start 08/31/18 at 01:00 Glucose (Glutose) 15 gm Q15M PRN BUCCAL DECREASED GLUCOSE; Start 08/31/18 at 01:00 Insulin Aspart (Novolog Insulin Pen) NOVOLOG *MODERATE* ALGORI... AC MEALS AND BEDTIME SC Last administered on 09/04/18 12:25; Admin Dose 10 UNIT; Start 08/31/18 at 17:25 Pantoprazole (Protonix Tab) 40 mg DAILY@06 PO Last administered on 09/04/18 05:47; Admin Dose 40 MG; Start 09/02/18 at 06:00 Insulin Aspart (Novolog Insulin Pen) 10 unit WITH MEALS SC Last administered on 09/04/18at 12:26; Admin Dose 10 UNIT; Start 09/02/18 at 17:55 Insulin Glargine (Lantus) 30 units HS SC Last administered on 09/03/18at 21:13; Admin Dose 30 UNITS; Start 09/02/18 at 21:00 DERREK ARRIETA MD Sep 04, 2018 16:34
[2018-09-04] MEDS ORDERED: INSULIN GLARGINE [LANTus] (100 UNITS/ML) SYG SC SCH (21:00)
[2018-09-05] VITALS (11 sets, daily range): BP systolic 113–142; BP diastolic 65–80; PULSE 76–89; RESP 18
[2018-09-05] MEDS: ACCU-CHEK XX SCH (02:00)
[2018-09-05] MEDS: PANTOPRAZOLE (EC) 40 MG TAB PO SCH (06:19)
[2018-09-05] MEDS: MULTIVITAMINS THERAPEUTIC TAB PO SCH (08:08)
[2018-09-05] MEDS: HEPARIN 5,000 UNIT/1 ML VIAL SC SCH ×2 (08:09→21:32)
[2018-09-05] MEDS: INSULIN ASPART [NOVOLOG] 3 ML PEN SC SCH ×7 (08:23→21:33)
--- NOTE | 2018-09-05 16:14 | PN ---
Date/Time of Note Date/Time of Note DATE: 09/05/18 TIME: 16:13 Assessment/Plan VTE Prophylaxis Risk score (from Nsg)>0 risk: 2 SCD applied (from Ns): Yes Pharmacological prophylaxis: NA/contraindicated Pharm contraindication: low risk/ambulating Lines/Catheters IV Catheter Type (from Nrsg): Saline Lock Urinary Cath still in place: No Assessment/Plan Assessment/Plan 1. UTI, s/p 5 days of ceftriaxone 2. DKA, resolved 3. DM, adjust insulin dosage 4. Abdominal pain, Most likely secondary to above, resolved 5. Altered mentation, most likely secondary to hepatic encephalopathy, resolved 6. Chronic alcoholic liver cirrhosis 7. Hyponatremia: pseudohyponatremia from hyperglycemia 8. Hypokalemia: KCL 9. DVT prophylaxis: heparin SQ 10. Epigastric abdominal pain, protonix Dispo: Medically stable for discharge on current insulin regimen. ARU eval versus discharge back to SNF. Result Diagram: 09/03/1842 09/03/18541 Subjective 24 Hr Interval Summary Free Text/Dictation Patient sleeping comfortably today. Exam/Review of Systems Exam Vitals Vital Signs Date Temp Pulse Resp B/P (MAP) Pulse Ox O2 O2 Flow FiO2 Time Delivery Rate 09/05/18 98.2 89 18 130/71 100 16:07 (90) 09/04/18 Room Air 16:11 Intake and Output 09/04/18 09/04/18 09/05/18 1515:00 23:00 07:00 IntakeIntake Total 50 ml 1200 ml 2100 ml OutputOutput Total 1600 ml 2250 ml BalanceBalance 50 ml -400 ml -150 ml Exam GENERAL: Well developed man lying in bed, no distress HEENT: Moist mucous membranes. Pupils equal and reactive to light. CARDIAC: S1, S2, no added sounds or murmurs. CHEST: Clear to auscultation bilaterally ABDOMEN: Soft, nontender. No guarding or rebound. EXTREMITIES: No cyanosis, clubbing.Trace edema. Skin: warm, dry, well perfused. Results Results 24hrs Laboratory Tests Test 09/04/18 17:16 09/04/18 21:15 09/05/18 02:37 09/05/18 08:18 Bedside Glucose 320 H 204 233 H 294 H Test 09/05/18 12:27 Bedside Glucose 149 Medications Medication Current Medications Miscellaneous Information (* Miscellaneous Pharmacy Order) HYPOGLYCEMIA TREATMENT HYPOGLYCEM PROTOCOL PRN XX .HYPOGLYCEMIA PROTOCOL; Start 08/30/18 at 22:00 Dextrose (D50w Syringe) 50 ml Q15M PRN IV .DECREASED GLUCOSE; Start 08/30/18 at 22:00 Dextrose (D50w Syringe) 25 ml Q15M PRN IV .DECREASED GLUCOSE; Start 08/30/18 at 22:00 IV Flush (NS 3 ml) 3 ml PER PROTOCOL IV ; Start 08/31/18 at 00:30 Ondansetron HCl (Zofran Inj) 4 mg Q6H PRN IV NAUSEA/VOMITING; Start 08/31/18 at 00:30 Acetaminophen (Tylenol Tab) 650 mg Q6H PRN PO .PAIN 1-3 OR TEMP; Start 08/31/18 at 00:30 Heparin Sodium (Porcine) (Heparin (5000 Units/1ml)) 5,000 unit Q12 SC Last administered on 09/05/18at 08:09; Admin Dose 5,000 UNIT; Start 08/31/18 at 09:00 Diagnostic Test (Pha) (Accu-Chek) 1 ea 02 XX Last administered on 09/04/18at 01:24; Admin Dose 1 EA; Start 08/31/18 at 02:00 Multivitamins Therapeutic (Theragran) 1 tab DAILY PO Last administered on 09/05/18at 08:08; Admin Dose 1 TAB; Start 08/31/18 at 09:00 Miscellaneous Information 1 ea NOTE XX ; Start 08/31/18 at 01:00 Glucose (Glutose) 15 gm Q15M PRN PO DECREASED GLUCOSE; Start 08/31/18 at 01:00 Glucose (Glutose) 22.5 gm Q15M PRN PO DECREASED GLUCOSE; Start 08/31/18 at 01:00 Dextrose (D50w Syringe) 25 ml Q15M PRN IV DECREASED GLUCOSE; Start 08/31/18 at 01:00 Dextrose (D50w Syringe) 50 ml Q15M PRN IV DECREASED GLUCOSE; Start 08/31/18 at 01:00 Glucagon (Glucagen) 1 mg Q15M PRN IM DECREASED GLUCOSE; Start 08/31/18 at 01:00 Glucose (Glutose) 15 gm Q15M PRN BUCCAL DECREASED GLUCOSE; Start 08/31/18 at 01:00 Insulin Aspart (Novolog Insulin Pen) NOVOLOG *MODERATE* ALGORI... AC MEALS AND BEDTIME SC Last administered on 09/05/18at 12:40; Admin Dose 2 UNIT; Start 08/31/18 at 17:25 Pantoprazole (Protonix Tab) 40 mg DAILY@06 PO Last administered on 09/05/18at 06:19; Admin Dose 40 MG; Start 09/02/18 at 06:00 Insulin Aspart (Novolog Insulin Pen) 15 unit WITH MEALS SC Last administered on 09/05/18at 12:42; Admin Dose 15 UNIT; Start 09/05/18 at 11:50 Insulin Glargine (Lantus) 50 units HS SC ; Start 09/05/18 at 21:00 DERREK ARRIETA MD Sep 05, 2018 16:14
[2018-09-05] MEDS ORDERED: INSULIN GLARGINE [LANTus] (100 UNITS/ML) SYG SC SCH (21:00)
[2018-09-06 01:53] VITALS: BP 138/77; PULSE 76; RESP 18
[2018-09-06] MEDS: ACCU-CHEK XX SCH (02:16)
[2018-09-06] MEDS: PANTOPRAZOLE (EC) 40 MG TAB PO SCH (05:53)
[2018-09-06 07:37] VITALS: BP 138/78; PULSE 59; RESP 16
[2018-09-06] MEDS: INSULIN ASPART [NOVOLOG] 3 ML PEN SC SCH ×6 (08:20→17:44)
[2018-09-06] MEDS: HEPARIN 5,000 UNIT/1 ML VIAL SC SCH (08:23)
[2018-09-06] MEDS ORDERED: CALCIUM CARBONATE 500 MG CHEW TAB PO PRN (11:00)
[2018-09-06] MEDS: MULTIVITAMINS THERAPEUTIC TAB PO SCH (12:52)
[2018-09-06 13:34] VITALS: BP 120/71; PULSE 78; RESP 16
--- NOTE | 2018-09-06 14:48 | PN ---
Date/Time of Note Date/Time of Note DATE: 09/06/18 TIME: 14:47 Assessment/Plan VTE Prophylaxis Risk score (from Nsg)>0 risk: 1 SCD applied (from Nsg): Yes Pharmacological prophylaxis: NA/contraindicated Pharm contraindication: low risk/ambulating Lines/Catheters IV Catheter Type (from Nrsg): Saline Lock Urinary Cath still in place: No Assessment/Plan Assessment/Plan 1. UTI, s/p 5 days of ceftriaxone 2. DKA, resolved 3. DM, adjust insulin dosage 4. Abdominal pain, Most likely secondary to above, resolved 5. Altered mentation, most likely secondary to hepatic encephalopathy, resolved 6. Chronic alcoholic liver cirrhosis 7. Hyponatremia: pseudohyponatremia from hyperglycemia 8. Hypokalemia: KCL 9. DVT prophylaxis: heparin SQ 10. Epigastric abdominal pain, protonix Dispo: Medically stable for discharge on current insulin regimen. Patient is safe to return home but would benefit from a few days at SNF. Result Diagram: 09/03/18 0542 09/03/1842 Subjective 24 Hr Interval Summary Free Text/Dictation No acute overnight events. Patient doing well, no complaints except mild acid reflux type pain relieved by calcium carbonate Exam/Review of Systems Exam Vitals Vital Signs Date Temp Pulse Resp B/P (MAP) Pulse Ox O2 O2 Flow FiO2 Time Delivery Rate 09/06/18 97.8 78 16 120/71 98 13:34 (87) 09/04/18 Room Air 16:11 Intake and Output 09/05/18 09/05/18 09/06/18 1515:00 23:00 07:00 IntakeIntake Total 820 ml 360 ml OutputOutput Total 800 ml 2025 ml 1400 ml BalanceBalance -800 ml -1205 ml -1040 ml Exam GENERAL: Well developed man sitting in chair, no distress HEENT: Moist mucous membranes. Pupils equal and reactive to light. CARDIAC: S1, S2, no added sounds or murmurs. CHEST: Clear to auscultation bilaterally ABDOMEN: Soft, nontender. No guarding or rebound. EXTREMITIES: No cyanosis, clubbing.Trace edema. Skin: warm, dry, well perfused. Results Results 24hrs Laboratory Tests Test 09/05/18 17:35 09/05/18 21:24 09/06/18 02:07 09/06/18 08:16 Bedside Glucose 103 172 227 H 142 Test 09/06/18 12:50 Bedside Glucose 150 Medications Medication Current Medications Miscellaneous Information (* Miscellaneous Pharmacy Order) HYPOGLYCEMIA TREATMENT HYPOGLYCEM PROTOCOL PRN XX .HYPOGLYCEMIA PROTOCOL; Start 08/30/18 at 22:00 Dextrose (D50w Syringe) 50 ml Q15M PRN IV .DECREASED GLUCOSE; Start 08/30/18 at 22:00 Dextrose (D50w Syringe) 25 ml Q15M PRN IV .DECREASED GLUCOSE; Start 08/30/18 at 22:00 IV Flush (NS 3 ml) 3 ml PER PROTOCOL IV ; Start 08/31/18 at 00:30 Ondansetron HCl (Zofran Inj) 4 mg Q6H PRN IV NAUSEA/VOMITING; Start 08/31/18 at 00:30 Acetaminophen (Tylenol Tab) 650 mg Q6H PRN PO .PAIN 1-3 OR TEMP; Start 08/31/18 at 00:30 Heparin Sodium (Porcine) (Heparin (5000 Units/1ml)) 5,000 unit Q12 SC Last administered on 09/06/18at 08:23; Admin Dose 5,000 UNIT; Start 08/31/18 at 09:00 Diagnostic Test (Pha) (Accu-Chek) 1 ea 02 XX Last administered on 09/06/18at 02:16; Admin Dose 1 EA; Start 08/31/18 at 02:00 Multivitamins Therapeutic (Theragran) 1 tab DAILY PO Last administered on 09/06/18at 12:52; Admin Dose 1 TAB; Start 08/31/18 at 09:00 Miscellaneous Information 1 ea NOTE XX ; Start 08/31/18 at 01:00 Glucose (Glutose) 15 gm Q15M PRN PO DECREASED GLUCOSE; Start 08/31/18 at 01:00 Glucose (Glutose) 22.5 gm Q15M PRN PO DECREASED GLUCOSE; Start 08/31/18 at 01:00 Dextrose (D50w Syringe) 25 ml Q15M PRN IV DECREASED GLUCOSE; Start 08/31/18 at 01:00 Dextrose (D50w Syringe) 50 ml Q15M PRN IV DECREASED GLUCOSE; Start 08/31/18 at 01:00 Glucagon (Glucagen) 1 mg Q15M PRN IM DECREASED GLUCOSE; Start 08/31/18 at 01:00 Glucose (Glutose) 15 gm Q15M PRN BUCCAL DECREASED GLUCOSE; Start 08/31/18 at 01:00 Insulin Aspart (Novolog Insulin Pen) NOVOLOG *MODERATE* ALGORI... AC MEALS AND BEDTIME SC Last administered on 09/06/18 12:55; Admin Dose 2 UNIT; Start 08/31/18 at 17:25 Pantoprazole (Protonix Tab) 40 mg DAILY@06 PO Last administered on 09/06/18 05:53; Admin Dose 40 MG; Start 09/02/18 at 06:00 Insulin Aspart (Novolog Insulin Pen) 15 unit WITH MEALS SC Last administered on 09/06/18 12:57; Admin Dose 15 UNIT; Start 09/05/18 at 11:50 Insulin Glargine (Lantus) 50 units HS SC Last administered on 09/05/18 21:34; Admin Dose 50 UNITS; Start 09/05/18 at 21:00 Calcium Carbonate (Tums) 500 mg Q6H PRN PO dyspepsia Last administered on 09/06/18at 14:20; Admin Dose 500 MG; Start 09/06/18 at 11:00 DERREK ARRIETA MD Sep 06, 2018 14:48
[2018-09-06 17:29] VITALS: BP 133/80; PULSE 70; RESP 18
--- NOTE | 2018-09-07 15:33 | DS ---
Date/Time of Note Date/Time of Note DATE: 09/07/18 TIME: 15:31 Discharge Summary Admission/Discharge Info Admit Date/Time Aug 30, 2018 at 23:23 Discharge Date/Time Sep 06, 2018 at 18:20 Discharge Diagnosis Diabetic ketoacidosis Patient Condition: Good Hx of Present Illness This is a 52-year-old male with a history of decompensated cirrhosis who was brought to ER complaining of epigastric abdominal pain and headache. Patient appears somehow weak and also showing signs of confusion. Head CT in the ER was negative for acute findings. Lab shows multiple abnormalities including a blood glucose of 600 with a bicarb of 20 and anion gap 16 and 1+ ketone and urine, sodium 131. Patient was started on a DKA protocol in the ER. Repeat lab shows resolution of acidosis and gap is closed. Patient was transitioned to subcutaneous insulin and admitted to telemetry. Hospital Course The patient was in the ICU very briefly on DKA protocol. After transfer to med/surg he remained in good condition. He did have very uncontrolled diabetes and required almost doubling of his previous dose of insulin. Transferred to [facility]. Home Meds Active Scripts Insulin Aspart* (Novolog Insulin Pen*) 100 Unit/Ml Soln, 10 UNIT SC WITH MEALS, #30 EA Prov:DERREK ARRIETA MD 09/04/18 Insulin Glargine,Hum.rec.anlog (Basaglar Kwikpen U-100) 100 Unit/1 Ml Insuln.pen, 30 UNIT SC QHS, #30 EA 3 Refills Prov:DERREK ARRIETA MD 09/04/18 Multivitamin (MULTI VITAMIN DAILY) 1 Each Tablet, 1 TAB PO DAILY, #30 TAB Prov:MANA TRENT 07/13/18 Thiamine* (Thiamine*) 100 Mg Tablet, 100 MG PO DAILY, #30 TAB Prov:MANA TRENT 07/13/18 Folic Acid* (Folic Acid*) 1 Mg Tablet, 1 MG PO DAILY, #30 TAB Prov:MANA TRENT 07/13/18 Spironolactone* (Aldactone*) 25 Mg Tablet, 25 MG PO DAILY for 30 Days, TAB Prov:MANA TRENT 07/13/18 Propranolol Hcl* (Propranolol Hcl*) 10 Mg Tablet, 10 MG PO BID for 30 Days, TAB Prov:MANA TRENT 07/13/18 Reported Medications Lactulose* (Lactulose*) 20 Gm/30 Ml Solution, 45 ML PO Q6H, ML 08/30/18 Follow-up Plan 1. Take insulin as prescribed. You should take 30 units long-acting insulin glargine at night and 10 units insulin aspart with meals. 2. If you skip a meal, do not take that dose of insulin. 3. See your primary care doctor in 1-2 weeks. 1. Angelica la insulina segn lo prescrito. Debe mary lou 30 unidades de insulina glargina de accin prolongada por la noche y 10 unidades de insulina aspart con las comidas. 2. Si se salta fausto comida, no tome karan dosis de insulina. 3. Consulte a sommer mdico de atencin primaria en 1-2 semanas. Primary Care Provider Not On Staff Doctor Time spent on discharge: > 30 minutes Pending Labs Laboratory Tests Test 09/06/18 17:41 Bedside Glucose 126 mg/dL (70-220) DERREK ARRIETA MD Sep 07, 2018 15:33
== END 2018-09-06 18:20 | DRG 638 ==
LOC: E/R 17:30 → TEL 23:23 → 2NE 09-05 22:33
PROVIDERS: ADMIT Internal Medicine; ATTEND Internal Medicine
DX: E11.10 Type 2 diabetes mellitus with ketoacidosis without coma (principal); N39.0 Urinary tract infection, site not specified; E87.1 Hypo-osmolality and hyponatremia; E83.42 Hypomagnesemia; K70.30 Alcoholic cirrhosis of liver without ascites; E87.6 Hypokalemia; K70.40 Alcoholic hepatic failure without coma
CPT/HCPCS: 36415; 70450; 71045; 80048; 80053; 81001; 82140; 82803; 82962; 83036; 83690; 83735; 84100; 84484; 85025; 85610; 85730; 87086; 90686; 93005; 96360; 96361; 97116; 97161; 97530; J0696; J1644; J1815; J1817; J3480; J7030; J7040; J7050; J7120

== ENCOUNTER 2019-01-20 11:48 | Inpatient (IN) | payer BC ==
[~2019-01-20] VITALS: Ht 157.5 cm; Wt 59.6 kg
[~2019-01-20 11:48] MED LIST changes: -PANT40TA4 PO; -RIFA550T4 PO; -SIME80TA16 PO
[2019-01-20 11:51] VITALS: Ht 157.5 cm; Wt 59.6 kg
[2019-01-20] MEDS ORDERED: SOD CHLORIDE 0.9% 1,000 ML IV STA (11:55)
--- NOTE | 2019-01-20 12:29 | ERD ---
ER Documentation Chief Complaint Chief Complaint dizzy & fell in house last night, visible bruise on forehead HPI This is a 53-year-old male with a history of insulin-dependent diabetes and liver cirrhosis secondary to alcohol abuse however the patient states he has not consumed alcohol for over 2 years. Yesterday evening the patient stated he was in his home and felt very dizzy and lightheaded. He states he had a brief transient loss of consciousness with loss of postural tone and complete spontaneous recovery within several seconds. When the patient awoke he had fallen and hit the front of his head and is complaining of a headache and neck pain. He states he has a history of gxs-cwepbss-tsbzohswl diabetes mellitus and believes his sugar could have been low but does not know if that was the result of his fall as he did not check his sugar after he awoke. He was able to sleep comfortably but when he awoke this morning he noticed a significant amount of swelling over his left forehead and neck pain. He denies any numbness or weakness of his upper or lower extremities. He is able to ambulate without any difficulty. The patient lives alone in a motor home and walked into the emergency department by himself. He states he does not remember how he got here. He states his been much more confused since the fall. During this time the patient indicated that he felt he is more confused than normal. He has had no hemoptysis hematemesis or melanotic stools. ROS All systems reviewed and are negative except as per history of present illness. Medications Home Meds Reported Medications Insulin Aspart* (Novolog Insulin Pen*) 100 Unit/Ml Soln, 4 UNIT SC WITH MEALS, EA 01/20/19 Insulin Glargine,Hum.rec.anlog (Basaglar Kwikpen U-100) 100 Unit/1 Ml Insuln.pen, 18 UNIT SC QHS, EA 01/20/19 Lactulose* (Lactulose*) 20 Gm/30 Ml Solution, 45 ML PO DAILY, ML 01/20/19 Discontinued Reported Medications Lactulose* (Lactulose*) 20 Gm/30 Ml Solution, 45 ML PO Q6H, ML 08/30/18 Discontinued Scripts Insulin Aspart* (Novolog Insulin Pen*) 100 Unit/Ml Soln, 10 UNIT SC WITH MEALS, #30 EA Prov:DERREK ARRIETA MD 09/04/18 Insulin Glargine,Hum.rec.anlog (Javidaglar Axelikpen U-100) 100 Unit/1 Ml Insuln.pen, 30 UNIT SC QHS, #30 EA 3 Refills Prov:DERREK ARRIETA MD 09/04/18 Multivitamin (MULTI VITAMIN DAILY) 1 Each Tablet, 1 TAB PO DAILY, #30 TAB Prov:MANA TRENT. 07/13/18 Thiamine* (Thiamine*) 100 Mg Tablet, 100 MG PO DAILY, #30 TAB Prov:MANA TRENT. 07/13/18 Folic Acid* (Folic Acid*) 1 Mg Tablet, 1 MG PO DAILY, #30 TAB Prov:MANA TRENT. 07/13/18 Spironolactone* (Aldactone*) 25 Mg Tablet, 25 MG PO DAILY for 30 Days, TAB Prov:MANA TRENT M. 07/13/18 Propranolol Hcl* (Propranolol Hcl*) 10 Mg Tablet, 10 MG PO BID for 30 Days, TAB Prov:MANA TRENT. 07/13/18 Allergies Allergies: Coded Allergies: No Known Allergy (Unverified , 01/20/19) PMhx/Soc History of Surgery: No Anesthesia Reaction: No Hx Neurological Disorder: No Hx Respiratory Disorders: No Hx Cardiac Disorders: No Hx Psychiatric Problems: No Hx Miscellaneous Medical Probl: Yes (pls see EMR) Hx Alcohol Use: No Hx Substance Use: No Hx Tobacco Use: No Physical Exam Vitals Vital Signs Date Temp Pulse Resp B/P (MAP) Pulse Ox O2 O2 Flow FiO2 Time Delivery Rate 01/20/19 98.5 105 18 99/54 (69) 95 11:51 Physical Exam Constitutional:Well-developed. Well-nourished. HEENT:Normocephalic. Mid forehead hematoma with abrasion of the skin. Blood present within the oropharynx due to a superficial laceration on the left side of the patient's proximal tongue. Poor oral dentition.Pupils were equal round reactive to light. Moist mucous membranes.No tonsillar exudates. Scleral icterus. Neck: No nuchal rigidity. No lymphadenopathy. Posterior cervical spine tenderness over C3-C4. No Step-offs. Respiratory: Not using accessory muscles of respiration.Lungs were clear to auscultation bilaterally. No rhonchi. No rales. No wheezing. Cardiovascular: Regular rate regular rhythm.No murmurs. No rubs were appreciated.S1, S2 normal. Distal pulses are palpable 2+ bilaterally. GI: Abdomen was soft. Nontender. Non Distended. No pulsatile abdominal masses or bruits. No rebound. No guarding. Bowel sounds were present and normal. Muscle skeletal: Full range of motion of both the upper and lower extremities bilaterally.Normal muscle tone.No assymetrical calf tenderness or swelling. Lower extremities are of equal length and symmetrical with no internal or external rotation. Skin: Jaundice. No petechia, no purpura. No lesions on the palms or the soles of the feet. No maculopapular rash. NEURO: Patient was alert, awake, orientated x3.No facial droop. Gait observed and normal with no ataxia.Speech had regular rate and rhythm. No focal neuro logical deficits. Result Diagram: 01/20/19 1214 01/20/19 1214 Results 24 hrs Laboratory Tests Test 01/20/19 12:13 01/20/19 12:14 Prothrombin Time 22.3 Sec Prothrombin Time Ratio 1.7 INR International Normalized Ratio 1.95 Activated Partial Thromboplast Time 40.5 Sec White Blood Count 10.9 10^3/ul Red Blood Count 3.03 10^6/ul Hemoglobin 10.2 g/dl Hematocrit 29.5 % Mean Corpuscular Volume 97.4 fl Mean Corpuscular Hemoglobin 33.7 pg Mean Corpuscular Hemoglobin Concent 34.6 g/dl Red Cell Distribution Width 13.4 % Platelet Count 69 10^3/UL Mean Platelet Volume 9.7 fl Immature Granulocytes % 0.500 % Neutrophils % 91.2 % Lymphocytes % 3.7 % Monocytes % 4.2 % Eosinophils % 0.0 % Basophils % 0.4 % Nucleated Red Blood Cells % 0.0 /100WBC Immature Granulocytes # 0.050 10^3/ul Neutrophils # 10.0 10^3/ul Lymphocytes # 0.4 10^3/ul Monocytes # 0.5 10^3/ul Eosinophils # 0.0 10^3/ul Basophils # 0.0 10^3/ul Nucleated Red Blood Cells # 0.0 10^3/ul Sodium Level 132 mmol/L Potassium Level 3.6 mmol/L Chloride Level 96 mmol/L Carbon Dioxide Level 25 mmol/L Anion Gap 11 Blood Urea Nitrogen 19 mg/dl Creatinine 0.59 mg/dl Est Glomerular Filtrat Rate mL/min > 60 mL/min Glucose Level 216 mg/dl Calcium Level 7.8 mg/dl Total Bilirubin 6.3 mg/dl Direct Bilirubin 4.00 mg/dl Indirect Bilirubin 2.3 mg/dl Aspartate Amino Transf (AST/SGOT) 147 IU/L Alanine Aminotransferase (ALT/SGPT) 69 IU/L Alkaline Phosphatase 186 IU/L Total Protein 5.5 g/dl Albumin 2.1 g/dl Globulin 3.40 g/dl Albumin/Globulin Ratio 0.61 Salicylates Level < 1.0 mg/dl Acetaminophen Level < 10.0 ug/ml Ethyl Alcohol Level 25.0 mg/dl Current Medications Medications Dose Sig/Ary Start Time Status Last (Trade) Ordered Route PRN Stop Time Admin Dose Reason Admin Sodium 1,000 ml @ Q1H STAT 01/20/19 DC 01/20/19 Chloride 1,000 mls/hr IV 11:55 01/20/19 12:17 12:54 Diphtheria/ 0.5 ml ONCE ONCE 01/20/19 DC 01/20/19 Tetanus/Acell IM* 12:30 01/20/19 12:19 Pertussis 12:31 (Adacel) Procedures/MDM The patient presented to the emergency department with a transient loss of consciousness with loss of postural tone, suggestive of a syncope episode. The differential diagnosis of syncope is vast but my workup considered common benign disorders to life-threatening processes. Therefore my differential diagnosis included but was not limited to reflex-mediated syncope such as vasovagal or carotid sinus syncope from coughing, sneezing, micturition, or GI stimulation (eg, defecation). Other etiologies in my workup included orthostatic hypotension which could cause syncope from an abrupt drop in venous return to heart from volume depletion. An EKG and cardiac enzymes were obtained to rule out cardiac arrhythmias or ischemia. Cardiopulmonary disease such as valvular disease, hypertrophic cardiomyopathy, pericardial tamponade, or pulmonary embolism were considered as a factor causing the patients syncope episode. The patient had no difference in blood pressure in both arms that could suggest aortic dissection or subclavian steal syndrome. Rectal exam was negative for fecal occult blood that could suggest GI bleeding. Ancillary laboratory work was obtained to evaluate for metabolic or electrolyte abnormalities. The patient had no witnessed brief tonic movements that could suggest postictal confusion. The patient was placed on a box turner, continuous pulse oximetry and IV access established by nursing staff. Patient immediately had suctioning performed of the oropharynx by myself and I was able to confirm that there was no hematemesis but rather blood present within the oropharynx from a superficial laceration to the left side of the patient's tongue. It appears that when the patient had his syncope episode he cut his tongue is a very poor oral dentition with chronically cracked dentition of the lower and upper molars. 12 Lead EKG tracing ordered and reviewed by myself showed: Normal sinus rhythm of 98 bpm and no arrhythmia. UT interval normal. QRS duration normal. No ST segment elevation No ST segment depression. No changes consistent with acute ischemia. The patient was hypotensive and received a bolus of normal saline with resolution of the patient's hypotension. This likely was a result of clinical dehydration. I did obtain a CT scan of the patient's neck utilizing the Nexus criteria. There is no underlying cervical spine fracture. The patient has a history of li gaudencio cirrhosis and high risk factor for subdural hematoma and given his scalp hematoma with a headache I did feel the patient required a CT scan of his head. This was reviewed by the radiologist myself and there is no intracerebral hemorrhage mass-effect or midline shift. The patient's wound was irrigated using normal saline. There was no evidence of debris or foreign body. Kerlix dressing and topical antimicrobial gel was applied to the wound. The patient has scleral icterus and jaundice. The patient had significant elevation of his bilirubin which was 6.3. Direct bilirubin was 4.0. Indirect bilirubin was 2.3. I reviewed the patient's ancillary laboratory work from August 2018 all of which indicated at that time his bilirubin panel was within normal limits. I indicated to the patient that I did feel that he would benefit from observation to the hospital for further management into the worsening of his liver cirrhosis and thrombocytopenia. The patient's bleeding inside his arabella pharynx did subside with surgery seal placed over the tongue laceration The patient was alert awake oriented to person place but not to time. Upon multiple repeat examinations in the emergency room the patient appeared to be more confused. He now was experiencing visual hallucinations. I was concerned for hepatic encephalopathy and have added on an ammonia level this time as well as urine cultures and blood cultures. The patient's abdomen was benign with no fluid thrill or signs of tense ascites. Therefore I was not concerned for spontaneous bacterial peritonitis. The patient will be admitted to the hospitalist Dr. Arrieta. The patient will go to the telemetry service. Departure Diagnosis: Primary Impression: Acute head injury Encounter type: initial encounter Qualified Codes: S09.90XA - Unspecified injury of head, initial encounter Additional Impressions: Sprain of cervical neck Encounter type: initial encounter Qualified Codes: S13.9XXA - Sprain of joints and ligaments of unspecified parts of neck, initial encounter Hyperbilirubinemia Thrombocytopenia Hepatic encephalopathy Condition: Serious RHYS MORTENSEN MD Jan 20, 2019 12:23
[2019-01-20] MEDS ORDERED: DIPHTH/TET/ACEL PERTUSS (ADULT) 0.5 ML VIAL IM* ONE (12:30)
[2019-01-20] MEDS ORDERED: ONDANSETRON 4 MG INJ IV PRN ×2 (14:00→15:30)
[2019-01-20] MEDS ORDERED: ACETAMINOPHEN 325 MG TAB PO PRN ×2 (14:00→15:30)
[2019-01-20] MEDS ORDERED: NACL 0.9% 3 ML SYG IV SCH (15:30)
--- NOTE | 2019-01-20 15:45 | HP ---
Date/Time of Note Date/Time of Note DATE: 01/20/19 TIME: 15:32 Assessment/Plan VTE Prophylaxis SCD applied (from Nsg): Yes Pharmacological prophylaxis: NA/contraindicated Pharm contraindication: low risk/ambulating Lines/Catheters IV Catheter Type (from Nrsg): Saline Lock Assessment/Plan Assessment/Plan 53 yo man with T2DM and alcoholic cirrhosis presents with syncope and fall; dehydrated, possible UTI. #Syncope - Likely due to dehydration from recent gastroenteritis and inadequate water intake; also recent alcohol in the setting of cirrhosis. - Also possible UTI. - Admit to tele for at least 24 hrs cardiac monitoring. - No red flags for underlying cardiac or neurologic issues. #Fall - s/p forehead trauma. CT negative for hematoma. - Wound care. #UTI - Complains of burning dysuria. UA with leuk esterase - Pending urine culture - Ceftriaxone daily. #Diabetes - Cont home insulin regimen, and sliding scale - Diabetic diet #Cirrhosis - Lactulose for hepatic encephalopathy - I encouraged alcohol cessation. DVT: SCDs GI: None Result Diagram: 01/20/19 1214 01/20/19 1214 HPI/ROS Admit Date/Time Admit Date/Time 20 December 2018 Hx of Present Illness Mr. Leiva is a 53 yo man with insulin-dependent type II diabetes and alcohol ic cirrhosis who presents with syncope and fall. He was in his usual state of health until about 3 days ago, when he had a day of acute nausea and vomiting. This self-resolved. Also had intermittent burning dysuria the last few days. Last night he was feeling confused and dizzy. This morning he got up and when he was leaving the house he suddenly felt dizzy again, had leg weakness, lost consciousness, and fell. He struck his forehead. He admits that he drank "half a cup" of beer this morning because "there was no water in the RV". Of note the patient was hospitalized on 08/2018 at [facility] for DKA and dehydration. He remained in the hospital very fatigued for almost a week before being discharged to [facility]. He spent another month at that SNF before finally going home. He had been doing well at home, no hospitalizations until now. In the ED he was afebrile, tachy to 105, hypotensive to 99/54. Labs notable for mild anemia to 10.2 (was 12.2 in August). CT head and neck negative for fracture, bleed or subluxation. ROS He denies recent fever, chills, weight loss, anorexia, vision changes, headache, vertigo, dysphagia, chest pain/pressure/palpitations, dyspnea, productive cough, abdominal pain, hematemesis, melena, hematochezia. PMH/Family/Social Past Medical History Insulin-dependent diabetes mellitus type II Alcoholic cirrhosis Medications Current Medications Ondansetron HCl (Zofran Inj) 4 mg ER BRIDGE PRN IV NAUSEA/VOMITING; Start 01/20/19 at 14:00; Stop 01/21/19 at 13:59 Acetaminophen (Tylenol Tab) 650 mg ER BRIDGE PRN PO .MILD PAIN 1-3 OR TEMP; Start 01/20/19 at 14:00; Stop 01/21/19 at 13:59 Coded Allergies: No Known Allergy (Unverified , 01/20/19) Past Surgical History Past Surgical Hx: no surgical history, other Family History Significant Family History: diabetes Social History Alcohol Use: occasionally (drank a beer the morning of admission.) Smoking Status: Never smoker Drug Use: none Exam/Review of Systems Vital Signs Vitals Vital Signs Date Temp Pulse Resp B/P (MAP) Pulse Ox O2 O2 Flow FiO2 Time Delivery Rate 01/20/19 97 18 136/85 99 Room Air 15:17 (102) 01/20/19 98.5 11:51 Exam Exam Gen: Well appearing, fatigued man supine in gurney in no distress. Eyes: PERRL, mild icterus HEENT: Forehead bandaged. L eye slightly swollen. Moist mucous membranes, clear oropharynx Neck: Supple, no lymphadenopathy, no JVD Card: Regular rate and rhythm, no murmurs Pulm: Clear to auscultation bilaterally. Abd: Soft, slightly tender to deep palpation, nondistended, not tympanic. Normoactive bowel sounds. Ext: No cyanosis/clubbing/edema. Skin: No jaundice. Warm, dry, well perfused. DERREK ARRIETA MD Jan 20, 2019 15:45
[2019-01-20] MEDS ORDERED: DEXTROSE 50% 50 ML SYRINGE IV PRN (16:00)
[2019-01-20] MEDS ORDERED: GLUCAGON 1 MG INJ IM PRN (16:00)
[2019-01-20] MEDS ORDERED: GLUCOSE GEL 15 GRAM TUBE BUCCAL PRN (16:00)
[2019-01-20] MEDS ORDERED: GLUCOSE GEL 15 GRAM TUBE PO PRN ×2 (16:00)
[2019-01-20] MEDS: CEFTRIAXONE 1 GM/50 ML (PMX) 50 ML IVPB SCH (16:07)
[2019-01-20 17:50] VITALS: BP 125/73; PULSE 84; RESP 18
[2019-01-20] MEDS: INSULIN ASPART [NOVOLOG] 3 ML PEN SC SCH ×3 (18:00→21:00)
[2019-01-20] MEDS: CALCIUM CARBONATE 500 MG CHEW TAB PO SCH (19:00)
[2019-01-20 19:29] VITALS: BP 99/57; PULSE 78; RESP 18
[2019-01-20] MEDS ORDERED: INSULIN GLARGINE [LANTus] (100 UNITS/ML) SYG SC SCH (20:00)
[2019-01-20] MEDS: DEXTROSE 50% 50 ML SYRINGE IV PRN ×2 (21:28→23:12)
[2019-01-21 00:05] VITALS: BP 116/67; PULSE 69; RESP 18
[2019-01-21] MEDS ORDERED: DEXTROSE 5%-0.45% NACL 1,000 ML IV SCH (00:30)
[2019-01-21] MEDS: DEXTROSE 50% 50 ML SYRINGE IV PRN (01:48)
[2019-01-21] MEDS: ACCU-CHEK XX SCH (01:53)
[2019-01-21 03:54] VITALS: BP 108/64; PULSE 73; RESP 18
[2019-01-21 07:28] VITALS: BP 112/75; PULSE 75; RESP 18
[2019-01-21] MEDS: INSULIN ASPART [NOVOLOG] 3 ML PEN SC SCH ×7 (07:58→22:34)
[2019-01-21] MEDS: CALCIUM CARBONATE 500 MG CHEW TAB PO SCH ×3 (08:48→17:19)
[2019-01-21] MEDS: LACTULOSE 30ML CUP PO SCH (08:53)
[2019-01-21] MEDS ORDERED: THIAMINE 200 MG INJ IV SCH ×2 (09:00→13:00)
[2019-01-21] MEDS ORDERED: MAGNESIUM SULFATE 2 GM/50 ML 50 ML IVPB ONE (09:00)
[2019-01-21] MEDS ORDERED: POTASSIUM CHLORIDE 20 MEQ POWDER FOR ORAL SOLN PO ONE (09:00)
--- NOTE | 2019-01-21 09:13 | PN ---
Date/Time of Note Date/Time of Note DATE: 01/21/19 TIME: 09:07 Assessment/Plan VTE Prophylaxis Risk score (from Ns)>0 risk: 1 SCD applied (from Ns): Yes Pharmacological prophylaxis: NA/contraindicated Pharm contraindication: low risk/ambulating Lines/Catheters IV Catheter Type (from Nrs): Peripheral IV Assessment/Plan Assessment/Plan 53 yo man with T2DM and alcoholic cirrhosis presents with syncope and fall; dehydrated, possible UTI. #Syncope - Likely due to dehydration from recent gastroenteritis and inadequate water intake; also recent alcohol in the setting of cirrhosis. - Also possible UTI. - Admit to tele for at least 24 hrs cardiac monitoring. - No red flags for underlying cardiac or neurologic issues. #Recent alcohol use - Patient has tongue fasciculations, which is concerning for early alcohol withdrawal, and myoclonic jerks of the legs which is not. - Will start IV thiamine Wernicke's protocol. - Also ativan prn withdrawal symptoms. - Mg, phos replacement. - Will check ferritin also. #Fall - s/p forehead trauma. CT negative for hematoma. - Wound care. #UTI - Complains of burning dysuria. UA with leuk esterase - Pending urine culture - Ceftriaxone daily. #Diabetes - Severe hypoglycemia after resuming home glargine. - Hold long acting insulin, just sliding scale for now. #Cirrhosis - Lactulose for hepatic encephalopathy - I encouraged alcohol cessation. DVT: SCDs GI: None Result Diagram: 01/21/19 0504 01/21/19 0504 Subjective 24 Hr Interval Summary Free Text/Dictation Overnight had several episodes of hypoglycemia BS<30s requiring D50 pushes. This morning patient is awake, alert, feeling well. Denies complaints. On my exam he had violent tonic-clonic jerks of his legs. He says this happens often in the morning, is unrelated to alcohol use, and self-resolves. Exam/Review of Systems Exam Vitals Vital Signs Date Temp Pulse Resp B/P (MAP) Pulse Ox O2 O2 Flow FiO2 Time Delivery Rate 01/21/19 98.0 75 18 112/75 97 07:28 (87) 01/21/19 Room Air 03:54 Intake and Output 01/20/19 01/20/19 01/21/19 1515:00 23:00 07:00 IntakeIntake Total 50 ml BalanceBalance 50 ml Exam Gen: Well appearing, fatigued man supine in [facility] in no distress. Eyes: PERRL, mild icterus HEENT: Forehead bandaged. L eye slightly swollen. Moist mucous membranes, clear oropharynx Neck: Supple, no lymphadenopathy, no JVD Card: Regular rate and rhythm, no murmurs Pulm: Clear to auscultation bilaterally. Abd: Soft, slightly tender to deep palpation, nondistended, not tympanic. Normoactive bowel sounds. Ext: No cyanosis/clubbing/edema. Skin: No jaundice. Warm, dry, well perfused. Neuro: +tongue fasciculations. Intermittent episodes of tonic-clonic muscle jerking of legs. Patient awake, alert, in no distress. Results Results 24hrs Laboratory Tests Test 01/20/19 12:13 01/20/19 12:14 01/20/19 13:37 01/20/19 15:00 Prothrombin Time 22.3 #H Prothrombin Time Ratio 1.7 INR International 1.95 Normalized Ratio Activated 40.5 H Partial Thromboplast Time White Blood Count 10.9 #H Red Blood Count 3.03 L Hemoglobin 10.2 L Hematocrit 29.5 L Mean Corpuscular Volume 97.4 Mean Corpuscular 33.7 H Hemoglobin Mean Corpuscular 34.6 Hemoglobin Concent Red Cell Distribution 13.4 Width Platelet Count 69 L Mean Platelet Volume 9.7 Immature Granulocytes % 0.500 H Neutrophils % 91.2 H Lymphocytes % 3.7 L Monocytes % 4.2 Eosinophils % 0.0 Basophils % 0.4 Nucleated Red Blood 0.0 Cells % Immature Granulocytes # 0.050 H Neutrophils # 10.0 H Lymphocytes # 0.4 L Monocytes # 0.5 Eosinophils # 0.0 Basophils # 0.0 Nucleated Red Blood 0.0 Cells # Sodium Level 132 L Potassium Level 3.6 Chloride Level 96 L Carbon Dioxide Level 25 Anion Gap 11 Blood Urea Nitrogen 19 Creatinine 0.59 L Est Glomerular Filtrat > 60 Rate mL/min Glucose Level 216 Calcium Level 7.8 L Total Bilirubin 6.3 H Direct Bilirubin 4.00 H Indirect Bilirubin 2.3 H Aspartate Amino 147 H Transf (AST/SGOT) Alanine 69 Aminotransferase (ALT/SG PT) Alkaline Phosphatase 186 H Total Protein 5.5 L Albumin 2.1 L Globulin 3.40 H Albumin/Globulin Ratio 0.61 Salicylates Level < 1.0 L Acetaminophen Level < 10.0 L Ethyl Alcohol Level 25.0 H Ammonia 37 #H Urine Color PEG Urine Clarity CLEAR Urine pH 7.0 Urine Specific [place] 1.003 Urine Ketones NEGATIVE Urine Nitrite NEGATIVE Urine Bilirubin NEGATIVE Urine Urobilinogen 1+ H Urine Leukocyte Esterase NEGATIVE Urine Hemoglobin NEGATIVE Urine Glucose 3+ H Urine Total Protein NEGATIVE Test 01/20/19 18:19 01/20/19 20:01 01/20/19 21:21 01/20/19 21:24 Bedside Glucose 80 71 32 *L 32 *L Test 01/20/19 21:37 01/20/19 21:51 01/20/19 21:56 01/20/19 23:02 Bedside Glucose 127 94 24 *L Glucose Level 79 # Test 01/20/19 23:15 01/20/19 23:30 01/21/19 00:11 01/21/19 01:34 Bedside Glucose 168 119 116 43 *L Test 01/21/19 01:50 01/21/19 02:04 01/21/19 03:03 01/21/19 04:11 Bedside Glucose 179 153 176 131 Test 01/21/19 05:04 01/21/19 05:45 01/21/19 07:52 White Blood Count 10.6 Red Blood Count 2.84 L Hemoglobin 9.7 L Hematocrit 27.9 L Mean Corpuscular Volume 98.2 Mean Corpuscular 34.2 H Hemoglobin Mean Corpuscular 34.8 Hemoglobin Concent Red Cell Distribution 13.8 Width Platelet Count 61 L Mean Platelet Volume 11.4 H Immature Granulocytes % 0.800 H Neutrophils % 83.7 H Lymphocytes % 10.7 L Monocytes % 4.3 Eosinophils % 0.2 Basophils % 0.3 Nucleated Red Blood 0.0 Cells % Immature Granulocytes # 0.080 H Neutrophils # 8.9 H Lymphocytes # 1.1 Monocytes # 0.5 Eosinophils # 0.0 Basophils # 0.0 Nucleated Red Blood 0.0 Cells # Sodium Level 130 L Potassium Level 3.4 L Chloride Level 97 Carbon Dioxide Level 28 Anion Gap 5 Blood Urea Nitrogen 16 Creatinine 0.58 L Est Glomerular Filtrat > 60 Rate mL/min Glucose Level 164 Calcium Level 7.4 L Phosphorus Level 3.2 Magnesium Level 1.6 L Total Bilirubin 6.3 H Direct Bilirubin 4.30 H Indirect Bilirubin 2.0 H Aspartate Amino 140 H Transf (AST/SGOT) Alanine 66 Aminotransferase (ALT/SG PT) Alkaline Phosphatase 190 H Total Protein 5.6 L Albumin 2.0 L Globulin 3.60 H Albumin/Globulin Ratio 0.55 Thyroid Stimulating 1.610 Hormone (TSH) Bedside Glucose 161 77 Medications Medication Current Medications IV Flush (NS 3 ml) 3 ml PER PROTOCOL IV ; Start 01/20/19 at 15:30 Ondansetron HCl (Zofran Inj) 4 mg Q6H PRN IV NAUSEA/VOMITING; Start 01/20/19 at 15:30 Acetaminophen (Tylenol Tab) 650 mg Q6H PRN PO .PAIN 1-3 OR TEMP Last administered on 01/20/19 18:17; Admin Dose 650 MG; Start 01/20/19 at 15:30 Ceftriaxone Sodium 50 ml @ 100 mls/hr Q24H IVPB Last administered on 01/20/19 16:07; Admin Dose 100 MLS/HR; Start 01/20/19 at 16:00 Lactulose (Enulose) 30 gm DAILY PO Last administered on 01/21/19 08:53; Admin Dose 30 GM; Start 01/21/19 at 09:00 Diagnostic Test (Pha) (Accu-Chek) 1 ea 02 XX Last administered on 01/21/19at 01:53; Admin Dose 1 EA; Start 01/21/19 at 02:00 Insulin Glargine (Lantus) 18 units DAILY@2000 SC Last administered on 01/20/19at 21:07; Admin Dose 18 UNITS; Start 01/20/19 at 20:00 Insulin Aspart (Novolog Insulin Pen) 3 unit WITH MEALS SC Last administered on 01/20/19at 18:59; Admin Dose 3 UNIT; Start 01/20/19 at 18:00 Insulin Aspart (Novolog Insulin Pen) NOVOLOG *MODERATE* ALGORITHM WITH MEALS BEDTIME SC ; Start 01/20/19 at 18:00 Miscellaneous Information 1 ea NOTE XX ; Start 01/20/19 at 16:00 Glucose (Glutose) 15 gm Q15M PRN PO DECREASED GLUCOSE; Start 01/20/19 at 16:00 Glucose (Glutose) 22.5 gm Q15M PRN PO DECREASED GLUCOSE; Start 01/20/19 at 16:00 Dextrose (D50w Syringe) 25 ml Q15M PRN IV DECREASED GLUCOSE; Start 01/20/19 at 16:00 Dextrose (D50w Syringe) 50 ml Q15M PRN IV DECREASED GLUCOSE Last administered on 01/21/19at 01:48; Admin Dose 50 ML; Start 01/20/19 at 16:00 Glucagon (Glucagen) 1 mg Q15M PRN IM DECREASED GLUCOSE; Start 01/20/19 at 16:00 Glucose (Glutose) 15 gm Q15M PRN BUCCAL DECREASED GLUCOSE; Start 01/20/19 at 16:00 Calcium Carbonate (Tums) 500 mg PC MEALS PO Last administered on 01/21/19at 08:48; Admin Dose 500 MG; Start 01/20/19 at 19:00 Magnesium Sulfate 50 ml @ 25 mls/hr ONCE ONCE IVPB ; Start 01/21/19 at 09:00; Stop 01/21/19 at 10:59 Thiamine HCl 500 mg/Sodium Chloride 255 ml @ 127.5 mls/ hr ONCE IV ; Start 01/21/19 at 10:30; Stop 01/21/19 at 17:00 DERREK ARRIETA MD Jan 21, 2019 09:13
[2019-01-21] MEDS ORDERED: LORAZEPAM 2 MG INJ IV PRN (09:30)
[2019-01-21 11:50] VITALS: BP 120/67; PULSE 75; RESP 17
[2019-01-21] MEDS: THIAMINE 500 MG in SOD CHLORIDE 0.9% 250 ML IV SCH ×2 (14:53→22:26)
[2019-01-21 15:28] VITALS: BP 109/64; PULSE 81; RESP 17
[2019-01-21] MEDS: CEFTRIAXONE 1 GM/50 ML (PMX) 50 ML IVPB SCH (16:30)
[2019-01-21 20:00] VITALS: BP 116/64; PULSE 77; RESP 18
[2019-01-22] VITALS (7 sets, daily range): BP systolic 97–130; BP diastolic 56–71; PULSE 62–93; RESP 17–20
[2019-01-22] MEDS: ACCU-CHEK XX SCH (02:40)
[2019-01-22] MEDS: INSULIN ASPART [NOVOLOG] 3 ML PEN SC SCH ×7 (07:58→20:51)
[2019-01-22] MEDS: CALCIUM CARBONATE 500 MG CHEW TAB PO SCH ×3 (08:30→20:01)
[2019-01-22] MEDS ORDERED: MAGNESIUM SULFATE 2 GM/50 ML 50 ML IVPB ONE (08:30)
[2019-01-22] MEDS: THIAMINE 500 MG in SOD CHLORIDE 0.9% 250 ML IV SCH ×3 (08:31→20:31)
[2019-01-22] MEDS: LACTULOSE 30ML CUP PO SCH (08:31)
--- NOTE | 2019-01-22 11:16 | PN ---
Date/Time of Note Date/Time of Note DATE: 01/22/19 TIME: 11:12 Assessment/Plan VTE Prophylaxis Risk score (from Ns)>0 risk: 1 SCD applied (from Ns): Yes Pharmacological prophylaxis: NA/contraindicated Pharm contraindication: low risk/ambulating Lines/Catheters IV Catheter Type (from Nrsg): Peripheral IV Assessment/Plan Assessment/Plan 53 yo man with T2DM and alcoholic cirrhosis presents with syncope and fall; dehydrated, possible UTI. #Syncope - Likely due to dehydration from recent gastroenteritis and inadequate water intake; also recent alcohol in the setting of cirrhosis. - No red flags for underlying cardiac or neurologic issues. #Recent alcohol use - Patient has tongue fasciculations, which is concerning for early alcohol withdrawal, and myoclonic jerks of the legs which is not. - IV thiamine Wernicke's protocol. - Also ativan prn withdrawal symptoms. - Mg, phos replacement. #Fall - s/p forehead trauma. CT negative for hematoma. - Wound care. #UTI - Complains of burning dysuria. UA with leuk esterase - Pending urine culture - Ceftriaxone daily. #Diabetes - Severe hypoglycemia after resuming home glargine. - Hold long acting insulin, just sliding scale for now. #Cirrhosis - Lactulose for hepatic encephalopathy - I encouraged alcohol cessation. DVT: SCDs GI: None Result Diagram: 01/22/1953001/22/19530 Subjective 24 Hr Interval Summary Free Text/Dictation No acute overnight events. The patient claims he is walking here in the hospital. But when I tried to stand him up he was very unsteady. He then admits to using a walker and wheelchair at home. Exam/Review of Systems Exam Vitals Vital Signs Date Temp Pulse Resp B/P (MAP) Pulse Ox O2 O2 Flow FiO2 Time Delivery Rate 01/22/19 98.5 87 20 109/68 95 07:37 (82) 01/21/19 Room Air 03:54 Intake and Output 01/21/19 01/21/19 01/22/19 1515:00 23:00 07:00 IntakeIntake Total 200 ml 700 ml OutputOutput Total 250 ml 520 ml 100 ml BalanceBalance -50 ml 180 ml -100 ml Exam Gen: Well appearing, fatigued man supine in gurney in no distress. Eyes: PERRL, mild icterus HEENT: Forehead wound clean. L eye slightly swollen. Moist mucous membranes, clear oropharynx Neck: Supple, no lymphadenopathy, no JVD Card: Regular rate and rhythm, no murmurs Pulm: Clear to auscultation bilaterally. Abd: Soft, slightly tender to deep palpation, nondistended, not tympanic. Normoactive bowel sounds. Ext: No cyanosis/clubbing/edema. Skin: No jaundice. Warm, dry, well perfused. Neuro: No tongue fasciculations today. Patient awake, alert, in no distress. Results Results 24hrs Laboratory Tests Test 01/21/19 12:18 01/21/19 17:12 01/21/19 20:43 01/21/19 22:18 Bedside Glucose 120 137 250 H 265 H Test 01/22/19 02:07 01/22/19 05:31 01/22/19 07:44 Bedside Glucose 202 255 H White Blood Count 7.3 # Red Blood Count 2.82 L Hemoglobin 9.5 L Hematocrit 27.3 L Mean Corpuscular Volume 96.8 Mean Corpuscular 33.7 H Hemoglobin Mean Corpuscular 34.8 Hemoglobin Concent Red Cell Distribution 13.9 Width Platelet Count 61 L Mean Platelet Volume 10.7 H Immature Granulocytes % 1.800 H Neutrophils % 64.9 Lymphocytes % 23.8 Monocytes % 7.9 Eosinophils % 1.2 Basophils % 0.4 Nucleated Red Blood 0.3 H Cells % Immature Granulocytes # 0.130 H Neutrophils # 4.8 Lymphocytes # 1.8 Monocytes # 0.6 Eosinophils # 0.1 Basophils # 0.0 Nucleated Red Blood 0.0 Cells # Sodium Level 131 L Potassium Level 3.9 Chloride Level 103 Carbon Dioxide Level 24 Anion Gap 4 L Blood Urea Nitrogen 13 Creatinine 0.50 L Est Glomerular Filtrat > 60 Rate mL/min Glucose Level 193 Calcium Level 6.9 L Phosphorus Level 3.1 Magnesium Level 1.5 L Iron Level 47 Total Iron Binding 146 L Capacity Percent Iron Saturation 32 Ferritin 452.0 H Total Bilirubin 5.2 H Direct Bilirubin 3.40 H Indirect Bilirubin 1.8 H Aspartate Amino 108 H Transf (AST/SGOT) Alanine 57 Aminotransferase (ALT/SG PT) Alkaline Phosphatase 161 H Total Protein 5.4 L Albumin 1.9 L Globulin 3.50 H Albumin/Globulin Ratio 0.54 Medications Medication Current Medications IV Flush (NS 3 ml) 3 ml PER PROTOCOL IV ; Start 01/20/19 at 15:30 Ondansetron HCl (Zofran Inj) 4 mg Q6H PRN IV NAUSEA/VOMITING; Start 01/20/19 at 15:30 Acetaminophen (Tylenol Tab) 650 mg Q6H PRN PO .PAIN 1-3 OR TEMP Last administered on 01/20/19 18:17; Admin Dose 650 MG; Start 01/20/19 at 15:30 Ceftriaxone Sodium 50 ml @ 100 mls/hr Q24H IVPB Last administered on 01/21/19 16:30; Admin Dose 100 MLS/HR; Start 01/20/19 at 16:00 Lactulose (Enulose) 30 gm DAILY PO Last administered on 01/22/19 08:31; Admin Dose 30 GM; Start 01/21/19 at 09:00 Diagnostic Test (Pha) (Accu-Chek) 1 ea 02 XX Last administered on 01/22/19at 02:40; Admin Dose 1 EA; Start 01/21/19 at 02:00 Insulin Aspart (Novolog Insulin Pen) 3 unit WITH MEALS SC Last administered on 01/22/19 07:59; Admin Dose 3 UNIT; Start 01/20/19 at 18:00 Insulin Aspart (Novolog Insulin Pen) NOVOLOG *MODERATE* ALGORITHM WITH MEALS BEDTIME SC Last administered on 01/22/19 07:58; Admin Dose 6 UNIT; Start 01/20/19 at 18:00 Miscellaneous Information 1 ea NOTE XX ; Start 01/20/19 at 16:00 Glucose (Glutose) 15 gm Q15M PRN PO DECREASED GLUCOSE; Start 01/20/19 at 16:00 Glucose (Glutose) 22.5 gm Q15M PRN PO DECREASED GLUCOSE; Start 01/20/19 at 16:00 Dextrose (D50w Syringe) 25 ml Q15M PRN IV DECREASED GLUCOSE; Start 01/20/19 at 16:00 Dextrose (D50w Syringe) 50 ml Q15M PRN IV DECREASED GLUCOSE Last administered on 01/21/19at 01:48; Admin Dose 50 ML; Start 01/20/19 at 16:00 Glucagon (Glucagen) 1 mg Q15M PRN IM DECREASED GLUCOSE; Start 01/20/19 at 16:00 Glucose (Glutose) 15 gm Q15M PRN BUCCAL DECREASED GLUCOSE; Start 01/20/19 at 16:00 Calcium Carbonate (Tums) 500 mg PC MEALS PO Last administered on 01/22/19at 08:30; Admin Dose 500 MG; Start 01/20/19 at 19:00 Thiamine HCl 500 mg/Sodium Chloride 255 ml @ 127.5 mls/ hr TID IV Last administered on 01/22/19at 08:31; Admin Dose 127.5 MLS/HR; Start 01/21/19 at 15:30; Stop 01/23/19 at 09:00 Lorazepam (Ativan) 2 mg Q2H PRN IV alcohol withdrawal symptoms; Start 01/21/19 at 09:30 Insulin Glargine (Lantus) 10 units DAILY@2000 SC ; Start 01/22/19 at 20:00 DERREK ARRIETA MD Jan 22, 2019 11:16
[2019-01-22] MEDS: CEFTRIAXONE 1 GM/50 ML (PMX) 50 ML IVPB SCH (17:09)
[2019-01-22] MEDS: NEOMYC/POLYMYX/BACIT 30 GM OINT TOP SCH (20:31)
[2019-01-22] MEDS: INSULIN GLARGINE [LANTus] (100 UNITS/ML) SYG SC SCH (20:50)
[2019-01-23 02:00] VITALS: BP 112/70; PULSE 95; RESP 18
[2019-01-23] MEDS: ACCU-CHEK XX SCH (02:00)
[2019-01-23 08:02] VITALS: BP 109/65; PULSE 71; RESP 16
[2019-01-23] MEDS: CALCIUM CARBONATE 500 MG CHEW TAB PO SCH ×3 (08:41→21:06)
[2019-01-23] MEDS: LACTULOSE 30ML CUP PO SCH (08:41)
[2019-01-23] MEDS: INSULIN ASPART [NOVOLOG] 3 ML PEN SC SCH ×7 (08:42→21:00)
[2019-01-23] MEDS ORDERED: POTASSIUM CHLORIDE (SR) 20 MEQ TAB PO ONE (10:00)
[2019-01-23] MEDS: NEOMYC/POLYMYX/BACIT 30 GM OINT TOP SCH ×2 (10:08→21:06)
[2019-01-23] MEDS: THIAMINE 500 MG in SOD CHLORIDE 0.9% 250 ML IV SCH (11:46)
[2019-01-23] MEDS ORDERED: POTASSIUM CHLORIDE 20 MEQ POWDER FOR ORAL SOLN PO ONE (13:00)
[2019-01-23 14:00] VITALS: BP 118/67; PULSE 75; RESP 16
--- NOTE | 2019-01-23 14:22 | PN ---
Date/Time of Note Date/Time of Note DATE: 01/23/19 TIME: 14:19 Assessment/Plan VTE Prophylaxis Risk score (from Ns)>0 risk: 2 SCD applied (from Ns): Yes Pharmacological prophylaxis: NA/contraindicated Pharm contraindication: low risk/ambulating Lines/Catheters IV Catheter Type (from Nrsg): Saline Lock Urinary Cath still in place: No Assessment/Plan Assessment/Plan 53 yo man with T2DM and alcoholic cirrhosis presents with syncope and fall; dehydrated, possible UTI. #Syncope - Likely due to dehydration from recent gastroenteritis and inadequate water intake; also recent alcohol in the setting of cirrhosis. - No red flags for underlying cardiac or neurologic issues. #Recent alcohol use - IV thiamine Wernicke's protocol. - Also ativan prn withdrawal symptoms, currently not requiring. - Mg, phos replacement. #Fall - s/p forehead trauma. CT negative for hematoma. - Wound care. #UTI - Complains of burning dysuria. UA with leuk esterase - Urine culture growing blancas-sensitive E Coli - Plan for discharge on a course of oral cipro. #Diabetes - Continue current dose of insulin. #Cirrhosis - Lactulose for hepatic encephalopathy - I encouraged alcohol cessation. DVT: SCDs GI: None Dispo: Medically clear for discharge to SNF Result Diagram: 01/23/1962001/23/19620 Subjective 24 Hr Interval Summary Free Text/Dictation No acute overnight events. Patient doing well, no complaints. Exam/Review of Systems Exam Vitals Vital Signs Date Temp Pulse Resp B/P (MAP) Pulse Ox O2 O2 Flow FiO2 Time Delivery Rate 01/23/19 98.5 71 16 109/65 96 08:02 (80) 01/21/19 Room Air 03:54 Intake and Output 01/22/19 01/22/19 01/23/19 1515:00 23:00 07:00 IntakeIntake Total 255 ml 720 ml OutputOutput Total 1800 ml 400 ml BalanceBalance -1545 ml 320 ml Exam Gen: Well appearing, fatigued man supine in gurney in no distress. Eyes: PERRL, mild icterus HEENT: Forehead wound clean. L eye slightly swollen. Moist mucous membranes, clear oropharynx Neck: Supple, no lymphadenopathy, no JVD Card: Regular rate and rhythm, no murmurs Pulm: Clear to auscultation bilaterally. Abd: Soft, slightly tender to deep palpation, nondistended, not tympanic. Normoactive bowel sounds. Ext: No cyanosis/clubbing/edema. Skin: No jaundice. Warm, dry, well perfused. Neuro: No tongue fasciculations today. Patient awake, alert, in no distress. Results Results 24hrs Laboratory Tests Test 01/22/19 17:29 01/22/19 20:21 01/23/19 03:03 01/23/19 06:21 Bedside Glucose 156 276 H 249 H White Blood Count 5.2 # Red Blood Count 2.73 L Hemoglobin 9.1 L Hematocrit 26.6 L Mean Corpuscular Volume 97.4 Mean Corpuscular 33.3 H Hemoglobin Mean Corpuscular 34.2 Hemoglobin Concent Red Cell Distribution 14.1 Width Platelet Count 67 L Mean Platelet Volume 10.2 Immature Granulocytes % 1.900 H Neutrophils % 63.8 Lymphocytes % 22.6 Monocytes % 9.2 Eosinophils % 1.7 Basophils % 0.8 Nucleated Red Blood 0.0 Cells % Immature Granulocytes # 0.100 H Neutrophils # 3.3 Lymphocytes # 1.2 Monocytes # 0.5 Eosinophils # 0.1 Basophils # 0.0 Nucleated Red Blood 0.0 Cells # Sodium Level 133 L Potassium Level 2.9 *L Chloride Level 105 Carbon Dioxide Level 23 Anion Gap 5 Blood Urea Nitrogen 15 Creatinine 0.55 L Est Glomerular Filtrat > 60 Rate mL/min Glucose Level 228 H Calcium Level 7.0 L Total Bilirubin 3.0 #H Direct Bilirubin 1.60 #H Indirect Bilirubin 1.4 H Aspartate Amino 83 H Transf (AST/SGOT) Alanine 54 Aminotransferase (ALT/SG PT) Alkaline Phosphatase 215 H Total Protein 4.9 L Albumin 1.7 L Globulin 3.20 Albumin/Globulin Ratio 0.53 Test 01/23/19 07:52 01/23/19 11:49 Bedside Glucose 199 117 Medications Medication Current Medications IV Flush (NS 3 ml) 3 ml PER PROTOCOL IV ; Start 01/20/19 at 15:30 Ondansetron HCl (Zofran Inj) 4 mg Q6H PRN IV NAUSEA/VOMITING; Start 01/20/19 at 15:30 Acetaminophen (Tylenol Tab) 650 mg Q6H PRN PO .PAIN 1-3 OR TEMP Last administered on 01/20/19at 18:17; Admin Dose 650 MG; Start 01/20/19 at 15:30 Ceftriaxone Sodium 50 ml @ 100 mls/hr Q24H IVPB Last administered on 01/22/19 17:09; Admin Dose 100 MLS/HR; Start 01/20/19 at 16:00 Lactulose (Enulose) 30 gm DAILY PO Last administered on 01/23/19 08:41; Admin Dose 30 GM; Start 01/21/19 at 09:00 Diagnostic Test (Pha) (Accu-Chek) 1 ea 02 XX Last administered on 01/22/19 02:40; Admin Dose 1 EA; Start 01/21/19 at 02:00 Insulin Aspart (Novolog Insulin Pen) 3 unit WITH MEALS SC Last administered on 01/23/19 12:14; Admin Dose 3 UNIT; Start 01/20/19 at 18:00 Insulin Aspart (Novolog Insulin Pen) NOVOLOG *MODERATE* ALGORITHM WITH MEALS BEDTIME SC Last administered on 01/23/19 08:43; Admin Dose 4 UNIT; Start 9 at 18:00 Miscellaneous Information 1 ea NOTE XX ; Start 01/20/19 at 16:00 Glucose (Glutose) 15 gm Q15M PRN PO DECREASED GLUCOSE; Start 01/20/19 at 16:00 Glucose (Glutose) 22.5 gm Q15M PRN PO DECREASED GLUCOSE; Start 01/20/19 at 16:00 Dextrose (D50w Syringe) 25 ml Q15M PRN IV DECREASED GLUCOSE; Start 01/20/19 at 16:00 Dextrose (D50w Syringe) 50 ml Q15M PRN IV DECREASED GLUCOSE Last administered o n 01/21/19at 01:48; Admin Dose 50 ML; Start 01/20/19 at 16:00 Glucagon (Glucagen) 1 mg Q15M PRN IM DECREASED GLUCOSE; Start 01/20/19 at 16:00 Glucose (Glutose) 15 gm Q15M PRN BUCCAL DECREASED GLUCOSE; Start 01/20/19 at 16:00 Calcium Carbonate (Tums) 500 mg PC MEALS PO Last administered on 01/23/19at 12 :15; Admin Dose 500 MG; Start 01/20/19 at 19:00 Lorazepam (Ativan) 2 mg Q2H PRN IV alcohol withdrawal symptoms; Start 01/21/19 at 09:30 Insulin Glargine (Lantus) 10 units DAILY@2000 SC Last administered on 01/22/19at 20:50; Admin Dose 10 UNITS; Start 01/22/19 at 20:00 Neomycin/ Polymyxin/ Bacitracin (Neosporin Topical Oint) 1 applic BID TOP Last administered on 01/23/19at 10:08; Admin Dose 1 APPLIC; Start 01/22/19 at 21:00 DERREK ARRIETA MD Jan 23, 2019 14:22
[2019-01-23] MEDS: CEFTRIAXONE 1 GM/50 ML (PMX) 50 ML IVPB SCH (15:33)
[2019-01-23 19:25] VITALS: BP 109/65; PULSE 82; RESP 16
[2019-01-23] MEDS: INSULIN GLARGINE [LANTus] (100 UNITS/ML) SYG SC SCH (20:00)
[2019-01-23] MEDS ORDERED: INSULIN GLARGINE [LANTus] (100 UNITS/ML) SYG SC ONE (21:30)
[2019-01-24] MEDS: ACCU-CHEK XX SCH (01:25)
[2019-01-24 02:08] VITALS: BP 124/70; PULSE 76; RESP 16
[2019-01-24 08:17] VITALS: BP 112/69; PULSE 74; RESP 20
[2019-01-24] MEDS: CALCIUM CARBONATE 500 MG CHEW TAB PO SCH ×3 (08:18→18:35)
[2019-01-24] MEDS: LACTULOSE 30ML CUP PO SCH (08:18)
[2019-01-24] MEDS: NEOMYC/POLYMYX/BACIT 30 GM OINT TOP SCH (08:19)
[2019-01-24] MEDS: INSULIN ASPART [NOVOLOG] 3 ML PEN SC SCH ×6 (08:20→17:09)
[2019-01-24 13:45] VITALS: BP 133/70; PULSE 84; RESP 18
[2019-01-24] MEDS: CEFTRIAXONE 1 GM/50 ML (PMX) 50 ML IVPB SCH (15:46)
--- NOTE | 2019-01-24 16:10 | DS ---
Date/Time of Note Date/Time of Note DATE: 01/24/19 TIME: 16:04 Discharge Summary Admission/Discharge Info Admit Date/Time Jan 20, 2019 at 13:35 Discharge Date/Time Jan 24, 2019 Discharge Diagnosis Syncope due to urinary tract infection. Patient Condition: Fair Hx of Present Illness Mr. Leiva is a 53 yo man with insulin-dependent type II diabetes and alcoholic cirrhosis who presents with syncope and fall. He was in his usual state of health until about 3 days ago, when he had a day of acute nausea and vomiting. This self-resolved. Also had intermittent burning dysuria the last few days. Last night he was feeling confused and dizzy. This morning he got up and when he was leaving the house he suddenly felt dizzy again, had leg weakness, lost consciousness, and fell. He struck his forehead. He admits that he drank "half a cup" of beer this morning because "there was no water in the RV". Of note the patient was hospitalized on 08/2018 at [facility] for DKA and dehydration. He remained in the hospital very fatigued for almost a week before being discharged to [facility]. He spent another month at that SNF before finally going home. He had been doing well at home, no hospitalizations until now. In the ED he was afebrile, tachy to 105, hypotensive to 99/54. Labs notable for mild anemia to 10.2 (was 12.2 in August). CT head and neck negative for fracture, bleed or subluxation. Hospital Course CT head was negative for mass, shift, or bleed. His forehead wound was treated with antibiotic ointment. The patient was briefly monitored on telemetry but had no signs of alcohol withdrawal after 48 hours, so transferred to med/surg. Started on ceftriaxone for UTI. Urine culture grew blancas-sensitive E Coli. He finished a 5 day course of ceftriaxone while inpatient. The patient is very weak and fatigued and has a great difficulty with standing and walking; even with assistance from physical therapy. Plan to transfer to SNF for rehab before going home. Home Meds Reported Medications Insulin Aspart* (Novolog Insulin Pen*) 100 Unit/Ml Soln, 4 UNIT SC WITH MEALS, EA 01/20/19 Insulin Glargine,Hum.rec.anlog (Basaglar Kwikpen U-100) 100 Unit/1 Ml Insuln.pen, 18 UNIT SC QHS, EA 01/20/19 Lactulose* (Lactulose*) 20 Gm/30 Ml Solution, 45 ML PO DAILY, ML 01/20/19 Discontinued Reported Medications Lactulose* (Lactulose*) 20 Gm/30 Ml Solution, 45 ML PO Q6H, ML 08/30/18 Discontinued Scripts Insulin Aspart* (Novolog Insulin Pen*) 100 Unit/Ml Soln, 10 UNIT SC WITH MEALS, #30 EA Prov:DERREK ARRIETA MD 09/04/18 Insulin Glargine,Hum.rec.anlog (Basaglar Kwikpen U-100) 100 Unit/1 Ml Insuln.pen, 30 UNIT SC QHS, #30 EA 3 Refills Prov:DERREK ARRIETA MD 09/04/18 Multivitamin (MULTI VITAMIN DAILY) 1 Each Tablet, 1 TAB PO DAILY, #30 TAB Prov:TWANMANA. 07/13/18 Thiamine* (Thiamine*) 100 Mg Tablet, 100 MG PO DAILY, #30 TAB Prov:MANA TRENT. 07/13/18 Folic Acid* (Folic Acid*) 1 Mg Tablet, 1 MG PO DAILY, #30 TAB Prov:TWANERICKSONOlvin M. 07/13/18 Spironolactone* (Aldactone*) 25 Mg Tablet, 25 MG PO DAILY for 30 Days, TAB Prov:TWANSAMMRUSTAM M. 07/13/18 Propranolol Hcl* (Propranolol Hcl*) 10 Mg Tablet, 10 MG PO BID for 30 Days, TAB Prov:MANA TRENT. 07/13/18 Primary Care Provider Not On Staff Doctor Time spent on discharge: > 30 minutes Pending Labs Laboratory Tests Test 01/23/19 17:24 01/23/19 21:03 01/24/19 04:25 01/24/19 08:17 Bedside 275 75 160 Glucose mg/dL (70-220) mg/dL (70-220) mg/dL (70-220) White Blood 5.4 Count 10^3/ul (4.8-1 0.8) Red Blood 2.77 Count 10^6/ul (4.70- 6.10) Hemoglobin 9.5 g/dl (14.0-18. 0) Hematocrit 27.7 % (42.0-52.0) Mean 100.0 Corpuscular fl (82.0-101.0 Volume ) Mean 34.3 Corpuscular pg (29.0-33.0) Hemoglobin Mean 34.3 Corpuscular g/dl (32.0-37. Hemoglobin Conc 0) ent Red Cell 14.5 Distribution % (11.5-14.5) Width Platelet Count 67 10^3/UL (140-4 15) Mean Platelet 10.2 Volume fl (7.4-10.4) Immature 3.000 Granulocytes % % (0.001-0.429 ) Neutrophils % 56.4 % (39.0-77.0) Lymphocytes % 27.5 % (15.0-51.0) Monocytes % 10.7 % (0.0-11.0) Eosinophils % 1.7 % (0.0-7.0) Basophils % 0.7 % (0.0-2.0) Nucleated Red 0.0 Blood Cells % /100WBC (0.0-0 .0) Immature 0.160 Granulocytes # 10^3/ul (0.0-0 .031) Neutrophils # 3.1 10^3/ul (1.6-7 .5) Lymphocytes # 1.5 10^3/ul (0.8-2 .9) Monocytes # 0.6 10^3/ul (0.3-0 .9) Eosinophils # 0.1 10^3/ul (0.0-0 .5) Basophils # 0.0 10^3/ul (0.0-0 .1) Nucleated Red 0.0 Blood Cells # 10^3/ul (0.0-0 .0) Sodium Level 135 mmol/L (135-14 4) Potassium 3.9 Level mmol/L (3.5-5. 1) Chloride Level 110 mmol/L (97-110 ) Carbon Dioxide 21 Level mmol/L (21-31) Anion Gap 4 (5-13) Blood Urea 11 Nitrogen mg/dl (7-20) Creatinine 0.56 mg/dl (0.61-1. 24) Est Glomerular > 60 Filtrat mL/min (>60) Rate mL/min Glucose Level 172 mg/dl (70-220) Calcium Level 7.3 mg/dl (8.4-10. 2) Phosphorus 3.2 Level mg/dl (2.5-4.9 ) Magnesium 1.5 Level mg/dl (1.7-2.5 ) Total 2.1 Bilirubin mg/dl (0.2-1.3 ) Direct 0.60 Bilirubin mg/dl (0.00-0. 20) Indirect 1.5 Bilirubin mg/dl (0-1.1) Aspartate Amino 86 Transf (AST/SGO IU/L (15-46) T) Alanine 58 Aminotransferas IU/L (13-69) e (ALT/SGPT) Alkaline 263 Phosphatase IU/L (42-121) Total Protein 5.0 g/dl (6.1-8.1) Albumin 1.7 g/dl (3.3-4.9) Globulin 3.30 g/dl (1.3-3.2) Albumin/Globuli 0.51 n Ratio Test 01/24/19 12:05 Bedside 311 Glucose mg/dL (70-220) DERREK ARRIETA MD Jan 24, 2019 16:10
== END 2019-01-24 18:51 | DRG 690 ==
LOC: E/R 11:48 → 6WM 13:35 → SUATTDRO 15:01 → 6WM 16:34 → PP2 01-22 20:59
PROVIDERS: ADMIT Internal Medicine; ATTEND Internal Medicine
DX: N39.0 Urinary tract infection, site not specified (principal); F10.239 Alcohol dependence with withdrawal, unspecified; K70.40 Alcoholic hepatic failure without coma; E86.0 Dehydration; K52.9 Noninfective gastroenteritis and colitis, unspecified; D69.6 Thrombocytopenia, unspecified; E11.9 Type 2 diabetes mellitus without complications; Z79.4 Long term (current) use of insulin; M54.2 Cervicalgia; R22.0 Localized swelling, mass and lump, head; S01.512A Laceration without foreign body of oral cavity, initial encounter; W19.XXXA Unspecified fall, initial encounter; R51 Headache; S09.90XA Unspecified injury of head, initial encounter; S13.9XXA Sprain of joints and ligaments of unspecified parts of neck, initial encounter; Y90.1 Blood alcohol level of 20-39 mg/100 ml
CPT/HCPCS: 70450; 71045; 72125; 80053; 80307; 81003; 82140; 82728; 82947; 82962; 83036; 83540; 83735; 84100; 84443; 85025; 85610; 85730; 86850; 86900; 86901; 87086; 90471; 90715; 93005; 97110; 97116; 97162; 97530; J0696; J1815; J3411; J3475; J7030; J7042; J7050

== ENCOUNTER 2019-02-26 17:11 | Emergency (ER) | payer BC ==
[~2019-02-26] VITALS: Ht 165.1 cm; Wt 63.0 kg
[~2019-02-26 17:11] MED LIST changes: -FOLI-49 PO; -MULT-761 PO; -PROP10TA6 PO; -SPIR25TA PO; -THIA100T10 PO
[2019-02-26 17:21] VITALS: Ht 165.1 cm; Wt 63.0 kg
[2019-02-26] MEDS ORDERED: SOD CHLORIDE 0.9% 630 ML IV ONE (20:30)
[2019-02-26] MEDS ORDERED: ACCU-CHEK XX ONE (21:00)
[2019-02-26] MEDS ORDERED: INSULIN LISPRO 100 UNIT/ML VIAL SC ONE (21:00)
[2019-02-26] MEDS ORDERED: DEXTROSE 50% 50 ML SYRINGE IV PRN ×2 (21:30)
[2019-02-26] MEDS ORDERED: GLUCOSE GEL 15 GRAM TUBE PO PRN ×2 (21:30)
[2019-02-26] MEDS ORDERED: GLUCOSE GEL 15 GRAM TUBE BUCCAL PRN (21:30)
[2019-02-26] MEDS ORDERED: GLUCAGON 1 MG INJ IM PRN (21:30)
[2019-02-26 22:10] VITALS: BP 126/82; PULSE 79; RESP 19
== END 2019-02-26 22:20 | disposition home or self-care (01) ==
LOC: E/R 17:11
DX: E11.65 Type 2 diabetes mellitus with hyperglycemia (principal); I10 Essential (primary) hypertension; Z79.4 Long term (current) use of insulin
CPT/HCPCS: 80048; 81003; 82962; 83735; 84100; 85025; 96372; J1815; J7030; Z7502

== ENCOUNTER 2019-03-04 20:33 | Emergency (ER) | payer BC ==
[~2019-03-04] VITALS: Ht 165.1 cm; Wt 65.5 kg
[~2019-03-04 20:33] MED LIST changes: +PANT40TA3 PO; +POTA10TA37 PO
[2019-03-04 20:41] VITALS: Ht 165.1 cm; Wt 65.5 kg
[2019-03-04] MEDS ORDERED: SOD CHLORIDE 0.9% 1,000 ML IV ONE (22:30)
[2019-03-04] MEDS ORDERED: IBUPROFEN 200 MG TAB PO ONE (22:30)
[2019-03-04 23:41] VITALS: BP 124/69; PULSE 69; RESP 12
== END 2019-03-05 00:10 | disposition home or self-care (01) ==
LOC: E/R 20:33
DX: E11.65 Type 2 diabetes mellitus with hyperglycemia (principal); Z79.4 Long term (current) use of insulin
CPT/HCPCS: 36415; 80053; 81003; 82803; 82962; 83690; 84484; 85025; J7030; Z7502; Z7610